=== PATIENT | male | born 1960 | race Caucasian/White ===

== ENCOUNTER → 2018-02-12 | Outpatient (CLI) | payer OTHER ==
[2018-02-12 14:20] LABS: HCT 45.8 % (39.0-53.0); HGB 14.5 gm/dL (13.0-17.5); MCH 29.8 pg (25.0-35.0); MCHC 31.7 g/dL (31.0-37.0); MCV 94.1 fL (80.0-100.0); Mean Platelet Volume 6.7; Platelet Count 300 k/uL (150-450); RBC 4.87 m/uL (4.30-5.90); RDW 13.7 % (11.5-15.5)
[2018-02-12 14:28] LABS: Potassium 4.5 mmol/L (3.5-5.1)
[2018-02-12 16:24] LABS: Magnesium 1.8 mg/dL (1.6-2.3)
== END | disposition home or self-care (01) ==
LOC: LABPAT 13:56
PROVIDERS: ATTEND Internal Medicine Interventional Cardiology
DX: Z01.812 Encounter for preprocedural laboratory examination (principal); I10 Essential (primary) hypertension; E78.2 Mixed hyperlipidemia; I20.0 Unstable angina
CPT/HCPCS: 36415; 80051; 82565; 82947; 83735; 84520; 85027

== ENCOUNTER 2018-02-19 08:01 | Day surgery (SDC) | payer OTHER ==
[2018-02-19] MEDS ORDERED: diphenhydrAMINE 50 MG/ML 1 ML VIAL ONE (08:57)
[2018-02-19] MEDS ORDERED: VERAPAMIL 2.5 MG/ML 2 ML AMP ONE (08:57)
[2018-02-19] MEDS ORDERED: MIDAZOLAM 2 MG/2 ML VIAL ONE (08:57)
[2018-02-19] MEDS ORDERED: LIDOCAINE 1% INJ 10MG/ML (20 ML MDV) ONE (08:57)
[2018-02-19] MEDS ORDERED: ASPIRIN 325 MG TAB PO ONE (09:30)
[2018-02-19] MEDS ORDERED: ALPRAZolam 0.25 MG TAB PO PRN (09:30)
[2018-02-19] MEDS ORDERED: SODIUM CHLORIDE 0.9% 1,000 ML in EMPTY BAG 1 BAG IV ONE (09:30)
[2018-02-19] MEDS ORDERED: NITROGLYCERIN SL TABS 0.4 MG TAB SUBLINGUAL PRN ×2 (09:30→10:55)
[2018-02-19] MEDS ORDERED: ALPRAZolam 0.5 MG TAB PO PRN (09:30)
[2018-02-19] MEDS ORDERED: ATORVASTATIN 80 MG TAB PO ONE (09:30)
[2018-02-19] MEDS ORDERED: MIDAZOLAM 2 MG/2 ML VIAL IVP ONE (09:35)
[2018-02-19] MEDS ORDERED: diphenhydrAMINE 50 MG/ML 1 ML VIAL IVP ONE (09:35)
[2018-02-19] MEDS ORDERED: LIDOCAINE 1% INJ 10MG/ML (20 ML MDV) SQ ONE (09:39)
[2018-02-19] MEDS ORDERED: VERAPAMIL SYRINGE (5 MG/10 ML) INTRAARTER ONE ×2 (09:43→10:18)
[2018-02-19] MEDS ORDERED: HEPARIN SODIUM 1,000 UN/ML (10ML VL) ONE (09:43)
[2018-02-19] MEDS ORDERED: HEPARIN SODIUM 1,000 UN/ML (10ML VL) IVPB ONE (09:45)
[2018-02-19] MEDS ORDERED: BIVALIRUDIN BOLUS 250 MG/50 ML IV ONE (10:05)
[2018-02-19] MEDS ORDERED: BIVALIRUDIN 250 MG in SODIUM CHLORIDE 0.9% 50 ML IV ONE (10:06)
[2018-02-19] MEDS ORDERED: NITROGLYCERIN 1000MCG/10ML SYRINGE INTRACORON ONE (10:13)
[2018-02-19] MEDS ORDERED: CLOPIDOGREL 75 MG TAB ONE (10:16)
[2018-02-19] MEDS ORDERED: IOPAMIDOL-300 100ML BTL INJ ONE (10:17)
[2018-02-19] MEDS ORDERED: CLOPIDOGREL 75 MG TAB PO ONE (10:18)
[2018-02-19] MEDS ORDERED: IOPAMIDOL-370 100ML BTL INJ ONE (10:18)
[2018-02-19] MEDS ORDERED: ATROPINE SULFATE 0.1 MG/ML 10ML SYRINGE IV PRN (10:55)
[2018-02-19] MEDS ORDERED: ZOLPIDEM 5 MG TAB PO PRN (10:55)
[2018-02-19] MEDS ORDERED: MAG HYDROX/AL HYDROX/SIMETH 30 ML CUP PO PRN (10:55)
[2018-02-19] MEDS ORDERED: RX INFO: IV CONTRAST WAS GIVEN 1 EACH MISC MISCELLANE PRN (10:55)
--- NOTE | 2018-02-19 11:51 | CC ---
CARDIAC CATHETERIZATION REPORT DATE OF SERVICE: 02/19/2018 PROCEDURES: 1. Left heart catheterization and coronary angiography. 2. PTCA and stenting of proximal dominant circumflex coronary artery with a drug- eluting stent. PERFORMED BY: Dr. Carlos Enrique Rodrigez. Moderate conscious sedation time was 47 minutes. Patient was administered Versed and Benadryl and his oxygen saturation, hemodynamics and EKG were monitored closely. CLINICAL INFORMATION: Mr. Tyshawn Camacho is a 57-year-old gentleman with a known history of CAD, prior stenting of LAD, which was a proximal LAD performed in November of 2013. At that time, he had moderate disease in the dominant circumflex and also small nondominant RCA. He is going for a cervical spine surgery, but before surgery, he has noticed that he is having significant symptoms of chest pressure and heaviness even with [id number] activity. Walking a block is also an effort for him with heaviness and pressure in the upper chest and therefore I would recommend coronary angiography. Risks, benefits, options, rationale were explained. PROCEDURE NOTE: Under local anesthesia and strict aseptic precautions, a 6-Japanese introducer was placed in the right radial artery. I used a JR 4 catheter for selective coronary angiography of the left system. I used a JL 3.5 to selectively perform coronary angiography of the LAD. For the circumflex, I switched over to an Ultimate 1 catheter, with this I was able to get good injections. I then noted that he had a significant lesion in the proximal circumflex and performed intervention in the same setting. PCI PROCEDURE DETAILS: The existing 6-Japanese introducer in the right radial artery was used to perform procedure. An Ultimate 1 guide catheter was used to cannulate the left coronary artery with more selective emphasis of the circumflex. A BMW wire was used to cross the lesion. Without predilatation, a 12 mm long 3.0 caliber Xience stent was deployed at 12 atmospheres. Patient had chest pain and very mild inferior ST elevation. Excellent angiographic result was achieved without complication. He received Angiomax bolus and infusion as per protocol and also received 300 mg of Plavix. He was already on aspirin and Plavix combination. Excellent angiographic result without complication was achieved and the findings were discussed with the patient and family. CARDIAC CATHETERIZATION FINDINGS, DETAILS: RIGHT CORONARY ARTERY: Technically this is a nondominant vessel, small in caliber and distribution. Mild diffuse disease gives off a conus branch, has no critical stenosis but there is diffuse disease noted in the mid and distal portion of the nondominant RCA. LEFT MAIN CORONARY ARTERY: Short patent vessel that seems immediately bifurcates. Left main hardly exists. LEFT ANTERIOR DESCENDING CORONARY ARTERY: Good caliber vessel that is widely patent at the site of previous stenting. Gives off septal and diagonal branches, has no significant disease other than minor irregularities and the stented segment is widely patent. LEFT POSTERIOR CIRCUMFLEX CORONARY ARTERY : Technically, this is a dominant vessel that has a proximal smooth lesion of about 70%-75%. eccentric in nature. Best seen in the AP caudal projection, it gives off an obtuse marginal and distally bifurcates into PDA and PLV, both of which have minor diffuse irregularities. There is mild to moderate diffuse disease throughout, but the mid/proximal circumflex has a 70%-75% eccentric lesion. LEFT VENTRICULOGRAM was not performed but LV pressures were checked. The left ventricular end-diastolic pressure was 12 mmHg. Patient was advised PCI of circumflex that was performed expeditiously with excellent angiographic result and a drug-eluting stent was deployed. MMODL / IJN: [id number] /
[2018-02-19] MEDS: SODIUM CHLORIDE 0.9% 1,000 ML IV SCH (15:27)
[2018-02-19 15:36] VITALS: BMI 44.1
[2018-02-19] MEDS ORDERED: PRAVASTATIN SODIUM 80 MG TAB PO SCH (21:03)
[2018-02-19] MEDS ORDERED: CLOPIDOGREL 75 MG TAB PO SCH (21:03)
[2018-02-19] MEDS: METOPROLOL TARTRATE 50 MG TAB PO SCH (21:56)
[2018-02-19 23:33] VITALS: TEMP 97.9
[2018-02-20] MEDS: SODIUM CHLORIDE 0.9% 1,000 ML IV SCH (01:04)
[2018-02-20 04:22] VITALS: RESP 16
[2018-02-20 06:15] LABS: Basophils # (A) 0.1 k/uL (0-0.2); Basophils % (A) 1 %; Eosinophils # (A) 0.5 k/uL (0-0.7); Eosinophils % (A) 5 %; HCT 45.8 % (39.0-53.0); HGB 14.9 gm/dL (13.0-17.5); Lymphocytes # (A) 3.7 k/uL (1.0-4.8); Lymphocytes % (A) 37 %; MCH 30.3 pg (25.0-35.0); MCHC 32.5 g/dL (31.0-37.0); MCV 93.4 fL (80.0-100.0); Mean Platelet Volume 6.7; Monocytes # (A) 0.7 k/uL (0-1.0); Monocytes % (A) 7 %; Neutrophils # (A) 4.9 k/uL (1.3-7.7); Neutrophils % (A) 49 %; Platelet Count 286 k/uL (150-450); RBC 4.91 m/uL (4.30-5.90); RDW 13.5 % (11.5-15.5); WBC 10.1 k/uL (3.8-10.6)
[2018-02-20 06:30] LABS: Calcium 9.3 mg/dL (8.4-10.2); Potassium 4.7 mmol/L (3.5-5.1)
[2018-02-20] MEDS ORDERED: LEVOTHYROXINE 100 MCG TAB PO SCH (06:30)
[2018-02-20] MEDS ORDERED: LEVOTHYROXINE 75 MCG TAB PO SCH (06:30)
[2018-02-20] MEDS: METOPROLOL TARTRATE 50 MG TAB PO SCH (08:47)
[2018-02-20] MEDS ORDERED: CLOPIDOGREL 75 MG TAB PO SCH (09:00)
[2018-02-20] MEDS ORDERED: LOSARTAN-HCTZ 50-12.5 MG 1 EACH TAB PO SCH (09:00)
[2018-02-20] MEDS ORDERED: ASPIRIN 81 MG PO SCH ×2 (09:00)
[2018-02-20 09:04] VITALS: BP 133/91; PULSE 69
--- NOTE | 2018-02-20 09:26 | DS ---
DISCHARGE SUMMARY DATE OF ADMISSION: 02/19/2018. DATE OF DISCHARGE: 02/20/2018. DIAGNOSES: 1. Unstable angina. 2. Hypertension. 3. Hypercholesterolemia. PROCEDURES PERFORMED: Left heart catheterization, coronary angiography and PTCA and stenting of proximal/mid circumflex with a drug-eluting stent. Mr. Camacho was brought in a cardiac cath because of symptoms strongly suggestive of unstable angina. This gentleman underwent stenting of the proximal LAD 4 years ago, has diffusely diseased dominant circumflex and a nondominant RCA. Cardiac cath revealed that the LAD stent was widely patent and no significant disease was noted in LAD. There was mild to moderate diffuse disease in circumflex, which was a dominant vessel with a proximal smooth 70% to 75% stenosis which was progression of disease compared to the previous study from 2013. He underwent PCI of this with a single 12 mm long 3.0 caliber drug-eluting stent with excellent angiographic result. Postprocedure course was uneventful. His right radial cath site is clean and dry with a good pulse. His labs were reviewed and EKG was reviewed. Both of these were unremarkable. Blood pressure today was 128/70, pulse rate was 70 per minute. S1, S2 heard normally, short systolic murmur at base was audible. Lungs are clear. Abdomen and lower extremity exam was unchanged. Right radial cath site is clean and dry with a good pulse. This patient will be discharged today and will be seen by me in the office this Monday at 9 a.m. February 23. Discharge instructions regarding activity, diet, medications, and prescriptions were given. He will be discharged on 80 mg of pravastatin since this is the only statin he can tolerate. He will continue beta blockers, aspirin, Plavix and losartan as advised. I will see him in the office on the . MMODL / IJN: [id number] /
== END 2018-02-20 09:05 ==
LOC: CATHCVL 08:01 → 6SEL 10:15 → CATHCVL 02-20 09:05
PROVIDERS: ATTEND Internal Medicine Interventional Cardiology
DX: I25.110 Atherosclerotic heart disease of native coronary artery with unstable angina pectoris (principal); I10 Essential (primary) hypertension; E78.5 Hyperlipidemia, unspecified; Z72.0 Tobacco use; Z95.5 Presence of coronary angioplasty implant and graft; E78.00 Pure hypercholesterolemia, unspecified; E66.9 Obesity, unspecified; Z68.41 Body mass index [BMI] 40.0-44.9, adult; Z79.02 Long term (current) use of antithrombotics/antiplatelets; Z79.82 Long term (current) use of aspirin; Z79.890 Hormone replacement therapy; Z79.899 Other long term (current) drug therapy; Z88.8 Allergy status to other drugs, medicaments and biological substances
CPT/HCPCS: 93458; 80048; 85025; C9600; C1769 ×3; C1874; C1887; C1894; J2250; J1200; J2001; J1644; J0583; Q9967 ×2

== ENCOUNTER → 2019-01-22 | Outpatient (CLI) | payer OTHER ==
--- NOTE | 2019-01-22 12:23 | XR ---
EXAMINATION TYPE: XR knee limited RT DATE OF EXAM: 01/22/2019 CLINICAL HISTORY: Right knee pain TECHNIQUE: 2 views of the right knee were obtained. COMPARISON: None. FINDINGS: There is no acute fracture/dislocation evident in right knee. There are tricompartmental o steophytes and bicompartmental chondrocalcinosis of the medial and lateral compartments. Calcificatio ns beginning in the lateral compartment extend into the lateral recess additionally there is bulbous contour and expansion of the proximal fibular head, partially visualized with possible old fracture d eformity of the proximal diaphysis of the fibular head. No sizable suprapatellar joint effusion. Exte nsor mechanism is intact radiographically. Normal atherosclerosis.. IMPRESSION: 1. No acute fracture or dislocation in the right knee. 2. Moderate tricompartmental arthrosis and bicompartmental chondrosis with additional calcifications in the lateral compartment and lateral recess that may relate to sequela prior injury/old calcified m eniscal tear. 3. Expansile fibular head lesion, partially visualized. This could be further evaluated with oblique plain film radiographs or CTs. This most commonly represents a benign nonossifying fibroma.
--- NOTE | 2019-01-22 13:47 | XR ---
EXAMINATION TYPE: XR lumbosacral spine min 4V DATE OF EXAM: 01/22/2019 CLINICAL HISTORY: Low back pain in right knee pain TECHNIQUE: Frontal, lateral, and oblique images of the lumbar spine are obtained. COMPARISON: None FINDINGS: There are 5 lumbar type vertebral bodies identified. The lumbar spine shows satisfactory alignment without evidence of acute fracture or dislocation. Vertebral body heights and disk space he ights are within normal limits. Multilevel facet arthropathy is seen as well as small anterior osteo phytes throughout the visualized lower thoracic and lumbar spine. The oblique images appear within no rmal limits. The overlying soft tissue appears unremarkable. Moderate atherosclerosis of the abdomin al aorta. IMPRESSION: 1. No acute fracture or malalignment is seen in the lumbar spine. 2. Mild multilevel degenerative disc disease of the lumbar spine.
== END | disposition home or self-care (01) ==
LOC: RADXRMAIN 11:23
PROVIDERS: ATTEND Family Medicine
DX: M51.36 Other intervertebral disc degeneration, lumbar region (principal); M17.11 Unilateral primary osteoarthritis, right knee
CPT/HCPCS: 72110

== ENCOUNTER 2020-05-19 20:24 | Inpatient (IN) | payer OTHER ==
[2020-05-19] MEDS ORDERED: NITROGLYCERIN SL TABS 0.4 MG TAB SUBLINGUAL STA ×2 (20:29)
[2020-05-19] MEDS ORDERED: ASPIRIN 81 MG PO STA (20:29)
[2020-05-19 20:34] LABS: Glucose,Whole Blood 154 mg/dL (75-99)
[2020-05-19] MEDS ORDERED: HEPARIN SODIUM,PORCINE 5,000 UNIT/ML 1 ML VIAL IV ONE (20:34)
--- NOTE | 2020-05-19 20:34 | ED ---
General Adult HPI - General Stated complaint: Chest Pain Time Seen by Provider: 05/19/20 20:29 Source: patient, EMS, RN notes reviewed Mode of arrival: EMS Limitations: no limitations - History of Present Illness Initial comments: Patient is a pleasant 60-year-old male presenting to the emergency Department with complaints of chest discomfort. Onset of symptoms was around 7:00. Patient was doing a lot of heavy exertion today. Discomfort feels like indigestion in his chest is radiation towards the neck. Patient did have associated dyspnea, nausea and diaphoresis that have resolved. Discomfort was severe however has improved to 7/10 with 1 nitroglycerin by EMS. Symptoms are similar to previous time patient needed stents. No leg pain or leg swelling. - Related Data Home Medications Medication Instructions Recorded Confirmed Levothyroxine Sodium [Synthroid] 175 mcg PO DAILY 11/29/13 02/19/18 Clopidogrel Bisulfate [Plavix] 75 mg PO HS 02/14/18 02/19/18 HYDROcodone/APAP 10-325MG [[place] 1 tab PO BID PRN 02/14/18 02/19/18 10-325] Losartan-Hctz 50-12.5 mg [Hyzaar 2 each PO QAM 02/14/18 02/19/18 50-12.5] Previous Rx's Medication Instructions Recorded Aspirin EC [Ecotrin Low Dose] 81 mg PO DAILY #30 tablet. 12/04/13 Aspirin 81 mg PO DAILY chew 02/19/18 Metoprolol Tartrate [Lopressor] 50 mg PO DAILY #0 02/19/18 Nitroglycerin Sl Tabs [Nitrostat] 0.4 mg SUBLINGUAL Q5M PRN #25 tab 02/19/18 Pravastatin Sodium [Pravachol] 80 mg PO HS #0 02/19/18 Allergies Allergy/AdvReac Type Severity Reaction Status Date / Time atorvastatin calcium AdvReac Swelling Verified 05/19/20 20:31 [From Lipitor] Review of Systems ROS Statement: Those systems with pertinent positive or pertinent negative responses have been documented in the HPI. ROS Other: All systems not noted in ROS Statement are negative. Constitutional: Denies: fever Eyes: Denies: eye pain ENT: Denies: ear pain Respiratory: Reports: as per HPI. Denies: cough Cardiovascular: Reports: as per HPI, chest pain Endocrine: Denies: fatigue Gastrointestinal: Denies: abdominal pain Genitourinary: Denies: dysuria Musculoskeletal: Denies: back pain Skin: Denies: rash Neurological: Denies: weakness Past Medical History Past Medical History: Chest Pain / Angina, Hyperlipidemia, Hypertension, My ocardial Infarction ([place]), Osteoarthritis (OA), Renal Disease, Sleep Apnea/CPAP/BIPAP, Thyroid Disorder Additional Past Medical History / Comment(s): no cpap used, "lung infect ion"2014, constipation, hemorrhoid, poor kidney funtion- 50% function Last Myocardial Infarction Date:: unknown History of Any Multi-Drug Resistant Organisms: None Reported Past Surgical History: Heart Catheterization With Stent, Orthopedic Surgery Additional Past Surgical History / Comment(s): LEFT HIP SX -PIN PLACED-SINCE REMOVED, one cardiac stent, rt knee surgery with clamp and screw-later removed Past Anesthesia/Blood Transfusion Reactions: No Reported Reaction Additional Past Anesthesia/Blood Transfusion Reaction / Comment(s): . Date of Last Stent Placement:: 2013 Past Psychological History: No Psychological Hx Reported Additional Psychological History / Comment(s): denies Past Alcohol Use History: None Reported Additional Past Alcohol Use History / Comment(s): quit smoking 2007, smoked for 2 yrs, up to 4 PPD Past Drug Use History: Marijuana - Past Family History Mother Family Medical History: Deep Vein Thrombosis (DVT) General Exam Limitations: no limitations General appearance: alert Head exam: Present: normocephalic Eye exam: Present: normal appearance Neck exam: Present: normal inspection Respiratory exam: Present: normal lung sounds bilaterally Cardiovascular Exam: Present: regular rate, normal rhythm Expanded Peripheral pulses: 2+: Radial (R), Radial (L), Dorsalis Pedis (R), Dorsalis Pedis (L) GI/Abdominal exam: Present: soft. Absent: tenderness Extremities exam: Present: normal inspection. Absent: pedal edema, calf tenderness Neurological exam: Present: alert Psychiatric exam: Present: normal affect, normal mood Skin exam: Present: normal color Course Vital Signs 05/19/20 05/19/20 05/19/20 20:25 20:30 20:37 Temperature 98.1 F Pulse Rate 81 73 78 Respiratory 18 18 18 Rate Blood Pressure 154/110 158/111 144/108 O2 Sat by Pulse 97 96 92 L Oximetry 05/19/20 20:47 Temperature Pulse Rate 81 Respiratory 18 Rate Blood Pressure 137/99 O2 Sat by Pulse 95 Oximetry - Reevaluation(s) Reevaluation #1: 05/19/20 20:31 STEMI alert was called 05/19/20 20:33 Dr. Beatty is present and evaluating the patient. 05/19/20 20:35 Repeat EKG shows normal sinus rhythm 78. IL 186. QRS 70. QT 378. QTC 4:30. Normal axis. Normal QRS. Inferior ST elevation with poor light changes V6. ST depression V1 and V2 as well as aVL. 05/19/20 20:58 Dr. Fisher has been paged for admission, covering for Dr. Alonzo. EKG Findings - EKG Comments: EKG Findings:: EKG shows sinus rhythm with a rate of 77. IL 192. QRS 72. QT 368. QTC 416. Normal axis. No QRS. Inferior ST elevation. ST depression V1 and V2 as well as aVL. There is some ST elevation in V6 as well as. Medical Decision Making - Medical Decision Making Patient reevaluated and improved, discomfort 10/03. - Lab Data Result diagrams: 05/19/20 20:40 Lab Results 05/19/20 05/19/20 Range/Units 20:33 20:40 WBC 14.0 H (3.8-10.6) k/uL RBC 4.71 (4.30-5.90) m/uL Hgb 14.7 (13.0-17.5) gm/dL Hct 44.5 (39.0-53.0) % MCV 94.5 (80.0-100.0) fL MCH 31.3 (25.0-35.0) pg MCHC 33.1 (31.0-37.0) g/dL RDW 13.0 (11.5-15.5) % Plt Count 334 (150-450) k/uL MPV 6.8 Neutrophils % 79 % Lymphocytes % 13 % Monocytes % 5 % Eosinophils % 1 % Basophils % 1 % Neutrophils # 11.0 H (1.3-7.7) k/uL Lymphocytes # 1.9 (1.0-4.8) k/uL Monocytes # 0.7 (0-1.0) k/uL Eosinophils # 0.2 (0-0.7) k/uL Basophils # 0.2 (0-0.2) k/uL POC Glucose (mg/dL) 154 H (75-99) mg/dL POC Glu Structural Engineering Project Manager ID Pooja Cota - Radiology Data Radiology results: image reviewed (Chest x-ray does have some increase in interstitial infiltrates. Small right effusion.) Critical Care Time Critical Care Time: Yes Total Critical Care Time: 31 Disposition Clinical Impression: STEMI (ST elevation myocardial infarction) Disposition: ADMITTED IP TO THIS [facility] Condition: Critical Referrals: Crescencio Alonzo MD [Primary Care Provider] - 1-2 days Decision Time: 20:33
[2020-05-19] MEDS ORDERED: NITROGLYCERIN OINT 1 INCH/GM PACKET TOPICAL STA (20:40)
--- NOTE | 2020-05-19 20:53 | P.CRDCN ---
History of Present Illness History of present illness: This is Dr. Beatty dictating a consult on this patient The patient was interviewed and examined IMPRESSION / ASSESSMENT: Acute inferior posterior MA with ongoing chest discomfort Symptom onset around 7 PM this evening History of CAD status post stenting in the past, patient Dr. Rodrigez History of hypertension Severe ALLERGY to atorvastatin Elevated blood pressure PLAN: Nitropaste heparin and antiplatelet agents. Patient is already taking Plavix Discussed with ER physician, discussed with Dr. Rodrigez Activated, we'll proceed for urgent coronary angiography HPI Patient was having dinner around 7:00. He had a coughing spell and following that he felt as if someone was pushing in the middle of his chest and he had a burning sensation up into the middle of the chest to the neck He is also been expensive shortness of breath for the last 2 months When he arrived in the ER the twelve-lead ECG demonstrated ST elevation in the inferior leads ST depression in V1 and V2 consistent with a posterior extension with ST depression in the high lateral leads, sinus rhythm His blood pressure is elevated After nitroglycerin doses he feels a little better although he does have lingering discomfort Overall he looks comfortable no respiratory distress and gives a full history Nonsmoker history of CAD status post stenting in the past history of hypertension history of severe ALLERGY to atorvastatin, not taking any statins ROS: No fever chills or rigors, no cough, phlegm or expectoration, no nausea, vomiting or diarrhea, no hematuria, dysuria, no musculoskeletal complaints, no strokes or seizures, no skin lesions. EXAMINATION: Afebrile, pulse rate in the 70s, blood pressure 154 110 mmHg, he just took his losartan Breath sounds are clear no rhonchi no crackles Normal heart sounds normal with no gallop, distant No JVD Central obesity Extremities warm no edema abdomen is soft REVIEW OF LABS, ECG & MEDICAL DATA Medications include aspirin Plavix losartan and metoprolol He is not on any statins on account of statin ALLERGY. He says he swells up like a very big balloon! Past Medical History Past Medical History: Chest Pain / Angina, Hyperlipidemia, Hypertension, Myocardial Infarction ([place]), Osteoarthritis (OA), Renal Disease, Sleep Apnea/CPAP/BIPAP, Thyroid Disorder Additional Past Medical History / Comment(s): no cpap used, "lung infection"2015, constipation, hemorrhoid, poor kidney funtion- 50% function Last Myocardial Infarction Date:: unknown History of Any Multi-Drug Resistant Organisms: None Reported Past Surgical History: Heart Catheterization With Stent, Orthopedic Surgery Additional Past Surgical History / Comment(s): LEFT HIP SX -PIN PLACED-SINCE REM [place]Z [place], one cardiac stent, rt knee surgery with clamp and screw-later removed Past Anesthesia/Blood Transfusion Reactions: No Reported Reaction Additional Past Anesthesia/Blood Transfusion Reaction / Comment(s): . Date of Last Stent Placement:: 2013 Past Psychological History: No Psychological Hx Reported Additional Psychological History / Comment(s): denies Past Alcohol Use History: None Reported Additional Past Alcohol Use History / Comment(s): quit smoking 2007, smoked for 2 yrs, up to 4 PPD Past Drug Use History: Marijuana - Past Family History Mother Family Medical History: Deep Vein Thrombosis (DVT) Medications and Allergies Home Medications Medication Instructions Recorded Confirmed Type RX: Levothyroxine Sodium 175 mcg PO DAILY 11/29/13 02/19/18 History [Synthroid] RX: Aspirin EC [Ecotrin Low Dose] 81 mg PO DAILY #30 tablet. 12/04/13 02/19/18 Rx RX: Clopidogrel Bisulfate [Plavix] 75 mg PO HS 02/14/18 02/19/18 History RX: HYDROcodone/APAP 10-325MG 1 tab PO BID PRN 02/14/18 02/19/18 History [[place] 10-325] RX: Losartan-Hctz 50-12.5 mg 2 each PO QAM 02/14/18 02/19/18 History [Hyzaar 50-12.5] RX: Aspirin 81 mg PO DAILY chew 02/19/18 Rx RX: Metoprolol Tartrate [Lopressor] 50 mg PO DAILY #0 02/19/18 02/19/18 Rx RX: Nitroglycerin Sl Tabs 0.4 mg SUBLINGUAL Q5M PRN #25 tab 02/19/18 Rx [Nitrostat] RX: Pravastatin Sodium [Pravachol] 80 mg PO HS #0 02/19/18 02/19/18 Rx Allergies Allergy/AdvReac Type Severity Reaction Status Date / Time atorvastatin calcium AdvReac Swelling Verified 05/19/20 20:31 [From Lipitor] Physical Exam Vitals: Vital Signs Temp Pulse Resp BP Pulse Ox 05/19/20 20:47 81 18 137/99 95 05/19/20 20:37 78 18 144/108 92 L 05/19/20 20:30 73 18 158/111 96 05/19/20 20:25 98.1 F 81 18 154/110 97 Intake and Output 05/19/20 05/19/20 05/19/20 06:59 14:59 22:59 Other: Weight 123.15 kg Results Intake and Output 05/19/20 05/19/20 05/19/20 06:59 14:59 22:59 Other: Weight 123.15 kg Patient Weight 05/20/20 06:59 Weight 123.15 kg
[2020-05-19 20:54] LABS: Basophils # (A) 0.2 k/uL (0-0.2); Basophils % (A) 1 %; Eosinophils # (A) 0.2 k/uL (0-0.7); Eosinophils % (A) 1 %; HCT 44.5 % (39.0-53.0); HGB 14.7 gm/dL (13.0-17.5); Lymphocytes # (A) 1.9 k/uL (1.0-4.8); Lymphocytes % (A) 13 %; MCH 31.3 pg (25.0-35.0); MCHC 33.1 g/dL (31.0-37.0); MCV 94.5 fL (80.0-100.0); Mean Platelet Volume 6.8; Monocytes # (A) 0.7 k/uL (0-1.0); Monocytes % (A) 5 %; Neutrophils % (A) 79 %; Platelet Count 334 k/uL (150-450); RBC 4.71 m/uL (4.30-5.90)
--- NOTE | 2020-05-19 20:56 | XR ---
EXAMINATION TYPE: XR chest 1V portable DATE OF EXAM: 05/19/2020 COMPARISON: 11/29/2013 HISTORY: Chest pain TECHNIQUE: FINDINGS: Heart is fairly normal. There is coarse interstitial density in the lungs. There is slight blunting of the right costophrenic angle. There is no obvious heart failure. There are no hilar darrell s. IMPRESSION: Interstitial pulmonary infiltrates increased compared to last exam. Small right pleural e ffusion. No definite heart failure.
[2020-05-19 21:10] LABS: Albumin 4.1 g/dL (3.5-5.0); Calcium 9.5 mg/dL (8.4-10.2); Magnesium 1.8 mg/dL (1.6-2.3); Potassium 4.1 mmol/L (3.5-5.1); Total Bilirubin 0.5 mg/dL (0.2-1.3); Total Protein 7.4 g/dL (6.3-8.2)
[2020-05-19] MEDS: MIDAZOLAM 2 MG/2 ML VIAL IVP ONE ×2 (21:16→21:32)
[2020-05-19] MEDS ORDERED: LIDOCAINE 1% INJ 10MG/ML (20 ML MDV) SQ ONE (21:16)
[2020-05-19] MEDS: fentaNYL (PF) 50 MCG/ML 2 ML AMP IV ONE ×2 (21:16→21:32)
[2020-05-19] MEDS ORDERED: VERAPAMIL SYRINGE (5 MG/10 ML) INTRAARTER ONE (21:17)
[2020-05-19 21:21] LABS: INR 0.9 (<1.2); Partial Thromboplastin Time 23.6 sec (22.0-30.0); Prothrombin Time 9.6 sec (9.0-12.0)
[2020-05-19] MEDS: HEPARIN SODIUM 1,000 UN/ML (10ML VL) IV ONE ×3 (21:26→22:28)
[2020-05-19] MEDS ORDERED: NITROGLYCERIN 1000MCG/10ML SYRINGE INTRACORON ONE (21:31)
[2020-05-19] MEDS ORDERED: IV FLUID CONTINUATION 400 ML IV ONE (21:32)
[2020-05-19] MEDS ORDERED: CLOPIDOGREL 75 MG TAB PO ONE (21:34)
[2020-05-19] MEDS ORDERED: IOPAMIDOL-370 125ML BTL INJ ONE ×2 (21:37)
[2020-05-19] MEDS ORDERED: IOPAMIDOL-250 100ML BTL INTRAARTER ONE ×2 (22:33→22:56)
[2020-05-19] MEDS ORDERED: SODIUM CHLORIDE 0.9% 1,000 ML IV ONE (22:38)
[2020-05-19] MEDS ORDERED: FUROSEMIDE 10 MG/ML 4 ML VIAL IV ONE (23:26)
[2020-05-19] MEDS ORDERED: NITROGLYCERIN SL TABS 0.4 MG TAB SUBLINGUAL PRN (23:41)
[2020-05-19] MEDS ORDERED: ATROPINE SULFATE 0.1 MG/ML 10ML SYRINGE IV PRN (23:41)
[2020-05-19] MEDS ORDERED: RX INFO: IV CONTRAST WAS GIVEN 1 EACH MISC MISCELLANE PRN (23:41)
--- NOTE | 2020-05-19 23:42 | P.PRCINT ---
Percutaneous Coronary Int. - Percutaneous Coronary Intervention Percutaneous Coronary Intervention: PROCEDURES PERFORMED: Selective left coronary angiography, successful PCI of distal OM1 with a 2.5 x 12 Xience DANGELO, IVUS of circumflex, PCI of proximal circumflex with a 3.5 x 33 mm Xience DANGELO, postdilated proximally with a 4.0 noncompliant balloon, PCI of mid circumflex with a 3.0 x 23 mm Xience DANGELO, kissing balloons with 3.0 x 12 mm balloons at the bifurcation. INDICATION: Inferior STEMI HISTORY: Patient is a pleasant 60-year-old male with history of statin allergy, coronary artery disease with prior PCI of his LAD in 2013, PCI of the proximal circumflex in 2018, CKD who presents for sudden onset of chest pain approximately 7 PM tonight. He was found to have inferior STEMI and can labeler was activated. PROCEDURE: After the risks, benefits and alternatives of the above mentioned procedure explained in detail with the patient, informed consent was obtained. 2% lidocaine was used to anesthetize the right radial area. A 6Fr sheath was placed in the right radial artery using modified Seldinger technique. A 6Fr CLS 4.0 guide catheter was used to engage the left main. Angiograms showed an occluded circumflex. A 0.014 BMW wire was advanced into the distal OM1 without difficulty. The proximal circumflex lesion was predilated with a 2.5 x 12mm balloon. There was distal thrombus versus a significant lesion in the distal OM1 that did improve with nitroglycerin or manipulation with a balloon and the refore the lesion was stented with a 2.5 x 12 mm Xience DANGELO. Due to the thrombus being at the site of a prior stent, the decision was made to IVUS. The IVUS showed a patent stent without much instent stenosis with the stent being somewhat undersized at approximately 2.5 x 3.0mm and a reference vessel of 3.5 distally and 4.0 proximal to the stent with some mild to moderate disease throughout the proximal circumflex. Therefore a 3.5 x 33mm Xience DANGELO was placed. The stent was post dilated proximally and at the mid stent with a 4.0 NC balloon. Repeat IVUS showed good stent apposition with stent being approximately 3.5 x 3.5 distally and 4.0 x 4.0 proximally. The wire was removed and angiography showed an additional circumflex lesion distal to the OM1 bifurcation. Therefore a 0.014 BMW wire was used to advance into the distal circumflex. IVUS was performed which showed diffuse disease of this area as well as part of the recently placed stent extending into the OM1. Therefore predilation through the stent struts was performed with a 2.0 then 3.0 balloon. Next a 3.0 x 23mm Xience DANGELO was placed overlapping with the 3.5 mm stent which was more proximal. Next an additional 0.014 BMW wire was advanced into the OM1. Kissing balloons were performed with two 3.0 x 12mm balloons at the circumflex, OM1 bifurcation. IVUS was performed in both the circumflex into the OM1 and circumflex proper which showed adequate stent expansion, kissing stent with Lopez- jayro showing 2.75 x 3.0mm diameter of each vessel. Preintervention there was a 100% stenosis and DANIEL 0 flow and post intervention there was <10% residual stenosis and DANIEL 3 flow without evidence of dissection. The wire was removed and final angiograms were taken. The right coronary artery was not imaged secondary to being known to be small and nondominant. The right radial sheath was removed and a TR band was placed with hemostasis achieved. The patient tolerated the procedure well. Patient was transported ba to the post catheterization holding area in stable condition. Conscious Sedation: Patient was monitored under the direct supervision of vision of myself for conscious sedation using Versed and fentanyl for a total duration of 113 minutes HEMODYNAMICS: Here: 110/70 SELECTIVE CORONARY ARTERIOGRAPHY: LEFT MAIN: The left main is a large caliber vessel with nearly separate ostia. There is no significant stenosis. LEFT ANTERIOR DESCENDING CORONARY ARTERY: LAD is a large caliber vessel which wraps around to the apex. There is a patent mid LAD stent. Diagonal 1 and 2 are small caliber with mild 30-40% stenosis. The mid LAD has 30% stenosis. LEFT CIRCUMFLEX CORONARY ARTERY: Left circumflex is a large caliber vessel with 100% proximal stenosis at the proximal edge of the stent. After opening the artery, there is distal OM1 95% stenosis. There is additional mid circumflex tandem 90% and 80% circumflex stenosis just distal to the OM1 bifurcation. RIGHT CORONARY ARTERY: The RCA was not imaged however know to be small caliber and nondominant. FINAL IMPRESSION: 1. Coronary artery disease as described above with 100% occlusion of a dominant circumflex. S/p successful PCI of distal OM1 with a 2.5 x 12 Xience DANGELO, PCI of proximal circumflex with a 3.5 x 33 mm Xience DANGELO, postdilated proximally with a 4.0 noncompliant balloon, PCI of mid circumflex with a 3.0 x 23 mm Xience DANGELO, kissing balloons with 3.0 x 12 mm balloons at the bifurcation. PLAN: 1. Aggressive risk factor modification per most recent ACC/AHA guidelines. 2. Check 2D echo
[2020-05-20 01:35] LABS: Glucose,Whole Blood 139 mg/dL (75-99)
[2020-05-20] MEDS: MAG HYDROX/AL HYDROX/SIMETH 30 ML CUP PO PRN ×2 (02:03→07:21)
[2020-05-20] MEDS: ZOLPIDEM 5 MG TAB PO PRN ×2 (02:03→21:01)
[2020-05-20] MEDS ORDERED: HYDROcodone/APAP 10-325MG 1 EACH TAB PO PRN (05:34)
[2020-05-20] MEDS ORDERED: NITROGLYCERIN SL TABS 0.4 MG TAB SUBLINGUAL PRN (05:34)
[2020-05-20] MEDS: LEVOTHYROXINE 100 MCG TAB PO SCH (07:21)
[2020-05-20] MEDS: LEVOTHYROXINE 75 MCG TAB PO SCH (07:21)
[2020-05-20] MEDS: ASPIRIN 81 MG PO SCH (08:35)
[2020-05-20] MEDS: CLOPIDOGREL 75 MG TAB PO SCH (08:36)
[2020-05-20 08:57] LABS: Basophils # (A) 0.1 k/uL (0-0.2); Basophils % (A) 1 %; Eosinophils # (A) 0.1 k/uL (0-0.7); Eosinophils % (A) 0 %; HCT 44.8 % (39.0-53.0); HGB 14.4 gm/dL (13.0-17.5); Lymphocytes # (A) 2.3 k/uL (1.0-4.8); Lymphocytes % (A) 17 %; MCH 30.9 pg (25.0-35.0); MCHC 32.2 g/dL (31.0-37.0); MCV 96.1 fL (80.0-100.0); Mean Platelet Volume 6.9; Monocytes % (A) 7 %; Neutrophils # (A) 10.1 k/uL (1.3-7.7); Neutrophils % (A) 73 %; Platelet Count 290 k/uL (150-450); RBC 4.66 m/uL (4.30-5.90); RDW 13.1 % (11.5-15.5); WBC 13.7 k/uL (3.8-10.6)
[2020-05-20] MEDS ORDERED: ASPIRIN 81 MG PO SCH (09:00)
[2020-05-20] MEDS ORDERED: METOPROLOL TARTRATE 50 MG TAB PO SCH (09:00)
[2020-05-20 09:19] LABS: Calcium 8.9 mg/dL (8.4-10.2); Potassium 4.1 mmol/L (3.5-5.1)
[2020-05-20] MEDS: LOSARTAN-HCTZ 50-12.5 MG 1 EACH TAB PO SCH (10:57)
[2020-05-20 12:02] VITALS: BMI 46.5
--- NOTE | 2020-05-20 14:24 | P.HPIM ---
History of Present Illness H&P Date: 05/20/20 HISTORY OF PRESENT ILLNESS This is a 60-year-old male patient of Dr. Alonzo with past medical history of coronary artery disease with previous myocardial infarctions and stenting, hypertension, hyperlipidemia, hypothyroidism, obstructive sleep apnea unable to tolerate CPAP, remote history of tobacco use. Patient gives history that after dinner he developed shortness of breath as well as chest pain that was in the midsternal area radiating to the left side along with nausea, vomiting, sweats and palpitations. He denies any radiation to his jaw or arm. He denies any syncopal episode. He states these are the same symptoms he presented with his first myocardial infarction. He took a couple nitroglycerin with minimal improvement of his chest pain and called 911 and was brought into the hospital by ambulance. Patient was found to have EKG changes with ST elevation. 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 He was found have a patent stent in the LAD with mild disease in the diagonal and mid LAD. Circumflex showed 100% in the proximal area, OM1 95% stenosis, 90% in the mid circumflex. Patient underwent successful PCI of the OM1 and proximal circumflex. The patient is seen today in the intensive care unit the patient has been hemodynamically stable and expected to transfer to the cardiac stepdown unit today. Patient denies any chest pain, shortness of breath, nausea or vomiting at the time of this evaluation. REVIEW OF SYSTEMS Constitutional: No fever, no chills, no night sweats. No weight change. No weakness, fatigue or lethargy. No daytime sleepiness. EENT: No headache. No blurred vision or double vision, no loss of vision. No loss of Hearing, no ringing in the ears, no dizziness. No nasal drainage or congestion. No epistaxis. No sore throat. Lungs: No shortness of breath, cough, no sputum production. No wheezing. Cardiovascular: No chest pain, no lower extremity edema. No palpitations. No paroxysmal nocturnal dyspnea. No orthopnea. No lightheadedness or dizziness. No syncopal episodes. Abdominal: No abdominal pain. No nausea, vomiting. No diarrhea. No constipation. No bloody or tarry stools.. No loss of appetite. Genitourinary: No dysuria, increased frequency, urgency. No urinary retention. Musculoskeletal: No myalgias. No muscle weakness, no gait dysfunction, no frequent falls. No back pain. No neck pain. Integumentary: No wounds, no lesions. No rash or pruritus. No unusual bruising. No change in hair or nails. Neurologic: No aphasia. No facial droop. No change in mentation. No head injury. No headache. No paralysis. No paresthesia. Psychiatric: No depression. No anxiety. No mood swings. Endocrine: No abnormal blood sugars. No weight change. No excessive sweating or thirst. No cold intolerance. SOCIAL HISTORY Patient was a smoker for greater than 25 years and quit in 1994. He was a 5 pack per day smoker. He states he uses marijuana on a regular basis. No alcohol use. No illicit drug use. He does not have a nebulizer, no oxygen at home. He is . 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 FAMILY HISTORY Mother at age 67 from myocardial infarction. Father at age 68 from heart failure. Patient had total of 9 siblings and 6 have passed from myocardial infarctions or heart related issues. He denies any history of cancers in the family. He has 1 sister still living with history of stroke and 2 siblings with no major medical problems. Patient has 2 children with no major medical problems. PHYSICAL EXAMINATION Gen: This is a 60-year-old morbidly obese male. He is resting in the ICU bed and appears to be comfortable and in no acute distress. HEENT: Head is atraumatic, normocephalic. Pupils equal, round. Sclerae is anicteric. NECK: Supple. No JVD. No lymphadenopathy. No thyromegaly. LUNGS: Clear to auscultation. No wheezes or rhonchi. No intercostal retractions. HEART: Regular rate and rhythm. No murmur. ABDOMEN: Soft. Bowel sounds are present. No masses. No tenderness. EXTREMITIES: No pedal edema. No calf tenderness. Dorsalis pedis palpable bilaterally. NEUROLOGICAL: Patient is awake, alert and oriented x3. Cranial nerves 2 through 12 are grossly intact. ASSESSMENT AND PLAN 1. Acute inferior ST elevated myocardial infarction status post PCI of the distal OM1 and proximal circumflex. Continue aspirin 81 mg daily, Plavix 75 mg daily, Lopressor 50 mg daily, Pravachol 80 mg at bedtime. Cardiology consult appreciated. 2. History of coronary artery disease with previous myocardial infarctions and stenting. Continue as in #1. 3. Hypertension. Continue hydrochlorothiazide/losartan daily, Lopressor. 4. Hyperlipidemia. Continue statin. 5. Objective sleep apnea unable to tolerate CPAP. 6. Remote history of tobacco use. 7. Hypothyroidism. Continue levothyroxine 175 g daily 8. GI prophylaxis. Pepcid Patient will be admitted to the hospital for a minimum of 2 night stay. DISCHARGE PLAN Home in 1-2 days. Impression and plan of care have been directed as dictated by the signing physician. Monica Ho nurse practitioner acting as scribe for signing physician. Past Medical History Past Medical History: Chest Pain / Angina, Hyperlipidemia, Hypertension, Myocardial Infarction (CA), Osteoarthritis (OA), Renal Disease, Sleep Apnea/C PAP/BIPAP, Thyroid Disorder Additional Past Medical History / Comment(s): no cpap used, "lung infection"2014, constipation, hemorrhoid, poor kidney funtion- 50% function Last Myocardial Infarction Date:: 05/19/2020 History of Any Multi-Drug Resistant Organisms: None Reported Past Surgical History: Heart Catheterization With Stent, Orthopedic Surgery Additional Past Surgical History / Comment(s): LEFT HIP SX -PIN PLACED-SINCE REMOVED, one cardiac stent, rt knee surgery with clamp and screw-later removed, 2 discs in neck Past Anesthesia/Blood Transfusion Reactions: No Reported Reaction Additional Past Anesthesia/Blood Transfusion Reaction / Comment(s): . Date of Last Stent Placement:: 05/19/2020 Past Psychological History: Anxiety Smoking Status: Former smoker Past Alcohol Use History: None Reported Additional Past Alcohol Use History / Comment(s): quit smoking 2007, smoked for 2 yrs, up to 4 PPD Past Drug Use History: Marijuana - Past Family History Mother Family Medical History: Deep Vein Thrombosis (DVT) Medications and Allergies Home Medications Medication Instructions Recorded Confirmed Type Levothyroxine Sodium [Synthroid] 175 mcg PO DAILY 11/29/13 05/20/20 History Clopidogrel Bisulfate [Plavix] 75 mg PO HS 02/14/18 05/20/20 History HYDROcodone/APAP 10-325MG [[place] 1 tab PO TID PRN 02/14/18 05/20/20 History 10-325] Aspirin 81 mg PO DAILY chew 02/19/18 05/20/20 Rx Nitroglycerin Sl Tabs [Nitrostat] 0.4 mg SUBLINGUAL Q5M PRN #25 tab 02/19/18 05/20/20 Rx Losartan/Hydrochlorothiazide 1 tab PO DAILY 05/20/20 05/20/20 History [Hyzaar 100-25 Tablet] Metoprolol Tartrate [Lopressor] 50 mg PO DAILY 05/20/20 05/20/20 History Pravastatin Sodium [Pravachol] 80 mg PO HS 05/20/20 05/20/20 History Allergies Allergy/AdvReac Type Severity Reaction Status Date / Time atorvastatin calcium AdvReac Swelling Verified 05/20/20 10:01 [From Lipitor] Physical Exam Vitals: Vital Signs Temp Pulse Resp BP Pulse Ox 05/20/20 08:00 98.1 F 85 20 122/83 94 L 05/20/20 07:00 75 15 127/92 93 L 05/20/20 06:00 86 20 124/88 95 05/20/20 05:00 77 20 124/97 96 05/20/20 04:00 98.4 F 80 18 125/105 96 05/20/20 03:00 81 18 137/94 96 05/20/20 02:00 98 F 86 20 141/99 96 05/19/20 21:00 77 18 147/88 96 05/19/20 20:47 81 18 137/99 95 05/19/20 20:37 78 18 144/108 92 L 05/19/20 20:30 73 18 158/111 96 05/19/20 20:25 98.1 F 81 18 154/110 97 Intake and Output 05/19/20 05/20/20 05/20/20 22:59 06:59 14:59 Intake Total 400 450 150 Output Total 1150 300 Balance 400 -700 -150 Intake: IV 400 450 150 .9 450 150 Output: Urine 1150 300 Other: Weight 123.15 kg 123 kg Results CBC & Chem 7: 05/20/20 07:59 05/20/20 07:59 Labs: Abnormal Lab Results - Last 24 Hours (Table) 05/19/20 05/19/20 05/19/20 Range/Units 20:33 20:40 20:40 WBC 14.0 H (3.8-10.6) k/uL Neutrophils # 11.0 H (1.3-7.7) k/uL BUN (9-20) mg/dL Glucose 165 H (74-99) mg/dL POC Glucose (mg/dL) 154 H (75-99) mg/dL Troponin I (0.000-0.034) ng/mL 05/19/20 05/20/20 05/20/20 Range/Units 20:40 01:34 07:59 WBC 13.7 H (3.8-10.6) k/uL Neutrophils # 10.1 H (1.3-7.7) k/uL BUN (9-20) mg/dL Glucose (74-99) mg/dL POC Glucose (mg/dL) 139 H (75-99) mg/dL Troponin I 0.140 H* (0.000-0.034) ng/mL 05/20/20 Range/Units 07:59 WBC (3.8-10.6) k/uL Neutrophils # (1.3-7.7) k/uL BUN 21 H (9-20) mg/dL Glucose 156 H (74-99) mg/dL POC Glucose (mg/dL) (75-99) mg/dL Troponin I (0.000-0.034) ng/mL Thrombosis Risk Factor Assmnt - Choose All That Apply Other Risk Factors: Yes Each Risk Factor Represents 2 Points: Age 61-74 years, Arthroscopic surgery Other congenital or acquired thrombophilia - If yes, enter type in comment: No Thrombosis Risk Factor Assessment Total Risk Factor Score: 4 Thrombosis Risk Factor Assessment Level: Moderate Risk
--- NOTE | 2020-05-20 17:09 | P.PN ---
Subjective HPI: Patient had PCI to his circumflex, OM1 yesterday and has been doing well without any further chest pain. He did have some SOB after the procedure and Lasix were given. He admits his SOB has much improved. Tolerating a diet. GENERAL: No acute distress, obese NECK: Supple without JVD or thyromegaly. LUNGS: Clear to auscultation bilaterally HEART: Regular rate and rhythm, no rubs or gallops. S1 and S2 heard. D EXTREMITIES: No edema, right radial site healing well ASSESSMENT STEMI with 100% occlusion of dominant circumflex, s/p PCI of circumflex and OM1. Allergy to Lipitor CAD with prior PCI in 2013 to LAD and 2018 to circumflex HTN HLD PLAN Continue aspirin and Plavix for 12 months Continue Losartan and Metoprolol Recheck Lipid panel. Previous LDL in 200's from 2013. Only able to tolerate Pravastatin. May consider outpt PCSK9 inhibitor. Will add Zetia. Await 2D echo. Appears euvolemic currently. Hopeful discharge in next 24 - 48 hrs. Objective - Vital Signs Vital signs: Vital Signs Temp 98.1 F 05/20/20 08:00 Pulse 77 05/20/20 13:32 Resp 16 05/20/20 13:32 BP 98/64 05/20/20 13:32 Pulse Ox 99 05/20/20 13:32 Intake & Output 05/19/20 05/20/20 05/20/20 18:59 06:59 18:59 Intake Total 850 190 Output Total 1150 480 Balance -300 -290 Weight 123 kg 123 kg Intake: IV 850 190 .9 450 190 Output: Urine 1150 480 Other: # Voids 2 - Labs CBC & Chem 7: 05/20/20 07:59 05/20/20 07:59 Labs: Abnormal Lab Results - Last 24 Hours (Table) 05/19/20 05/19/20 05/19/20 Range/Units 20:33 20:40 20:40 WBC 14.0 H (3.8-10.6) k/uL Neutrophils # 11.0 H (1.3-7.7) k/uL BUN (9-20) mg/dL Glucose 165 H (74-99) mg/dL POC Glucose (mg/dL) 154 H (75-99) mg/dL Troponin I (0.000-0.034) ng/mL 05/19/20 05/20/20 05/20/20 Range/Units 20:40 01:34 07:59 WBC 13.7 H (3.8-10.6) k/uL Neutrophils # 10.1 H (1.3-7.7) k/uL BUN (9-20) mg/dL Glucose (74-99) mg/dL POC Glucose (mg/dL) 139 H (75-99) mg/dL Troponin I 0.140 H* (0.000-0.034) ng/mL 05/20/20 Range/Units 07:59 WBC (3.8-10.6) k/uL Neutrophils # (1.3-7.7) k/uL BUN 21 H (9-20) mg/dL Glucose 156 H (74-99) mg/dL POC Glucose (mg/dL) (75-99) mg/dL Troponin I (0.000-0.034) ng/mL
[2020-05-20] MEDS: PRAVASTATIN SODIUM 80 MG TAB PO SCH (20:58)
[2020-05-20] MEDS ORDERED: CLOPIDOGREL 75 MG TAB PO SCH (21:00)
[2020-05-21] MEDS: LEVOTHYROXINE 75 MCG TAB PO SCH (06:26)
[2020-05-21] MEDS: LEVOTHYROXINE 100 MCG TAB PO SCH (06:26)
[2020-05-21 08:18] LABS: Glucose,Whole Blood 143 mg/dL (75-99)
[2020-05-21] MEDS ORDERED: AMIODARONE 360 MG in DEXTROSE 5% IN WATER 200 ML IV ONE ×2 (08:45)
[2020-05-21 08:46] LABS: Basophils # (A) 0.1 k/uL (0-0.2); Basophils % (A) 1 %; Eosinophils # (A) 0.1 k/uL (0-0.7); Eosinophils % (A) 1 %; HCT 43.3 % (39.0-53.0); HGB 13.9 gm/dL (13.0-17.5); Lymphocytes # (A) 3.1 k/uL (1.0-4.8); Lymphocytes % (A) 21 %; MCHC 32.2 g/dL (31.0-37.0); MCV 96.3 fL (80.0-100.0); Monocytes # (A) 0.9 k/uL (0-1.0); Monocytes % (A) 6 %; Neutrophils # (A) 10.4 k/uL (1.3-7.7); Neutrophils % (A) 70 %; Platelet Count 274 k/uL (150-450); RDW 13.3 % (11.5-15.5); WBC 14.9 k/uL (3.8-10.6)
[2020-05-21 08:53] LABS: Calcium 8.9 mg/dL (8.4-10.2)
[2020-05-21] MEDS ORDERED: METOPROLOL TARTRATE 5 MG/5 ML VIAL IVP ONE (09:20)
[2020-05-21] MEDS ORDERED: METOPROLOL TARTRATE 5 MG/5 ML VIAL IVP STA (09:24)
[2020-05-21] MEDS ORDERED: DEXTROSE 5% IN WATER 100 ML with AMIODARONE 150 MG IV ONE ×2 (09:26→17:21)
[2020-05-21] MEDS: MAGNESIUM SULFATE-D5W PMX 1 GM in DEXTROSE/WATER 1 100ML.BAG IVPB SCH ×2 (09:32→10:47)
[2020-05-21] MEDS: METOPROLOL TARTRATE 50 MG TAB PO SCH ×2 (09:34→20:27)
[2020-05-21] MEDS: ASPIRIN 81 MG PO SCH (09:34)
[2020-05-21] MEDS: FAMOTIDINE 20 MG TAB PO SCH (09:34)
[2020-05-21] MEDS: LOSARTAN-HCTZ 50-12.5 MG 1 EACH TAB PO SCH (09:34)
[2020-05-21] MEDS: CLOPIDOGREL 75 MG TAB PO SCH (09:34)
[2020-05-21 09:43] LABS: Cholesterol 194 mg/dL (<200); HDL Cholesterol 46 mg/dL (40-60); LDL Cholesterol,Calculated 116 mg/dL (0-99); Triglycerides 158 mg/dL (<150)
[2020-05-21] MEDS ORDERED: IV FLUID CONTINUATION 1,000 ML IV ONE (11:46)
[2020-05-21] MEDS ORDERED: LIDOCAINE 1% INJ 10MG/ML (20 ML MDV) ONE ×2 (11:56→17:26)
[2020-05-21] MEDS ORDERED: VERAPAMIL 2.5 MG/ML 2 ML AMP ONE ×2 (11:57→11:58)
[2020-05-21] MEDS ORDERED: HEPARIN SODIUM 1,000 UN/ML (10ML VL) ONE (12:06)
[2020-05-21] MEDS ORDERED: fentaNYL (PF) 50 MCG/ML 2 ML AMP ONE (12:06)
[2020-05-21] MEDS ORDERED: MIDAZOLAM 2 MG/2 ML VIAL IV ONE (12:10)
[2020-05-21] MEDS ORDERED: fentaNYL (PF) 50 MCG/ML 2 ML AMP IV ONE (12:11)
[2020-05-21] MEDS ORDERED: LIDOCAINE 1% INJ 10MG/ML (20 ML MDV) SQ ONE (12:11)
[2020-05-21] MEDS ORDERED: VERAPAMIL SYRINGE (5 MG/10 ML) INTRAARTER ONE (12:12)
[2020-05-21] MEDS ORDERED: HEPARIN SODIUM 1,000 UN/ML (10ML VL) IV ONE (12:13)
[2020-05-21] MEDS ORDERED: IOPAMIDOL-370 125ML BTL INJ ONE (12:26)
[2020-05-21] MEDS ORDERED: RX INFO: IV CONTRAST WAS GIVEN 1 EACH MISC MISCELLANE PRN (12:31)
--- NOTE | 2020-05-21 12:38 | P.CARDCATH ---
Date of Procedure: 05/21/20 Preoperative Diagnosis: Recurrent V. tach chest pain and abnormal EKG Postoperative Diagnosis: Patent stents in the proximal circumflex and OM branch. Moderate disease in the distal branches, stable Description of Procedure: HISTORY: This is a 60-year-old gentleman who was admitted to the hospital with acute inferior wall OR and had stent placement of the circumflex and also OM branch by Dr. Rodrigez on . This morning patient had some chest pain and also recurrent episodes of ventricular tachycardia. EKG showed mild ST-T changes in the inferolateral leads with mild ST elevation. Patient is advised to have cardiac cath to make sure there is no progression of the disease and make sure the stents are open CONSENT:I have discussed the risks, benefits and alternative therapies for the above-mentioned procedure and for both sedation/analgesia as well as necessary blood product administration, if indicated, as they pertain to this patient. The patient has indicated understanding and acceptance of the risks and procedures discussed. PROCEDURE: Patient was brought to the lab in a fasting state. Patient was given some IV sedation. The right wrist is infiltrated with lidocaine and right artery was entered using Seldinger technique. A 6-Mexican catheter was left in place and selective coronary arteriography was performed. Patient tolerated the procedure well. TR band was applied for hemostasis. No immediate complications were noted and patient was transferred to [facility] in a stable condition Conscious Sedation: Versed 1mg Fentanyl 50 g Duration 14minutes HEMODYNAMICS: The aortic pressure was about 100/70. Left ventricular end- diastolic pressure was not measured. SELECTIVE CORONARY ARTERIOGRAPHY: LEFT MAIN: Normal length and free of any significant occlusive disease. THE LEFT ANTERIOR DESCENDING CORONARY ARTERY: Moderate in caliber with patent stents without any critical lesions THE LEFT CIRCUMFLEX AND IS CORONARY ARTERY: Large caliber vessel with patent stent in the proximal portion and also in the OM branch. Distal circumflex has moderate disease at the bifurcation of the distal to branches which appears to be in the range of 60-70%, but stable compared to the previous study THE RIGHT CORONARY ARTERY: Not selectively studied LEFT VENTRICULOGRAPHY: Not performed FINAL IMPRESSION: Stable coronary artery disease with patent stents in the circumflex and also the OM branch. LAD disease is stable PLAN: Discussed findings with Dr. Warren who reviewed the films. Continue medical therapy PROGNOSIS: Guarded
[2020-05-21] MEDS: AMIODARONE 300 MG in DEXTROSE 5% IN WATER 250 ML IV SCH ×2 (14:15)
--- NOTE | 2020-05-21 16:18 | P.PN ---
Subjective Progress Note Date: 05/21/20 HISTORY OF PRESENT ILLNESS This is a 60-year-old male patient of Dr. Alonzo with past medical history of coronary artery disease with previous myocardial infarctions and s tenting, hypertension, hyperlipidemia, hypothyroidism, obstructive sleep apnea unable to tolerate CPAP, remote history of tobacco use. Patient gives history that after dinner he developed shortness of breath as well as chest pain that was in the midsternal area radiating to the left side along with nausea, vomiting, sweats and palpitations. He denies any radiation to his jaw or arm. He denies any syncopal episode. He states these are the same symptoms he presented with his first myocardial infarction. He took a couple nitroglycerin with minimal improvement of his chest pain and called 911 and was brought into the hospital by ambulance. Patient was found to have EKG changes with ST elev ation. He was diagnosed with acute inferior posterior [place] and immediately taken to the quality control lab technician. He was found have a patent stent in the LAD with mild disease in the diagonal and mid LAD. Circumflex showed 100% in the proximal area, OM1 95% stenosis, 90% in the mid circumflex. Patient underwent successful PCI of the OM1 and proximal circumflex. The patient is seen today in the intensive care unit the patient has been hemodynamically stable and expected to transfer to the cardiac stepdown unit today. Patient denies any chest pain, shortness of breath, nausea or vomiting at the time of this evaluation. 05/21. Patient had gone into sustained V. tach, 13 minute episode, started amiodarone, cardiology was notified on this, patient also has fever last night, 99.8, Covid test was negative on May 19, patient has sweats, no cough, incentive spirometry ordered, repeat Steven PCR, high-risk patient. Patient denies any chest pain, has palpitations, has diaphoresis and sweats, no cough yet has chills. No urinary symptoms. REVIEW OF SYSTEMS Constitutional: No fever, no chills, no night sweats. No weight change. No weakness, fatigue or lethargy. No daytime sleepiness. EENT: No headache. No blurred vision or double vision, no loss of vision. No loss of Hearing, no ringing in the ears, no dizziness. No nasal drainage or congestion. No epistaxis. No sore throat. Lungs: No shortness of breath, cough, no sputum production. No wheezing. Cardiovascular: No chest pain, no lower extremity edema. No palpitations. No paroxysmal nocturnal dyspnea. No orthopnea. No lightheadedness or dizziness. No syncopal episodes. Abdominal: No abdominal pain. No nausea, vomiting. No diarrhea. No constipation. No bloody or tarry stools.. No loss of appetite. Genitourinary: No dysuria, increased frequency, urgency. No urinary retention. Musculoskeletal: No myalgias. No muscle weakness, no gait dysfunction, no frequent falls. No back pain. No neck pain. Integumentary: No wounds, no lesions. No rash or pruritus. No unusual bruising. No change in hair or nails. Neurologic: No aphasia. No facial droop. No change in mentation. No head injury. No headache. No paralysis. No paresthesia. Psychiatric: No depression. No anxiety. No mood swings. Endocrine: No abnormal blood sugars. No weight change. No excessive sweating or thirst. No cold intolerance. Objective - Vital Signs Vital signs: Vital Signs Temp 98.9 F 05/21/20 04:00 Pulse 88 05/21/20 04:00 Resp 17 05/21/20 04:00 BP 123/70 05/21/20 04:00 Pulse Ox 98 05/21/20 00:00 Intake & Output 05/20/20 05/21/20 05/21/20 18:59 06:59 18:59 Intake Total 190 240 Output Total 480 Balance -290 240 Weight 123 kg 118 kg Intake: IV 190 .9 190 Oral 240 Output: Urine 480 Other: # Voids 2 1 - Constitutional General appearance: Present: cooperative, morbidly obese - EENT Eyes: Present: anicteric sclerae, EOMI, PERRLA, dentition normal ENT: Present: NA/AT, normal oropharynx - Neck Neck: Present: normal ROM Carotids: bilateral: upstroke normal, negative: upstroke delayed, upstroke diminished, upstroke bounding - Respiratory Respiratory: bilateral: CTA, negative: diminished, dullness, rales, rhonchi - Cardiovascular Rhythm: regular Heart sounds: normal: S1, S2 Abnormal Heart Sounds: Absent: systolic murmur, diastolic murmur, rub, S3 Gallop, S4 Gallop, click, other - Gastrointestinal General gastrointestinal: Present: normal bowel sounds, soft - Integumentary Integumentary: Present: normal - Neurologic Neurologic: Present: CNII-XII intact - Musculoskeletal Musculoskeletal: Present: gait normal, strength equal bilaterally - Psychiatric Psychiatric: Present: A&O x's 3 - Labs CBC & Chem 7: 05/21/20 08:16 05/21/20 08:16 Labs: Abnormal Lab Results - Last 24 Hours (Table) 05/21/20 05/21/20 05/21/20 Range/Units 08:16 08:16 08:16 WBC 14.9 H (3.8-10.6) k/uL Neutrophils # 10.4 H (1.3-7.7) k/uL BUN 22 H (9-20) mg/dL Glucose 158 H (74-99) mg/dL POC Glucose (mg/dL) (75-99) mg/dL Triglycerides 158 H (<150) mg/dL LDL Cholesterol, Calc 116 H (0-99) mg/dL 05/21/20 Range/Units 08:17 WBC (3.8-10.6) k/uL Neutrophils # (1.3-7.7) k/uL BUN (9-20) mg/dL Glucose (74-99) mg/dL POC Glucose (mg/dL) 143 H (75-99) mg/dL Triglycerides (<150) mg/dL LDL Cholesterol, Calc (0-99) mg/dL Assessment and Plan Plan: SSESSMENT AND PLAN 1. Acute inferior ST elevated myocardial infarction status post PCI of the dis gaby OM1 and proximal circumflex . Continue aspirin 81 mg daily, Plavix 75 mg daily, Lopressor 50 mg daily, Pravachol 80 mg at bedtime. Cardiology consult appreciated. 2. History of coronary artery disease with previous myocardial infarctions and stenting. Continue as in #1. 3. Hypertension. Continue hydrochlorothiazide/losartan daily, Lopressor. 4. Hyperlipidemia. Continue statin. 5. Objective sleep apnea unable to tolerate CPAP. 6. Remote history of tobacco use. 7. Hypothyroidism. Continue levothyroxine 175 g daily 8. GI prophylaxis. Pepcid 9. fever , rpt covid test pcr start incentive augusto Patient will be admitted to the hospital for a minimum of 2 night stay. DISCHARGE PLAN Home in 1-2 days.
[2020-05-21] MEDS ORDERED: LIDOCAINE 2% SYG (PF) 100 MG/5 ML IV ONE (17:23)
[2020-05-21] MEDS: LIDOCAINE-D5W PMX 2G/250ML 2,000 MG in DEXTROSE/WATER 1 250ML.BAG IV SCH (17:41)
[2020-05-21] MEDS ORDERED: MIDAZOLAM 1 MG/ML 5 ML VIAL IV STA (17:51)
[2020-05-21] MEDS ORDERED: MIDAZOLAM 2 MG/2 ML VIAL ONE (17:56)
[2020-05-21] MEDS ORDERED: METOPROLOL TARTRATE 50 MG TAB PO STA (18:10)
--- NOTE | 2020-05-21 18:28 | P.EN ---
A team Note: Arrived to room to find patient and ventricular tachycardia. Dr. Warren had already been contacted. Patient had received an amiodarone bolus was on amiodarone drip. He had ordered a lidocaine bolus followed by a drip. lidocaine bolus was infusing and amio had been administered and drips were currently running. We waited several minutes after lidocaine bolus completed and patient remained in ventricular tachycardia. Blood pressure was stable at 130/89. However patient was profusely diaphoretic, complaining of chest pain, and shortness of breath. We waited it several minutes to see if lidocaine bolus of the affected however he continued to deteriorate with increasing shortness of breath and diaphoresis. We moved for elective cardioversion. Patient was given 5 mg of Versed administered by myself. [place] was sent to . He was cardioverted with 200 J 1. He returned to normal sinus rhythm at 84. His blood pressure was 118/78 when checked. He was slightly lethargic secondary to the bursae but would wake up when stimulated and speaking complete sentences. Dr. Warren called and notified of synchronized cardioversion. He asked for one additional dose of metoprolol 50 to be given this evening, medications ordered. A total of 31 minutes of critical care time was spent on this patient.
[2020-05-21] MEDS: PRAVASTATIN SODIUM 80 MG TAB PO SCH (20:26)
[2020-05-21] MEDS ORDERED: METOPROLOL TARTRATE 50 MG TAB PO SCH (21:00)
[2020-05-21] MEDS ORDERED: PRAVASTATIN SODIUM 80 MG TAB PO SCH (21:00)
[2020-05-22 01:48] LABS: Glucose,Whole Blood 165 mg/dL (75-99)
[2020-05-22] MEDS ORDERED: FUROSEMIDE 10 MG/ML 4 ML VIAL ONE (01:49)
[2020-05-22] MEDS ORDERED: ALPRAZolam 0.5 MG TAB PO STA (02:18)
[2020-05-22] MEDS: AMIODARONE 300 MG in DEXTROSE 5% IN WATER 250 ML IV SCH ×6 (02:42→22:26)
--- NOTE | 2020-05-22 02:44 | XR ---
ADDENDUM - Added by Ambrocio Méndez M.D. on 05/22/2020 2:44 AM (-05:00) COMPARISON: 05/19/2020 EXAM: XR Chest, 1 View CLINICAL HISTORY: short of breath TECHNIQUE: Frontal view of the chest. COMPARISON: FINDINGS: Lungs: Mild diffuse interstitial opacities in both lungs. Pleural space: Small right pleural effusion/thickening. Left costophrenic angle is not completely included in the [id number]-yr-aizq. No pneumothorax. Heart: Unremarkable. No cardiomegaly. Mediastinum: Unremarkable. Bones/joints: ACDF. IMPRESSION: Mild CHF. Persistent small right pleural effusion
[2020-05-22] MEDS ORDERED: methylPREDNISolone SOD SUCCI 125 MG/2 ML VIAL IV SCH (03:00)
[2020-05-22 03:17] LABS: ABG Base Excess -3.9 mmol/L; ABG HCO3 23 mmol/L (21-25); ABG Oxygen Saturation 98.9 % (94-97); ABG PCO2 49 mmHg (35-45); ABG PH 7.28 (7.35-7.45); ABG PO2 >400 mmHg (83-108); ABG TCO2 24 mmol/L (19-24); Allen Test Performed? Yes
[2020-05-22 04:28] LABS: Basophils # (A) 0.1 k/uL (0-0.2); Basophils % (A) 1 %; Eosinophils # (A) 0.1 k/uL (0-0.7); Eosinophils % (A) 1 %; HCT 43.6 % (39.0-53.0); HGB 14.4 gm/dL (13.0-17.5); Lymphocytes # (A) 0.9 k/uL (1.0-4.8); Lymphocytes % (A) 6 %; MCH 32.3 pg (25.0-35.0); MCHC 33.1 g/dL (31.0-37.0); MCV 97.6 fL (80.0-100.0); Mean Platelet Volume 7.3; Monocytes # (A) 0.8 k/uL (0-1.0); Monocytes % (A) 5 %; Neutrophils # (A) 14.5 k/uL (1.3-7.7); Neutrophils % (A) 88 %; Platelet Count 264 k/uL (150-450); RBC 4.47 m/uL (4.30-5.90); RDW 13.3 % (11.5-15.5); WBC 16.5 k/uL (3.8-10.6)
[2020-05-22 04:43] LABS: Albumin 3.8 g/dL (3.5-5.0); Calcium 8.5 mg/dL (8.4-10.2); Potassium 4.3 mmol/L (3.5-5.1); Total Bilirubin 0.8 mg/dL (0.2-1.3); Total Protein 7.3 g/dL (6.3-8.2)
[2020-05-22] MEDS: LEVOTHYROXINE 100 MCG TAB PO SCH (06:23)
[2020-05-22] MEDS: LEVOTHYROXINE 75 MCG TAB PO SCH (06:23)
[2020-05-22] MEDS: CLOPIDOGREL 75 MG TAB PO SCH (08:27)
[2020-05-22] MEDS: PRAVASTATIN SODIUM 80 MG TAB PO SCH (08:27)
[2020-05-22] MEDS: METOPROLOL TARTRATE 50 MG TAB PO SCH ×2 (08:27→19:54)
[2020-05-22] MEDS: ASPIRIN 81 MG PO SCH (08:27)
[2020-05-22] MEDS: FAMOTIDINE 20 MG TAB PO SCH (08:27)
[2020-05-22] MEDS: LOSARTAN-HCTZ 50-12.5 MG 1 EACH TAB PO SCH (08:27)
[2020-05-22] MEDS: methylPREDNISolone SOD SUCCI 125 MG/2 ML VIAL IV SCH ×3 (08:28→19:55)
[2020-05-22] MEDS: LIDOCAINE-D5W PMX 2G/250ML 2,000 MG in DEXTROSE/WATER 1 250ML.BAG IV SCH ×2 (08:28→22:26)
[2020-05-22] MEDS: FUROSEMIDE 10 MG/ML 4 ML VIAL IV SCH ×2 (08:28→19:54)
[2020-05-22] MEDS: ALPRAZolam 0.25 MG TAB PO PRN (08:44)
[2020-05-22] MEDS ORDERED: NON FORMULARY DRUG (Losartan/Hydrochlorothiazide [Hyzaar 100-25 Tablet] 1 EACH Tablet) PO SCH (09:00)
[2020-05-22] MEDS ORDERED: hydroCHLOROthiazide 25 MG TAB PO SCH (09:00)
[2020-05-22] MEDS: BUDESONIDE 0.5 MG/2 ML NEBU INHALATION SCH ×2 (09:08→21:10)
[2020-05-22] MEDS: IPRATROPIUM-ALBUTEROL 3 ML NEB INHALATION SCH ×4 (09:08→21:10)
[2020-05-22] MEDS: hydrALAZINE HCL 50 MG TAB PO SCH ×3 (10:54→21:32)
[2020-05-22] MEDS: ISOSORBIDE MONONITRATE ER 60 MG TAB.ER.24H PO SCH (10:54)
--- NOTE | 2020-05-22 10:58 | ECHOF ---
Referral Reason:re: S/p STEMI MEASUREMENTS -------- HEIGHT: 162.6 cm WEIGHT: 116.1 kg BP: 133/96 IVSd: 1.4 cm (0.6 - 1.1) LVIDd: 4.8 cm (3.9 - 5.3) LVPWd: 1.6 cm (0.6 - 1.1) EDV(Teich): 106 ml IVSs: 1.6 cm LVIDs: 4.2 cm LVPWs: 1.8 cm %IVS Thck: 14 % ESV(Teich): 78 ml EF(Teich): 27 % %FS: 12 % SV(Teich): 28 ml RVIDd: 3.4 cm (< 3.3) LALs A4C: 6.5 cm LAAs A4C: 26.1 cm LAESV A-L A4C: 89 ml LAESV MOD A4C: 84 ml LALs A2C: 5.5 cm LAAs A2C: 22.0 cm LAESV A-L A2C: 75 ml LAESV MOD A2C: 73 ml LAESV(A-L): 88 ml LAESV Index (A-L): 40.74 ml/m MR Vmax: 5.21 m/s MR maxP.44 mmHg MR Vmax: 5.34 m/s MR Vmean: 4.36 m/s MR maxP.22 mmHg MR meanP.43 mmHg MR VTI: 160.9 cm LVOT Vmax: 0.67 m/s LVOT maxP.81 mmHg AV Vmax: 1.10 m/s AV maxP.86 mmHg TR Vmax: 3.99 m/s TR maxP.84 mmHg RAP: 5.00 mmHg RVSP: 68.84 mmHg FINDINGS -------- Sinus rhythm. This was a technically adequate study. The left ventricular size is normal. There is moderate concentric left ventricular hypertrophy. O verall left ventricular systolic function is severely impaired with, an EF between 25 - 30 %. Basal lateral LV wall motion is hypokinetic. Basal inferior LV wall motion is hypokinetic. Mid later al LV wall motion is hypokinetic. Mid inferior LV wall motion is hypokinetic. Apical inferior L V wall motion is hypokinetic. The right ventricle is mildly enlarged. LA is severely dilated >40 ml/m2 The right atrium was not well visualized. 5.0mg of Lumason was utilized for enhancement of images Interatrial and interventricular septum intact. The aortic valve is trileaflet, and appears structurally normal. No aortic stenosis or regurgitation. The mitral valve leaflets are mildly thickened. Xbzgqbwy-ti-xizjjs mitral regurgitation is present. Dqnk-bk-xiwbdqfs tricuspid regurgitation present. There is severe pulmonary hypertension. The rig ht ventricular systolic pressure, as measured by Doppler, is 68.84mmHg. The pulmonic valve was not well visualized. The aortic root size is normal. IVC Not well visulized. There is no pericardial effusion. CONCLUSIONS -------- 1. There is moderate concentric left ventricular hypertrophy. 2. Overall left ventricular systolic function is severely impaired with, an EF between 25 - 30 %. 3. Basal lateral LV wall motion is hypokinetic. 4. Basal inferior LV wall motion is hypokinetic. 5. Mid lateral LV wall motion is hypokinetic. 6. Mid inferior LV wall motion is hypokinetic. 7. Apical inferior LV wall motion is hypokinetic. 8. The right ventricle is mildly enlarged. 9. LA is severely dilated >40 ml/m2 10. The aortic valve is trileaflet, and appears structurally normal. No aortic stenosis or regurgitat ion. 11. The mitral valve leaflets are mildly thickened. 12. Qvnybnki-mj-rscwma mitral regurgitation is present. 13. Mjpi-kc-jddkrbvy tricuspid regurgitation present. 14. There is severe pulmonary hypertension. 15. There is no pericardial effusion. STOPER: Roula Ruelas RDCS
--- NOTE | 2020-05-22 11:05 | P.CNPUL ---
History of Present Illness Consult date: 05/22/20 Reason for consult: dyspnea, hypoxemia, obstructive sleep apnea Chief complaint: Shortness of breath History of present illness: This is a 60-year-old morbidly obese male who was seen evaluated examined on third floor currently patient is short of breath hypoxic, patient is on BiPAP 14/70-35% oxygen she is getting infusions of lidocaine drip and amiodarone drip, denies any chest pain or shortness of breath however is present, review of data revealed that patient see Dr. Sorenson for primary care activity, patient does have a history of prior [place] as well as stent placement also have a history of hypertension and hypertensive cardiovascular disease dyslipidemia has obstructive sleep apnea unable to tolerate CPAP machine, as admitted into the hospital with substernal chest pain radiating to the left side, pain did not resolve with nitroglycerin was brought into the hospital by EMS EKG revealed presence of ST segment elevation found to have acute inferior wall [place] underwent cardiac cath and angiogram found to have patent previous stent and LAD stent placement with mild disease in diagonal and mid LAD, circumflex shows 100% obstruction with 95% blockage and opt is marginal and 90% mid circumflex, patient underwent successful PCI obtuse marginal and proximal circumflex, yesterday evening patient noted to have sustained ventricular tachycardia synchronize cardioversion was performed, around 2 in the morning patient has acute onset of shortness of breath he was awake at that time, denies any chest pain, CHF-like finding were noted on x-ray with a small pleural effusion, labs reviewed white cell count 16,500 with stable hemoglobin arterial blood gases done at the incident pH was 7.28 pCO2 40 and pO2 400 on 100% oxygen, BUN/creatinine 32 and 1.69 from baseline of 22 and 1.03, AST ALT also up 476 and 190,, currently patient is undergoing an echocardiogram, cardio vascular service is also present at bedside evaluating the patient, Review of Systems All systems: negative Past Medical History Past Medical History: Chest Pain / Angina, Hyperlipidemia, Hypertension, Myocardial Infarction ([place]), Osteoarthritis (OA), Renal Disease, Sleep Apnea/CPAP/BIPAP, Thyroid Disorder Additional Past Medical History / Comment(s): no cpap used, "lung infection"2014, constipation, hemorrhoid, poor kidney funtion- 50% function Last Myocardial Infarction Date:: 05/19/2020 History of Any Multi-Drug Resistant Organisms: None Reported Past Surgical History: Heart Catheterization With Stent, Orthopedic Surgery Additional Past Surgical History / Comment(s): LEFT HIP SX -PIN PLACED-SINCE REMOVED, one cardiac stent, rt knee surgery with clamp and screw-later removed, 2 discs in neck Past Anesthesia/Blood Transfusion Reactions: No Reported Reaction Additional Past Anesthesia/Blood Transfusion Reaction / Comment(s): . Date of Last Stent Placement:: 05/19/2020 Past Psychological History: Anxiety Smoking Status: Former smoker Past Alcohol Use History: None Reported Additional Past Alcohol Use History / Comment(s): quit smoking 2007, smoked for 2 yrs, up to 4 PPD Past Drug Use History: Marijuana - Past Family History Mother Family Medical History: Deep Vein Thrombosis (DVT) Medications and Allergies Home Medications Medication Instructions Recorded Confirmed Type Levothyroxine Sodium [Synthroid] 175 mcg PO DAILY 11/29/13 05/20/20 History Clopidogrel Bisulfate [Plavix] 75 mg PO HS 02/14/18 05/20/20 History HYDROcodone/APAP 10-325MG [[place] 1 tab PO TID PRN 02/14/18 05/20/20 History 10-325] Aspirin 81 mg PO DAILY chew 02/19/18 05/20/20 Rx Nitroglycerin Sl Tabs [Nitrostat] 0.4 mg SUBLINGUAL Q5M PRN #25 tab 02/19/18 05/20/20 Rx Losartan/Hydrochlorothiazide 1 tab PO DAILY 05/20/20 05/20/20 History [Hyzaar 100-25 Tablet] Metoprolol Tartrate [Lopressor] 50 mg PO DAILY 05/20/20 05/20/20 History Pravastatin Sodium [Pravachol] 80 mg PO HS 05/20/20 05/20/20 History Allergies Allergy/AdvReac Type Severity Reaction Status Date / Time atorvastatin calcium AdvReac Swelling Verified 05/20/20 10:01 [From Lipitor] Physical Exam Vitals: Vital Signs Temp Pulse Pulse Pulse Resp BP Pulse Ox 05/22/20 09:16 84 05/22/20 09:11 80 05/22/20 08:00 97.6 F 66 20 168/94 98 05/22/20 04:00 96.0 F L 75 30 H 133/96 99 05/22/20 00:00 97.9 F 89 19 119/64 98 05/21/20 20:00 98.0 F 75 18 125/80 98 05/21/20 16:00 83 132/87 92 L 05/21/20 15:16 76 122/81 05/21/20 14:00 76 05/21/20 13:46 73 106/56 05/21/20 13:16 70 119/80 05/21/20 13:01 78 116/65 05/21/20 12:46 117/68 05/21/20 12:31 80 124/75 93 L Intake and Output 05/21/20 05/22/20 05/22/20 22:59 06:59 14:59 Intake Total 120 250 221.75 Output Total 130 Balance 120 120 221.75 Intake: Intake, IV Titration 250 221.75 Amount Amiodarone 300 mg In 250 Dextrose 5% in Water 250 ml @ 0.5 MG/MIN 25 mls/hr IV .Q10H YURY Rx#: [id number] Lidocaine-D5w Pmx 2G/ 221.75 250Ml 2,000 mg In Dextrose/Water 1 250ml. bag @ 2 MG/MIN 15 mls/hr IV .[id number] YURY Rx#: [id number] Oral 120 Output: Urine 130 Other: Voiding Method Indwelling Catheter Indwelling Catheter # Voids 1 2 0 Weight 116.5 kg - Constitutional General appearance: disheveled, morbidly obese - EENT Eyes: PERRLA ENT: hearing grossly normal Ears: bilateral: normal - Neck Carotids: bilateral: upstroke normal Thyroid: negative: normal size - Respiratory Respiratory: bilateral: diminished - Cardiovascular Rhythm: regular Heart sounds: normal: S1, S2 - Gastrointestinal General gastrointestinal: soft - Integumentary Bilateral +1 edema of lower extremities - Neurologic Neurologic: CNII-XII intact - Musculoskeletal Musculoskeletal: gait normal, generalized weakness, strength equal bilaterally - Psychiatric Psychiatric: A&O x's 3, appropriate affect, intact judgment & insight Results - Laboratory Findings CBC and BMP: 05/22/20 04:06 05/22/20 04:06 ABG ABG pH 7.28 (7.35-7.45) L 05/22/20 03:07 ABG pCO2 49 mmHg (35-45) H 05/22/20 03:07 ABG pO2 >400 mmHg (83-108) H 05/22/20 03:07 ABG O2 Saturation 98.9 % (94-97) H 05/22/20 03:07 PT/INR, D-dimer PT 9.6 sec (9.0-12.0) 05/19/20 20:40 INR 0.9 (<1.2) 05/19/20 20:40 Abnormal lab findings: Abnormal Labs 05/19/20 05/19/20 05/19/20 20:33 20:40 20:40 WBC 14.0 H Neutrophils # 11.0 H Lymphocytes # ABG pH ABG pCO2 ABG pO2 ABG O2 Saturation Sodium Carbon Dioxide BUN Creatinine Glucose 165 H POC Glucose (mg/dL) 154 H AST ALT Troponin I Triglycerides LDL Cholesterol, Calc 05/19/20 05/20/20 05/20/20 20:40 01:34 07:59 WBC 13.7 H Neutrophils # 10.1 H Lymphocytes # ABG pH ABG pCO2 ABG pO2 ABG O2 Saturation Sodium Carbon Dioxide BUN Creatinine Glucose POC Glucose (mg/dL) 139 H AST ALT Troponin I 0.140 H* Triglycerides LDL Cholesterol, Calc 05/20/20 05/21/20 05/21/20 07:59 08:16 08:16 WBC 14.9 H Neutrophils # 10.4 H Lymphocytes # ABG pH ABG pCO2 ABG pO2 ABG O2 Saturation Sodium Carbon Dioxide BUN 21 H 22 H Creatinine Glucose 156 H 158 H POC Glucose (mg/dL) AST ALT Troponin I Triglycerides LDL Cholesterol, Calc 05/21/20 05/21/20 05/22/20 08:16 08:17 01:47 WBC Neutrophils # Lymphocytes # ABG pH ABG pCO2 ABG pO2 ABG O2 Saturation Sodium Carbon Dioxide BUN Creatinine Glucose POC Glucose (mg/dL) 143 H 165 H AST ALT Troponin I Triglycerides 158 H LDL Cholesterol, Calc 116 H 05/22/20 05/22/20 05/22/20 03:07 04:06 04:06 WBC 16.5 H Neutrophils # 14.5 H Lymphocytes # 0.9 L ABG pH 7.28 L ABG pCO2 49 H ABG pO2 >400 H ABG O2 Saturation 98.9 H Sodium 135 L Carbon Dioxide 19 L BUN 32 H Creatinine 1.69 H Glucose 162 H POC Glucose (mg/dL) AST 476 H ALT 190 H Troponin I Triglycerides LDL Cholesterol, Calc - Diagnostic Findings Chest x-ray: report reviewed, image reviewed (Finding suggestive of acute pulmonary edema) Assessment and Plan Assessment: Acute hypoxic respiratory failure Acute pulmonary edema Acute systolic heart failure, echocardiogram results are pending Acute renal failure/acute kidney injury likely contrast nephropathy Acute inferior wall [place] History of diffuse coronary artery disease Plan: Continue BiPAP Gentle diuresis Follow up on echocardiogram Finding consistent with pulmonary edema and acute respiratory failure related to that we will monitor observe off of antibiotics Further recommendations pending plan of care as per clinical response of the patient Time with Patient: Greater than 30
--- NOTE | 2020-05-22 14:26 | P.EN ---
Called to patient bedside for sustained ventricular tachycardia at approximately 8:30AM on 05/21. Patient was complaining of some chest pressure similar to his prior heart attack, but not as severe. Patient was awake, mentating well, and perfusing all extremities. desk monitor pads were in place - showing monomorphic ventricular tachycardia with rate of approximately 190. The patient had just been bolused amiodarone, with plan to start a gtt. Consideration of IV lidocaine bolus was given, but while I was in the room, patient spontaneously converted to normal sinus rhythm with rate of 104. EKG was done in follow up and re-demonstrated ST Elevations, with improvement from admission EKG. Patient's pain had also resolved at this point. Cardiology team was made aware. I spent a total of 20 minutes of critical care time with this patient.
--- NOTE | 2020-05-22 14:47 | P.PN ---
Subjective Progress Note Date: 05/22/20 HISTORY OF PRESENT ILLNESS: Patient examined this morning at the bedside. Yesterday morning patient was having episodes of V. tach. He was taken back to the cardiac [facility] with findings of stable coronary artery disease with patent stents in the circumflex and also the OM branch. Patient went back into V. tach yesterday evening. He received amiodarone and also lidocaine bolus however he sustained V. tach. He underwent synchronized cardioversion by Dr. Hoyt yesterday at the bedside. Patient also developed respiratory distress over night. This morning the patient is on a BiPAP. Chest x-ray this morning reveals mild congestive heart failure and persistent small right pleural effusion. Echocardiogram reveals EF 25-30%, LV wall hypokinesis, moderate to severe mitral regurgitation, [id number] tricuspid regurgitation and severe pulmonary hypertension. The patient was started on IV Lasix 40 mg every 12 hours. PHYSICAL EXAM: VITAL SIGNS: Reviewed. GENERAL: Well-developed in no acute distress. NECK: Supple. No JVD or thyromegaly LUNGS: Respirations even and unlabored. Lungs diminished with expiratory wheezing noted. Patient on BiPAP. HEART: Regular rate and rhythm. S1 and S2 heard. Systolic murmur. EXTREMITIES: Normal range of motion. No clubbing or cyanosis. Peripheral pulses intact. Bilateral lower extremity edema noted. ASSESSMENT: STEMI, status post PCI of circumflex and OM1 CAD with prior PCI in 2013 to LAD and 2018 to circumflex Ventricular tachycardia, status post synchronized cardioversion Acute systolic congestive heart failure, EF 25-30% Acute hypoxic respiratory failure, requiring BiPAP Valvular heart disease: Moderate to severe mitral regurgitation and [id number] tricuspid regurgitation Severe pulmonary hypertension Hypertension Hyperlipidemia Obesity: BMI 44.1 Transaminitis Acute kidney injury PLAN: Pulmonary consulted. Await recommendations Continue amiodarone drip and lidocaine drip Discontinue 0.9 IV infusion Discontinue losartan secondary to ISIDRO Increase hydralazine to 50mg 3 times a day Add Imdur 60mg daily Hold statin secondary to elevated LFTs Continue IV lasix Daily weights Accurate I&O Monitor kidney function Nurse practitioner note has been reviewed by physician. Signing provider agrees with the documented findings, assessment, and plan of care. Objective - Vital Signs Vital signs: Vital Signs Temp 97.6 F 05/22/20 08:00 Pulse 74 05/22/20 12:00 Resp 19 05/22/20 12:00 BP 137/90 05/22/20 12:00 Pulse Ox 97 05/22/20 12:00 Intake & Output 05/21/20 05/22/20 05/22/20 18:59 06:59 18:59 Intake Total 630 250 711.75 Output Total 130 900 Balance 630 120 -188.25 Weight 116.5 kg Intake: IV 150 Intake, IV Titration 250 471.75 Amount Amiodarone 300 mg In 250 250 Dextrose 5% in Water 250 ml @ 0.5 MG/MIN 25 mls/hr IV .Q10H YURY Rx#: [id number] Lidocaine-D5w Pmx 2G/ 221.75 250Ml 2,000 mg In Dextrose/Water 1 250ml. bag @ 2 MG/MIN 15 mls/hr IV .[id number] YURY Rx#: [id number] Oral 480 240 Output: Urine 130 900 Other: Voiding Method Indwelling Catheter Indwelling Catheter # Voids 1 2 0 - Labs CBC & Chem 7: 05/22/20 04:06 05/22/20 04:06 Labs: Abnormal Lab Results - Last 24 Hours (Table) 05/22/20 05/22/20 05/22/20 Range/Units 01:47 03:07 04:06 WBC (3.8-10.6) k/uL Neutrophils # (1.3-7.7) k/uL Lymphocytes # (1.0-4.8) k/uL ABG pH 7.28 L (7.35-7.45) ABG pCO2 49 H (35-45) mmHg ABG pO2 >400 H (83-108) mmHg ABG O2 Saturation 98.9 H (94-97) % Sodium 135 L (137-145) mmol/L Carbon Dioxide 19 L (22-30) mmol/L BUN 32 H (9-20) mg/dL Creatinine 1.69 H (0.66-1.25) mg/dL Glucose 162 H (74-99) mg/dL POC Glucose (mg/dL) 165 H (75-99) mg/dL AST 476 H (17-59) U/L ALT 190 H (4-49) U/L 05/22/20 Range/Units 04:06 WBC 16.5 H (3.8-10.6) k/uL Neutrophils # 14.5 H (1.3-7.7) k/uL Lymphocytes # 0.9 L (1.0-4.8) k/uL ABG pH (7.35-7.45) ABG pCO2 (35-45) mmHg ABG pO2 (83-108) mmHg ABG O2 Saturation (94-97) % Sodium (137-145) mmol/L Carbon Dioxide (22-30) mmol/L BUN (9-20) mg/dL Creatinine (0.66-1.25) mg/dL Glucose (74-99) mg/dL POC Glucose (mg/dL) (75-99) mg/dL AST (17-59) U/L ALT (4-49) U/L
--- NOTE | 2020-05-22 16:34 | P.PN ---
Subjective Progress Note Date: 05/22/20 HISTORY OF PRESENT ILLNESS This is a 60-year-old male patient of Dr. Alonzo with past medical history of coronary artery disease with previous myocardial infarctions and s tenting, hypertension, hyperlipidemia, hypothyroidism, obstructive sleep apnea unable to tolerate CPAP, remote history of tobacco use. Patient gives history that after dinner he developed shortness of breath as well as chest pain that was in the midsternal area radiating to the left side along with nausea, vomiting, sweats and palpitations. He denies any radiation to his jaw or arm. He denies any syncopal episode. He states these are the same symptoms he presented with his first myocardial infarction. He took a couple nitroglycerin with minimal improvement of his chest pain and called 911 and was brought into the hospital by ambulance. Patient was found to have EKG changes with ST elev ation. He was diagnosed with acute inferior posterior [place] and immediately taken to the manager cardiac cath. He was found have a patent stent in the LAD with mild disease in the diagonal and mid LAD. Circumflex showed 100% in the proximal area, OM1 95% stenosis, 90% in the mid circumflex. Patient underwent successful PCI of the OM1 and proximal circumflex. The patient is seen today in the intensive care unit the patient has been hemodynamically stable and expected to transfer to the cardiac stepdown unit today. Patient denies any chest pain, shortness of breath, nausea or vomiting at the time of this evaluation. 05/21. Patient had gone into sustained V. tach, 13 minute episode, started amiodarone, cardiology was notified on this, patient also has fever last night, 99.8, Covid test was negative on May 19, patient has sweats, no cough, incentive spirometry ordered, repeat Steven PCR, high-risk patient. Patient denies any chest pain, has palpitations, has diaphoresis and sweats, no cough yet has chills. No urinary symptoms. 05/22: Patient had an event last night, requiring the A team he had again another episode of persistent ventricular tachycardia, while on amiodarone drip, patient was given lidocaine IV, he subsequently went into nocturnal paroxysmal dyspnea last night around 2 AM, another A team called in for these symptoms, Lasix 40 was given, however there is no urine output of only 40 mL, there is no blood pressure according to the rescue team as they were having a hard time obtaining one, however patient was alert during this episode. He was diaphoretic at that time, requested the patient be transferred to ICU, however he was subsequently stabilized, and remained on the cardiac floor. He mentions that the albuterol has helped a lot, Pulmicort started, and Solu-Medrol started. Patient was a previous smoker, quit over 5 years ago. Echocardiogram shows an EF of 25-30%, hypokinetic LV lateral wall, inferior LV wall hypokinesia, apical inferior LV wall hypokinesia, severe pulmonary hypertension, right ventricle systolic pressure of 68, consult with Dr. Cleveland pulmonary medicine chest x-ray, mild CHF with mild diffuse interstitial opacification, small pleural effusion right side, no fevers over the past 24 hours No pericardial effusion.. Start Aldactone 25 mg daily, check for PVRs, renal ultrasound for hydronephrosis REVIEW OF SYSTEMS Constitutional: No fever, no chills, no night sweats. No weight change. No weakness, fatigue or lethargy. No daytime sleepiness. EENT: No headache. No blurred vision or double vision, no loss of vision. No loss of Hearing, no ringing in the ears, no dizziness. No nasal drainage or congestion. No epistaxis. No sore throat. Lungs: No shortness of breath, cough, no sputum production. No wheezing. Cardiovascular: No chest pain, no lower extremity edema. No palpitations. No paroxysmal nocturnal dyspnea. No orthopnea. No lightheadedness or dizziness. No syncopal episodes. Abdominal: No abdominal pain. No nausea, vomiting. No diarrhea. No constipation. No bloody or tarry stools.. No loss of appetite. Genitourinary: No dysuria, increased frequency, urgency. No urinary retention. Musculoskeletal: No myalgias. No muscle weakness, no gait dysfunction, no frequent falls. No back pain. No neck pain. Integumentary: No wounds, no lesions. No rash or pruritus. No unusual bruising. No change in hair or nails. Neurologic: No aphasia. No facial droop. No change in mentation. No head injury. No headache. No paralysis. No paresthesia. Psychiatric: No depression. No anxiety. No mood swings. Endocrine: No abnormal blood sugars. No weight change. No excessive sweating or thirst. No cold intolerance. Objective - Vital Signs Vital signs: Vital Signs Temp 97.6 F 05/22/20 08:00 Pulse 84 05/22/20 09:16 Resp 20 05/22/20 08:00 BP 168/94 05/22/20 08:00 Pulse Ox 98 05/22/20 08:00 Intake & Output 05/21/20 05/22/20 05/22/20 18:59 06:59 18:59 Intake Total 630 250 221.75 Output Total 130 Balance 630 120 221.75 Weight 116.5 kg Intake: IV 150 Intake, IV Titration 250 221.75 Amount Amiodarone 300 mg In 250 Dextrose 5% in Water 250 ml @ 0.5 MG/MIN 25 mls/hr IV .Q10H YURY Rx#: [id number] Lidocaine-D5w Pmx 2G/ 221.75 250Ml 2,000 mg In Dextrose/Water 1 250ml. bag @ 2 MG/MIN 15 mls/hr IV .[id number] YURY Rx#: [id number] Oral 480 Output: Urine 130 Other: Voiding Method Indwelling Catheter Indwelling Catheter # Voids 1 2 0 - Constitutional General appearance: Present: cooperative, no acute distress - EENT Eyes: Present: anicteric sclerae, EOMI, PERRLA ENT: Present: NA/AT, normal oropharynx - Neck Neck: Present: normal ROM - Respiratory Respiratory: bilateral: diminished, rales, negative: CTA, dullness - Cardiovascular Rhythm: regular Heart sounds: normal: S1, S2 Abnormal Heart Sounds: Absent: systolic murmur, diastolic murmur, rub, S3 Dale p, S4 Gallop, click, other - Gastrointestinal General gastrointestinal: Present: normal bowel sounds, soft - Integumentary Integumentary: Present: decreased turgor, normal - Neurologic Neurologic: Present: CNII-XII intact - Musculoskeletal Musculoskeletal: Present: gait normal - Psychiatric Psychiatric: Present: A&O x's 3, appropriate affect - Labs CBC & Chem 7: 05/22/20 04:06 05/22/20 04:06 Labs: Abnormal Lab Results - Last 24 Hours (Table) 05/22/20 05/22/20 05/22/20 Range/Units 01:47 03:07 04:06 WBC (3.8-10.6) k/uL Neutrophils # (1.3-7.7) k/uL Lymphocytes # (1.0-4.8) k/uL ABG pH 7.28 L (7.35-7.45) ABG pCO2 49 H (35-45) mmHg ABG pO2 >400 H (83-108) mmHg ABG O2 Saturation 98.9 H (94-97) % Sodium 135 L (137-145) mmol/L Carbon Dioxide 19 L (22-30) mmol/L BUN 32 H (9-20) mg/dL Creatinine 1.69 H (0.66-1.25) mg/dL Glucose 162 H (74-99) mg/dL POC Glucose (mg/dL) 165 H (75-99) mg/dL AST 476 H (17-59) U/L ALT 190 H (4-49) U/L 05/22/20 Range/Units 04:06 WBC 16.5 H (3.8-10.6) k/uL Neutrophils # 14.5 H (1.3-7.7) k/uL Lymphocytes # 0.9 L (1.0-4.8) k/uL ABG pH (7.35-7.45) ABG pCO2 (35-45) mmHg ABG pO2 (83-108) mmHg ABG O2 Saturation (94-97) % Sodium (137-145) mmol/L Carbon Dioxide (22-30) mmol/L BUN (9-20) mg/dL Creatinine (0.66-1.25) mg/dL Glucose (74-99) mg/dL POC Glucose (mg/dL) (75-99) mg/dL AST (17-59) U/L ALT (4-49) U/L Assessment and Plan Plan: SSESSMENT AND PLAN 1. Acute inferior ST elevated myocardial infarction status post PCI of the distal OM1 and proximal circumflex . Continue aspirin 81 mg daily, Plavix 75 mg daily, Lopressor 50 mg daily, Pravachol 80 mg at bedtime. Cardiology consult appreciated. 2 severe systolic dysfunction with CHF exacerbation, mixed, severe pulmonary hypertension, Lasix started at 40 mg twice a day IV, with EF of 25-30% start Aldactone 25 mg daily, on metoprolol 50 twice a day and isosorbide 60 mg daily 3. Severe pulmonary hypertension, secondary, right ventricle systolic pressure of 68, IV Lasix 40 mg twice a day, patient needs to be studied as an outpatient include sleep study pulmonary is following 4 History of coronary artery disease with previous myocardial infarctions and stenting. Continue as in #1. Dr. Cleveland 5. COPD exacerbation, IV Solu-Medrol 80 mg every 6 hours, nebulized solution albuterol, and budesonide 5 Hypertension. Continue hydrochlorothiazide/losartan daily, Lopressor. 4. Hyperlipidemia. Continue statin. 5. Objective sleep apnea unable to tolerate CPAP again compliance needs to be reinforced, and this needs to be addressed for home use. 6. Remote history of tobacco use. 7. Hypothyroidism. Continue levothyroxine 175 g daily 8. GI prophylaxis. Pepcid 9. fever , rpt covid test pcr start incentive augusto 10. Acute kidney injury, secondary to suspected cardiac as dysfunction, and episode of oliguria, monitor output, with PVR Patient will be admitted to the hospital for a minimum of 2 night stay. DISCHARGE PLAN To be determined
[2020-05-22] MEDS: SENNOSIDES-DOCUSATE SODIUM 1 EACH TAB PO SCH (17:29)
[2020-05-22] MEDS: SPIRONOLACTONE 25 MG TAB PO SCH (17:29)
--- NOTE | 2020-05-22 17:58 | P.NPCON ---
History of Present Illness - Reason for Consult Consult date: 05/22/20 acute renal failure - Chief Complaint Acute kidney injury - History of Present Illness Admitted to the hospital with chest pain, STEMI had cardiac cath with stent placements. 1.0-1.2 MG per DL. He had cardiac cath done on 05/20/2020, post cardiac catheterization he was given IV fluids. He developed urinary retention and Quinonez catheter was placed. He was also on losartan. Creatinine increased to 1.6 today. Quinonez was placed and removed later on in the afternoon. Denies any nausea vomiting diarrhea. He also had episodes of V. tach's. EF of 25%. No NSAID use. Review of Systems Constitutional: Reports as per HPI Past Medical History Past Medical History: Chest Pain / Angina, Hyperlipidemia, Hypertension, Myocardial Infarction ([place]), Osteoarthritis (OA), Renal Disease, Sleep Apnea/CPAP/BIPAP, Thyroid Disorder Additional Past Medical History / Comment(s): no cpap used, "lung in fection"2014, constipation, hemorrhoid, poor kidney funtion- 50% function Last Myocardial Infarction Date:: 05/19/2020 History of Any Multi-Drug Resistant Organisms: None Reported Past Surgical History: Heart Catheterization With Stent, Orthopedic Surgery Additional Past Surgical History / Comment(s): LEFT HIP SX -PIN PLACED-SINCE REMOVED, one cardiac stent, rt knee surgery with clamp and screw-later removed, 2 discs in neck Past Anesthesia/Blood Transfusion Reactions: No Reported Reaction Additional Past Anesthesia/Blood Transfusion Reaction / Comment(s): . Date of Last Stent Placement:: 05/19/2020 Past Psychological History: Anxiety Smoking Status: Former smoker Past Alcohol Use History: None Reported Additional Past Alcohol Use History / Comment(s): quit smoking 2007, smoked for 2 yrs, up to 4 PPD Past Drug Use History: Marijuana - Past Family History Mother Family Medical History: Deep Vein Thrombosis (DVT) Medications and Allergies Home Medications Medication Instructions Recorded Confirmed Type Levothyroxine Sodium [Synthroid] 175 mcg PO DAILY 11/29/13 05/20/20 History Clopidogrel Bisulfate [Plavix] 75 mg PO HS 02/14/18 05/20/20 History HYDROcodone/APAP 10-325MG [Drake 1 tab PO TID PRN 02/14/18 05/20/20 History 10-325] Aspirin 81 mg PO DAILY chew 02/19/18 05/20/20 Rx Nitroglycerin Sl Tabs [Nitrostat] 0.4 mg SUBLINGUAL Q5M PRN #25 tab 02/19/18 05/20/20 Rx Losartan/Hydrochlorothiazide 1 tab PO DAILY 05/20/20 05/20/20 History [Hyzaar 100-25 Tablet] Metoprolol Tartrate [Lopressor] 50 mg PO DAILY 05/20/20 05/20/20 History Pravastatin Sodium [Pravachol] 80 mg PO HS 05/20/20 05/20/20 History Allergies Allergy/AdvReac Type Severity Reaction Status Date / Time atorvastatin calcium AdvReac Swelling Verified 05/20/20 10:01 [From Lipitor] Physical Exam Vitals: Vital Signs Temp Pulse Pulse Pulse Resp BP Pulse Ox 05/22/20 16:25 97.7 F 58 L 18 132/54 100 05/22/20 12:00 74 19 137/90 97 05/22/20 09:16 84 05/22/20 09:11 80 05/22/20 08:00 97.6 F 66 20 168/94 98 05/22/20 04:00 96.0 F L 75 30 H 133/96 99 05/22/20 00:00 97.9 F 89 19 119/64 98 05/21/20 20:00 98.0 F 75 18 125/80 98 Intake and Output 05/22/20 05/22/20 05/22/20 06:59 14:59 22:59 Intake Total 250 711.75 Output Total 130 900 Balance 120 -188.25 Intake: Intake, IV Titration 250 471.75 Amount Amiodarone 300 mg In 250 250 Dextrose 5% in Water 250 ml @ 0.5 MG/MIN 25 mls/hr IV .Q10H YURY Rx#: [id number] Lidocaine-D5w Pmx 2G/ 221.75 250Ml 2,000 mg In Dextrose/Water 1 250ml. bag @ 2 MG/MIN 15 mls/hr IV .[id number] YURY Rx#: [id number] Oral 240 Output: Urine 130 900 Other: Voiding Method Indwelling Catheter Indwelling Catheter # Voids 2 0 Weight 116.5 kg No acute distress S1-S2 heard Diminished breath sounds Trace edema Results - Lab Results Most recent lab results ABG pH 7.28 (7.35-7.45) L 05/22/20 03:07 ABG pCO2 49 mmHg (35-45) H 05/22/20 03:07 ABG pO2 >400 mmHg (83-108) H 05/22/20 03:07 ABG HCO3 23 mmol/L (21-25) 05/22/20 03:07 ABG O2 Saturation 98.9 % (94-97) H 05/22/20 03:07 Calcium 8.5 mg/dL (8.4-10.2) 05/22/20 04:06 Magnesium 2.0 mg/dL (1.6-2.3) 05/21/20 08:16 05/22/20 04:06 05/22/20 04:06 Assessment and Plan Assessment: #1 nonoliguric acute kidney injury multifactorial. -Contrast leading to toxic ATN -Hemodynamics with V. tach's -Urinary retention #2 CHF with systolic dysfunction EF of 20-25% #3 STEMI with recent cardiac cath #4 hypertension #5 metabolic acidosis secondary to acute kidney injury Plan: #1 agree with stopping losartan. Admits making good urine now. #2 strict ins and outs, renal ultrasound pending. Check urine analysis,fena,feurea. PVRs #3 continue with Lasix for now #4 avoid nephrotoxic agents and hypotensive episodes. #5 labs in the morning
--- NOTE | 2020-05-22 18:30 | US ---
EXAMINATION TYPE: US kidneys/renal and bladder DATE OF EXAM: 05/22/2020 COMPARISON: NONE CLINICAL HISTORY: Acute kidney failure, hydronephrosis. EXAM MEASUREMENTS: Right Kidney: 10.1 x 4.8 x 4.8 cm Left Kidney: 11.2 x 5.7 x 4.8 cm Right Kidney: No hydronephrosis or masses seen Left Kidney: No hydronephrosis or masses seen Bladder: Wall appears slightly thickened at 4mm Bilateral Jets seen: No There is no evidence for hydronephrosis at this point in time. No nephrolithiasis is seen. No darrell s are identified. The urinary bladder is anechoic. IMPRESSION: No evidence of renal mass or obstruction. Mild urinary bladder wall thickening could relate to some n onspecific cystitis. No hydronephrosis.
[2020-05-22 19:28] LABS: Appearance,Urine Clear (Clear); Bilirubin,Urine Negative (Negative); Blood,Urine Negative (Negative); Color,Urine Yellow; Glucose,Urine (UA) Negative (Negative); Ketones,Urine Negative (Negative); Leukocyte Esterase,Urine Negative (Negative); Nitrite,Urine Negative (Negative); PH, Urine 5.5 (5.0-8.0); Protein,Urine Negative (Negative); Specific Gravity,Urine 1.018 (1.001-1.035); Urobilinogen,Urine <2.0 mg/dL (<2.0)
[2020-05-22 20:07] LABS: Glucose,Whole Blood 141 mg/dL (75-99)
[2020-05-22] MEDS: INSULIN ASPART (NovoLOG) 100 UNIT/ML VIAL SQ SCH (21:31)
[2020-05-23] MEDS: methylPREDNISolone SOD SUCCI 125 MG/2 ML VIAL IV SCH ×2 (02:00→09:24)
[2020-05-23] MEDS: ALPRAZolam 0.25 MG TAB PO PRN (02:00)
[2020-05-23 06:24] LABS: Glucose,Whole Blood 149 mg/dL (75-99)
[2020-05-23] MEDS: LEVOTHYROXINE 75 MCG TAB PO SCH (06:29)
[2020-05-23] MEDS: LEVOTHYROXINE 100 MCG TAB PO SCH (06:29)
[2020-05-23] MEDS: INSULIN ASPART (NovoLOG) 100 UNIT/ML VIAL SQ SCH ×4 (06:30→21:18)
[2020-05-23] MEDS: AMIODARONE 300 MG in DEXTROSE 5% IN WATER 250 ML IV SCH ×2 (06:31)
[2020-05-23] MEDS: BUDESONIDE 0.5 MG/2 ML NEBU INHALATION SCH ×2 (07:25→19:12)
[2020-05-23] MEDS: IPRATROPIUM-ALBUTEROL 3 ML NEB INHALATION SCH ×4 (07:25→19:12)
[2020-05-23 09:14] LABS: Basophils % (A) 0 %; Eosinophils # (A) 0.1 k/uL (0-0.7); Eosinophils % (A) 1 %; HGB 13.2 gm/dL (13.0-17.5); Lymphocytes # (A) 0.7 k/uL (1.0-4.8); Lymphocytes % (A) 4 %; MCH 30.8 pg (25.0-35.0); MCV 96.2 fL (80.0-100.0); Mean Platelet Volume 7.5; Monocytes # (A) 0.6 k/uL (0-1.0); Monocytes % (A) 3 %; Neutrophils % (A) 92 %; Platelet Count 281 k/uL (150-450); RBC 4.26 m/uL (4.30-5.90); RDW 13.7 % (11.5-15.5); WBC 20.5 k/uL (3.8-10.6)
[2020-05-23] MEDS: FUROSEMIDE 10 MG/ML 4 ML VIAL IV SCH ×2 (09:24→21:18)
[2020-05-23] MEDS: hydrALAZINE HCL 50 MG TAB PO SCH ×3 (09:25→21:18)
[2020-05-23] MEDS: FAMOTIDINE 20 MG TAB PO SCH (09:25)
[2020-05-23] MEDS: METOPROLOL TARTRATE 50 MG TAB PO SCH ×2 (09:25→21:18)
[2020-05-23] MEDS: CLOPIDOGREL 75 MG TAB PO SCH (09:25)
[2020-05-23] MEDS: SPIRONOLACTONE 25 MG TAB PO SCH (09:25)
[2020-05-23] MEDS: ASPIRIN 81 MG PO SCH (09:25)
[2020-05-23] MEDS: SENNOSIDES-DOCUSATE SODIUM 1 EACH TAB PO SCH (09:25)
[2020-05-23] MEDS: ISOSORBIDE MONONITRATE ER 60 MG TAB.ER.24H PO SCH (09:25)
[2020-05-23 09:40] LABS: Albumin 3.5 g/dL (3.5-5.0); Calcium 8.4 mg/dL (8.4-10.2); Potassium 3.3 mmol/L (3.5-5.1); Total Bilirubin 0.6 mg/dL (0.2-1.3); Total Protein 6.7 g/dL (6.3-8.2)
[2020-05-23] MEDS: AMIODARONE 200 MG TAB PO SCH ×2 (11:18→21:17)
[2020-05-23] MEDS: MEXILETINE 150 MG CAP PO SCH ×2 (11:18→21:18)
--- NOTE | 2020-05-23 11:42 | P.PN ---
Subjective Progress Note Date: 05/23/20 Principal diagnosis: Acute hypoxic respiratory failure Acute pulmonary edema Acute systolic heart failure, echocardiogram results reviewed ejection fraction of 30% Status post cardioversion for sustained ventricular tachycardia Acute renal failure/acute kidney injury likely contrast nephropathy and component of prerenal Acute inferior wall OH History of diffuse coronary artery disease 05/23/2020, patient seen eval examined during the rounds labs reviewed medications reviewed, patient has been on Lasix with adequate urine output, no hemodynamic issues are present blood pressure is stable, patient remains on supplemental oxygen, FiO2 is down to 3 L, ultrasound of the abdomen has been reviewed no hydronephrosis is noted, patient remains afebrile, patient is however describing thick brownish phlegm we'll send it for Gram stain and culture we'll restart IV Rocephin patient may have component of tracheobronchitis however likely could be related to pulmonary edema and heart failure, amiodarone is oral now, patient is on Solu-Medrol 80 mg every 6 which is a hefty dose will decrease it to 40 mg IV every 12 This is a 60-year-old morbidly obese male who was seen evaluated examined on third floor currently patient is short of breath hypoxic, patient is on BiPAP 14 /70-35% oxygen she is getting infusions of lidocaine drip and amiodarone drip, denies any chest pain or shortness of breath however is present, review of data revealed that patient see Dr. Sorenson for primary care activity, patient does have a history of prior OH as well as stent placement also have a history of hypertension and hypertensive cardiovascular disease dyslipidemia has obstructive sleep apnea unable to tolerate CPAP machine, as admitted into the hospital with substernal chest pain radiating to the left side, pain did not resolve with nitroglycerin was brought into the hospital by EMS EKG revealed presence of ST segment elevation found to have acute inferior wall OH underwent cardiac cath and angiogram found to have patent previous stent and LAD stent placement with mild disease in diagonal and mid LAD, circumflex shows 100% obstruction with 95% blockage and opt is marginal and 90% mid circumflex, patient underwent successful PCI obtuse marginal and proximal circumflex, yeste rday evening patient noted to have sustained ventricular tachycardia synchronize cardioversion was performed, around 2 in the morning patient has acute onset of shortness of breath he was awake at that time, denies any chest pain, CHF-like finding were noted on x-ray with a small pleural effusion, labs reviewed white cell count 16,500 with stable hemoglobin arterial blood gases done at the incident pH was 7.28 pCO2 40 and pO2 400 on 100% oxygen, BUN/creatinine 32 and 1.69 from baseline of 22 and 1.03, AST ALT also up 476 and 190,, currently patient is undergoing an echocardiogram, cardio vascular service is also present at bedside evaluating the patient, Objective - Vital Signs Vital signs: Vital Signs Temp 97.6 F 05/23/20 03:39 Pulse 88 05/23/20 07:44 Resp 18 05/23/20 03:39 BP 109/75 05/23/20 03:39 Pulse Ox 95 05/23/20 03:39 Intake & Output 05/22/20 05/23/20 05/23/20 18:59 06:59 18:59 Intake Total 951.75 866.583 240 Output Total 1100 1600 500 Balance -148.25 -733.417 -260 Weight 119.7 kg Intake: Intake, IV Titration 471.75 626.583 Amount Amiodarone 300 mg In 250 417.083 Dextrose 5% in Water 250 ml @ 0.5 MG/MIN 25 mls/hr IV .Q10H YURY Rx#: [id number] Lidocaine-D5w Pmx 2G/ 221.75 209.5 250Ml 2,000 mg In Dextrose/Water 1 250ml. bag @ 2 MG/MIN 15 mls/hr IV .[id number] YURY Rx#: [id number] Oral 480 240 240 Output: Urine 1100 1600 500 Other: Voiding Method Indwelling Catheter Urinal # Voids 0 1 - Exam - Constitutional General appearance: disheveled, morbidly obese - EENT Eyes: PERRLA ENT: hearing grossly normal Ears: bilateral: normal - Neck Carotids: bilateral: upstroke normal Thyroid: negative: normal size - Respiratory Respiratory: bilateral: diminished - Cardiovascular Rhythm: regular Heart sounds: normal: S1, S2 - Gastrointestinal General gastrointestinal: soft - Integumentary Bilateral +1 edema of lower extremities - Neurologic Neurologic: CNII-XII intact - Musculoskeletal Musculoskeletal: gait normal, generalized weakness, strength equal bilaterally - Psychiatric Psychiatric: A&O x's 3, appropriate affect, intact judgment & insight - Labs CBC & Chem 7: 05/23/20 08:43 05/23/20 08:43 Labs: Abnormal Lab Results - Last 24 Hours (Table) 05/22/20 05/23/20 05/23/20 Range/Units 20:05 06:19 08:43 WBC 20.5 H (3.8-10.6) k/uL RBC 4.26 L (4.30-5.90) m/uL Neutrophils # 19.0 H (1.3-7.7) k/uL Lymphocytes # 0.7 L (1.0-4.8) k/uL Sodium (137-145) mmol/L Potassium (3.5-5.1) mmol/L BUN (9-20) mg/dL Creatinine (0.66-1.25) mg/dL Glucose (74-99) mg/dL POC Glucose (mg/dL) 141 H 149 H (75-99) mg/dL AST (17-59) U/L ALT (4-49) U/L 05/23/20 Range/Units 08:43 WBC (3.8-10.6) k/uL RBC (4.30-5.90) m/uL Neutrophils # (1.3-7.7) k/uL Lymphocytes # (1.0-4.8) k/uL Sodium 133 L (137-145) mmol/L Potassium 3.3 L (3.5-5.1) mmol/L BUN 41 H (9-20) mg/dL Creatinine 1.30 H (0.66-1.25) mg/dL Glucose 254 H (74-99) mg/dL POC Glucose (mg/dL) (75-99) mg/dL AST 196 H (17-59) U/L ALT 116 H (4-49) U/L Assessment and Plan Assessment: Acute hypoxic respiratory failure Acute pulmonary edema Paroxysmal sustained ventricular tachycardia status post cardioversion Tracheobronchitis Acute systolic heart failure, echocardiogram results reviewed ejection fraction of 35% Acute renal failure/acute kidney injury likely contrast nephropathy Acute inferior wall OH History of diffuse coronary artery disease Plan: Supplemental oxygen Sputum for Gram stain and culture We'll start IV Rocephin if cultures are negative then will stop it Decrease Solu-Medrol to every 12 Continue BiPAP each night Gentle diuresis Follow up on echocardiogram, reviewed ejection fraction 35% with global hypokinesia Finding consistent with pulmonary edema and acute respiratory failure related to that we will monitor on maximal cardiac therapy Further recommendations pending plan of care as per clinical response of the patient Time with Patient: Greater than 30
[2020-05-23 11:50] LABS: Glucose,Whole Blood 151 mg/dL (75-99)
[2020-05-23] MEDS ORDERED: POTASSIUM CHLORIDE ER 10 MEQ TAB.ER.PRT PO STA (13:40)
--- NOTE | 2020-05-23 14:35 | P.PN ---
Subjective Progress Note Date: 05/23/20 HISTORY OF PRESENT ILLNESS: Patient examined this morning at the bedside. Patient has been weaned off BiPAP. He is currently on a nasal cannula. Denies chest pain or pressure. No further episodes of ventricular tachycardia. Patient remains on IV Lasix. Creatinine improved today to 1.30. PHYSICAL EXAM: VITAL SIGNS: Reviewed. GENERAL: Well-developed in no acute distress. NECK: Supple. No JVD or thyromegaly LUNGS: Respirations even and unlabored. Lungs diminished with expiratory wheezing noted. HEART: Regular rate and rhythm. S1 and S2 heard. Systolic murmur. EXTREMITIES: Normal range of motion. No clubbing or cyanosis. Peripheral pulses intact. Bilateral lower extremity edema noted. ASSESSMENT: STEMI, status post PCI of circumflex and OM1 CAD with prior PCI in 2013 to LAD and 2018 to circumflex Ventricular tachycardia, status post synchronized cardioversion Acute systolic congestive heart failure, EF 25-30% Acute hypoxic respiratory failure, requiring BiPAP Valvular heart disease: Moderate to severe mitral regurgitation and [id number] tricuspid regurgitation Severe pulmonary hypertension Hypertension Hyperlipidemia Obesity: BMI 44.1 Transaminitis Acute kidney injury PLAN: Pulmonary following Discontinue lidocaine drip Discontinue amiodarone drip Begin amiodarone 400 mg by mouth twice a day Begin Mexiletine 150mg PO BID Continue additional cardiac medications Continue to hold statin secondary to LFTs Losartan remains on hold secondary to IISDRO Continue IV lasix Daily weights Accurate I&O Monitor kidney function Repeat echocardiogram on Monday Nurse practitioner note has been reviewed by physician. Signing provider agrees with the documented findings, assessment, and plan of care. Objective - Vital Signs Vital signs: Vital Signs Temp 97.6 F 05/23/20 03:39 Pulse 84 05/23/20 13:15 Resp 18 05/23/20 03:39 BP 109/75 05/23/20 03:39 Pulse Ox 95 05/23/20 03:39 Intake & Output 05/22/20 05/23/20 05/23/20 18:59 06:59 18:59 Intake Total 951.75 866.583 480 Output Total 1100 1600 500 Balance -148.25 -733.417 -20 Weight 119.7 kg Intake: Intake, IV Titration 471.75 626.583 Amount Amiodarone 300 mg In 250 417.083 Dextrose 5% in Water 250 ml @ 0.5 MG/MIN 25 mls/hr IV .Q10H Y[facility] Rx#: [id number] Lidocaine-D5w Pmx 2G/ 221.75 209.5 250Ml 2,000 mg In Dextrose/Water 1 250ml. bag @ 2 MG/MIN 15 mls/hr IV .[id number] YURY Rx#: [id number] Oral 480 240 480 Output: Urine 1100 1600 500 Other: Voiding Method Indwelling Catheter Urinal # Voids 0 1 1 - Labs CBC & Chem 7: 05/23/20 08:43 05/23/20 08:43 Labs: Abnormal Lab Results - Last 24 Hours (Table) 05/22/20 05/23/20 05/23/20 Range/Units 20:05 06:19 08:43 WBC 20.5 H (3.8-10.6) k/uL RBC 4.26 L (4.30-5.90) m/uL Neutrophils # 19.0 H (1.3-7.7) k/uL Lymphocytes # 0.7 L (1.0-4.8) k/uL Sodium (137-145) mmol/L Potassium (3.5-5.1) mmol/L BUN (9-20) mg/dL Creatinine (0.66-1.25) mg/dL Glucose (74-99) mg/dL POC Glucose (mg/dL) 141 H 149 H (75-99) mg/dL AST (17-59) U/L ALT (4-49) U/L 05/23/20 05/23/20 Range/Units 08:43 11:42 WBC (3.8-10.6) k/uL RBC (4.30-5.90) m/uL Neutrophils # (1.3-7.7) k/uL Lymphocytes # (1.0-4.8) k/uL Sodium 133 L (137-145) mmol/L Potassium 3.3 L (3.5-5.1) mmol/L BUN 41 H (9-20) mg/dL Creatinine 1.30 H (0.66-1.25) mg/dL Glucose 254 H (74-99) mg/dL POC Glucose (mg/dL) 151 H (75-99) mg/dL AST 196 H (17-59) U/L ALT 116 H (4-49) U/L
--- NOTE | 2020-05-23 14:45 | P.PN ---
Subjective Progress Note Date: 05/23/20 Follow-up for acute kidney injury. Feels better today. Denies any urinary burning or retention. Objective - Vital Signs Vital signs: Vital Signs Temp 97.6 F 05/23/20 03:39 Pulse 84 05/23/20 13:15 Resp 18 05/23/20 03:39 BP 109/75 05/23/20 03:39 Pulse Ox 95 05/23/20 03:39 Intake & Output 05/22/20 05/23/20 05/23/20 18:59 06:59 18:59 Intake Total 951.75 866.583 480 Output Total 1100 1600 500 Balance -148.25 -733.417 -20 Weight 119.7 kg Intake: Intake, IV Titration 471.75 626.583 Amount Amiodarone 300 mg In 250 417.083 Dextrose 5% in Water 250 ml @ 0.5 MG/MIN 25 mls/hr IV .Q10H Y[facility]Y Rx#: [id number] Lidocaine-D5w Pmx 2G/ 221.75 209.5 250Ml 2,000 mg In Dextrose/Water 1 250ml. bag @ 2 MG/MIN 15 mls/hr IV .[id number] YURY Rx#: [id number] Oral 480 240 480 Output: Urine 1100 1600 500 Other: Voiding Method Indwelling Catheter Urinal # Voids 0 1 1 - Exam No acute distress S1-S2 heard Diminished breath sounds Abdomen distended Trace edema - Labs CBC & Chem 7: 05/23/20 08:43 05/23/20 08:43 Labs: Abnormal Lab Results - Last 24 Hours (Table) 05/22/20 05/23/20 05/23/20 Range/Units 20:05 06:19 08:43 WBC 20.5 H (3.8-10.6) k/uL RBC 4.26 L (4.30-5.90) m/uL Neutrophils # 19.0 H (1.3-7.7) k/uL Lymphocytes # 0.7 L (1.0-4.8) k/uL Sodium (137-145) mmol/L Potassium (3.5-5.1) mmol/L BUN (9-20) mg/dL Creatinine (0.66-1.25) mg/dL Glucose (74-99) mg/dL POC Glucose (mg/dL) 141 H 149 H (75-99) mg/dL AST (17-59) U/L ALT (4-49) U/L 05/23/20 05/23/20 Range/Units 08:43 11:42 WBC (3.8-10.6) k/uL RBC (4.30-5.90) m/uL Neutrophils # (1.3-7.7) k/uL Lymphocytes # (1.0-4.8) k/uL Sodium 133 L (137-145) mmol/L Potassium 3.3 L (3.5-5.1) mmol/L BUN 41 H (9-20) mg/dL Creatinine 1.30 H (0.66-1.25) mg/dL Glucose 254 H (74-99) mg/dL POC Glucose (mg/dL) 151 H (75-99) mg/dL AST 196 H (17-59) U/L ALT 116 H (4-49) U/L Assessment and Plan Assessment: #1 nonoliguric acute kidney injury multifactorial. -Contrast leading to toxic ATN -Hemodynamics with V. tach's -Urinary retention #2 CHF with systolic dysfunction EF of 20-25% #3 STEMI with recent cardiac cath #4 hypertension #5 metabolic acidosis secondary to acute kidney injury Plan: #1 renal function improving. Continue with Lasix for now. #2 strict ins and outs, renal ultrasound no obstruction. #3 avoid nephrotoxic agents and hypotensive episodes.
--- NOTE | 2020-05-23 18:12 | P.PN ---
Subjective Progress Note Date: 05/23/20 HISTORY OF PRESENT ILLNESS This is a 60-year-old male patient of Dr. Alonzo with past medical history of coronary artery disease with previous myocardial infarctions and s tenting, hypertension, hyperlipidemia, hypothyroidism, obstructive sleep apnea unable to tolerate CPAP, remote history of tobacco use. Patient gives history that after dinner he developed shortness of breath as well as chest pain that was in the midsternal area radiating to the left side along with nausea, vomiting, sweats and palpitations. He denies any radiation to his jaw or arm. He denies any syncopal episode. He states these are the same symptoms he presented with his first myocardial infarction. He took a couple nitroglycerin with minimal improvement of his chest pain and called 911 and was brought into the hospital by ambulance. Patient was found to have EKG changes with ST elev ation. 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 He was found have a patent stent in the LAD with mild disease in the diagonal and mid LAD. Circumflex showed 100% in the proximal area, OM1 95% stenosis, 90% in the mid circumflex. Patient underwent successful PCI of the OM1 and proximal circumflex. The patient is seen today in the intensive care unit the patient has been hemodynamically stable and expected to transfer to the cardiac stepdown unit today. Patient denies any chest pain, shortness of breath, nausea or vomiting at the time of this evaluation. 05/21. Patient had gone into sustained V. tach, 13 minute episode, started amiodarone, cardiology was notified on this, patient also has fever last night, 99.8, Covid test was negative on May 19, patient has sweats, no cough, incentive spirometry ordered, repeat Steven PCR, high-risk patient. Patient denies any chest pain, has palpitations, has diaphoresis and sweats, no cough yet has chills. No urinary symptoms. 05/22: Patient had an event last night, requiring the A team he had again another episode of persistent ventricular tachycardia, while on amiodarone drip, patient was given lidocaine IV, he subsequently went into nocturnal paroxysmal dyspnea last night around 2 AM, another A team called in for these symptoms, Lasix 40 was given, however there is no urine output of only 40 mL, there is no blood pressure according to the rescue team as they were having a hard time obtaining one, however patient was alert during this episode. He was diaphoretic at that time, requested the patient be transferred to ICU, however he was subsequently stabilized, and remained on the cardiac floor. He mentions that the albuterol has helped a lot, Pulmicort started, and Solu-Medrol started. Patient was a previous smoker, quit over 5 years ago. Echocardiogram shows an EF of 25-30%, hypokinetic LV lateral wall, inferior LV wall hypokinesia, apical inferior LV wall hypokinesia, severe pulmonary hypertension, right ventricle systolic pressure of 68, consult with Dr. Cleveland pulmonary medicine chest x-ray, mild CHF with mild diffuse interstitial opacification, small pleural effusion right side, no fevers over the past 24 hours No pericardial effusion.. Start Aldactone 25 mg daily, check for PVRs, renal ultrasound for hydronephrosis 05/23:, Patient continues to improve, no paroxysmal nocturnal dyspnea last night, however patient did not sleep either. Patient has less shortness of breath, currently decreased on Solu-Medrol, nebulized treatments still scheduled 4 times a day, creatinine is improved, blood pressure systolic is around 105, heart rate in the 80s pulse ox 93% on 4 L nasal cannula creatinine are at 1.3, potassium 3.3, Replaced patient does not have any abdominal pain, no chest pain, follow-up chest x-ray to be done for opacifications of the lung, as well as pleural effusion, IV Lasix 40 mg every 12 hours. REVIEW OF SYSTEMS Constitutional: No fever, no chills, no night sweats. No weight change. No weakness, fatigue or lethargy. No daytime sleepiness. EENT: No headache. No blurred vision or double vision, no loss of vision. No loss of Hearing, no ringing in the ears, no dizziness. No nasal drainage or congestion. No epistaxis. No sore throat. Lungs: No shortness of breath, cough, no sputum production. No wheezing. Cardiovascular: No chest pain, no lower extremity edema. No palpitations. No paroxysmal nocturnal dyspnea. No orthopnea. No lightheadedness or dizziness. No syncopal episodes. Abdominal: No abdominal pain. No nausea, vomiting. No diarrhea. No constipation. No bloody or tarry stools.. No loss of appetite. Genitourinary: No dysuria, increased frequency, urgency. No urinary retention. Musculoskeletal: No myalgias. No muscle weakness, no gait dysfunction, no frequent falls. No back pain. No neck pain. Integumentary: No wounds, no lesions. No rash or pruritus. No unusual b ruising. No change in hair or nails. Neurologic: No aphasia. No facial droop. No change in mentation. No head injury. No headache. No paralysis. No paresthesia. Psychiatric: No depression. No anxiety. No mood swings. Endocrine: No abnormal blood sugars. No weight change. No excessive sweating o r thirst. No cold intolerance. Objective - Vital Signs Vital signs: Vital Signs Temp 98.5 F 05/23/20 16:00 Pulse 82 05/23/20 16:55 Resp 20 05/23/20 16:00 BP 105/73 05/23/20 16:00 Pulse Ox 93 L 05/23/20 16:00 Intake & Output 05/22/20 05/23/20 05/23/20 18:59 06:59 18:59 Intake Total 951.75 866.583 480 Output Total 1100 1600 500 Balance -148.25 -733.417 -20 Weight 119.7 kg Intake: Intake, IV Titration 471.75 626.583 Amount Amiodarone 300 mg In 250 417.083 Dextrose 5% in Water 250 ml @ 0.5 MG/MIN 25 mls/hr IV .Q10H Y[facility]Y Rx#: [id number] Lidocaine-D5w Pmx 2G/ 221.75 209.5 250Ml 2,000 mg In Dextrose/Water 1 250ml. bag @ 2 MG/MIN 15 mls/hr IV .[id number] YURY Rx#: [id number] Oral 480 240 480 Output: Urine 1100 1600 500 Other: Voiding Method Indwelling Catheter Urinal Urinal # Voids 0 1 1 - Constitutional General appearance: Present: cooperative, no acute distress - EENT Eyes: Present: EOMI, PERRLA, dentition normal, normal appearance ENT: Present: NA/AT, normal oropharynx - Neck Neck: Present: normal ROM - Respiratory Respiratory: bilateral: CTA, negative: diminished, dullness, rales - Cardiovascular Rhythm: regular Heart sounds: normal: S1, S2 Abnormal Heart Sounds: Absent: systolic murmur, diastolic murmur, rub, S3 Gallop, S4 Gallop, click, other - Gastrointestinal General gastrointestinal: Present: normal bowel sounds, soft - Integumentary Integumentary: Present: decreased turgor, normal - Neurologic Neurologic: Present: CNII-XII intact - Musculoskeletal Musculoskeletal: Present: gait normal, strength equal bilaterally - Psychiatric Psychiatric: Present: A&O x's 3, appropriate affect, intact judgment & insight - Labs CBC & Chem 7: 05/23/20 08:43 05/23/20 08:43 Labs: Abnormal Lab Results - Last 24 Hours (Table) 05/22/20 05/23/20 05/23/20 Range/Units 20:05 06:19 08:43 WBC 20.5 H (3.8-10.6) k/uL RBC 4.26 L (4.30-5.90) m/uL Neutrophils # 19.0 H (1.3-7.7) k/uL Lymphocytes # 0.7 L (1.0-4.8) k/uL Sodium (137-145) mmol/L Potassium (3.5-5.1) mmol/L BUN (9-20) mg/dL Creatinine (0.66-1.25) mg/dL Glucose (74-99) mg/dL POC Glucose (mg/dL) 141 H 149 H (75-99) mg/dL AST (17-59) U/L ALT (4-49) U/L 05/23/20 05/23/20 Range/Units 08:43 11:42 WBC (3.8-10.6) k/uL RBC (4.30-5.90) m/uL Neutrophils # (1.3-7.7) k/uL Lymphocytes # (1.0-4.8) k/uL Sodium 133 L (137-145) mmol/L Potassium 3.3 L (3.5-5.1) mmol/L BUN 41 H (9-20) mg/dL Creatinine 1.30 H (0.66-1.25) mg/dL Glucose 254 H (74-99) mg/dL POC Glucose (mg/dL) 151 H (75-99) mg/dL AST 196 H (17-59) U/L ALT 116 H (4-49) U/L Assessment and Plan Plan: SSESSMENT AND PLAN 1. Acute inferior ST elevated myocardial infarction status post PCI of the distal OM1 and proximal circumflex . Continue aspirin 81 mg daily, Plavix 75 mg daily, Lopressor 50 mg daily, Pravachol 80 mg at bedtime. Cardiology consult appreciated. 2 severe systolic dysfunction with CHF exacerbation, mixed, severe pulmonary hypertension, Lasix started at 40 mg twice a day IV, with EF of 25-30% start Aldactone 25 mg daily, on metoprolol 50 twice a day and isosorbide 60 mg daily 3. Severe pulmonary hypertension, secondary, right ventricle systolic pressure of 68, IV Lasix 40 mg twice a day, patient needs to be studied as an outpatient include sleep study pulmonary is following 4 History of coronary artery disease with previous myocardial infarctions and stenting. Continue as in #1. Dr. Cleveland 5. COPD exacerbation, IV Solu-Medrol 40 mg every 12 hours, nebulized solution albuterol, and budesonide 5 Hypertension. Continue hydrochlorothiazide/losartan daily, Lopressor. 4. Hyperlipidemia. Continue statin. 5. Objective sleep apnea unable to tolerate CPAP again compliance needs to be reinforced, and this needs to be addressed for home use. 6. Remote history of tobacco use. 7. Hypothyroidism. Continue levothyroxine 175 g daily 8. GI prophylaxis. Pepcid 9. fever , rpt covid test pcr start incentive augusto 10. Acute kidney injury, secondary to suspected cardiac as dysfunction, and episode of oliguria, monitor output, with PVR Patient will be admitted to the hospital for a minimum of 2 night stay. DISCHARGE PLAN To be determined
[2020-05-23 19:59] LABS: Glucose,Whole Blood 165 mg/dL (75-99)
[2020-05-23] MEDS: methylPREDNISolone SOD SUCCI 40 MG/ML 1 ML VIAL IV SCH (21:18)
[2020-05-23] MEDS: MELATONIN 3 MG TABLET PO SCH (21:18)
[2020-05-24 06:09] LABS: Glucose,Whole Blood 143 mg/dL (75-99)
[2020-05-24] MEDS: INSULIN ASPART (NovoLOG) 100 UNIT/ML VIAL SQ SCH ×4 (06:35→21:02)
[2020-05-24] MEDS: LEVOTHYROXINE 75 MCG TAB PO SCH (06:35)
[2020-05-24] MEDS: LEVOTHYROXINE 100 MCG TAB PO SCH (06:35)
--- NOTE | 2020-05-24 06:41 | XR ---
EXAMINATION TYPE: XR chest 2V DATE OF EXAM: 05/24/2020 COMPARISON: Chest x-ray 2 days ago and older studies. HISTORY: Pleural effusions and infiltrates. Abnormal chest x-ray. TECHNIQUE: Frontal and lateral views of the chest are obtained. FINDINGS: There is persistent mild cardiomegaly with moderate central vascular congestion and small right pleural effusion. No pneumothorax noted bilaterally. Anterior fusion plate cervical thoracic ju nction redemonstrated. IMPRESSION: Persistent CHF exacerbation as there is mild cardiomegaly with moderate central vascular congestion and central alveolar edema along with small right pleural effusion are all redemonstrated . No significant change from most recent x-ray.
[2020-05-24 08:01] LABS: Basophils % (A) 0 %; Eosinophils # (A) 0.2 k/uL (0-0.7); Eosinophils % (A) 1 %; HGB 13.6 gm/dL (13.0-17.5); Lymphocytes # (A) 0.8 k/uL (1.0-4.8); Lymphocytes % (A) 4 %; MCH 31.7 pg (25.0-35.0); MCHC 33.2 g/dL (31.0-37.0); MCV 95.4 fL (80.0-100.0); Mean Platelet Volume 7.5; Monocytes % (A) 5 %; Neutrophils # (A) 16.9 k/uL (1.3-7.7); Neutrophils % (A) 89 %; Platelet Count 286 k/uL (150-450); RDW 13.4 % (11.5-15.5)
[2020-05-24 08:13] LABS: Albumin 3.7 g/dL (3.5-5.0); Calcium 8.6 mg/dL (8.4-10.2); Potassium 3.5 mmol/L (3.5-5.1); Total Bilirubin 0.7 mg/dL (0.2-1.3); Total Protein 6.9 g/dL (6.3-8.2)
[2020-05-24] MEDS: MEXILETINE 150 MG CAP PO SCH ×2 (09:11→21:03)
[2020-05-24] MEDS: METOPROLOL TARTRATE 50 MG TAB PO SCH ×2 (09:11→21:02)
[2020-05-24] MEDS: SPIRONOLACTONE 25 MG TAB PO SCH (09:12)
[2020-05-24] MEDS: CLOPIDOGREL 75 MG TAB PO SCH (09:12)
[2020-05-24] MEDS: AMIODARONE 200 MG TAB PO SCH ×2 (09:12→21:02)
[2020-05-24] MEDS: ASPIRIN 81 MG PO SCH (09:12)
[2020-05-24] MEDS: hydrALAZINE HCL 25 MG TAB PO SCH ×3 (09:12→21:02)
[2020-05-24] MEDS: ISOSORBIDE MONONITRATE ER 60 MG TAB.ER.24H PO SCH (09:12)
[2020-05-24] MEDS: SENNOSIDES-DOCUSATE SODIUM 1 EACH TAB PO SCH (09:12)
[2020-05-24] MEDS: FAMOTIDINE 20 MG TAB PO SCH (09:12)
[2020-05-24] MEDS: FUROSEMIDE 10 MG/ML 4 ML VIAL IV SCH (09:13)
[2020-05-24] MEDS: methylPREDNISolone SOD SUCCI 40 MG/ML 1 ML VIAL IV SCH ×2 (09:13→21:01)
[2020-05-24] MEDS: BUDESONIDE 0.5 MG/2 ML NEBU INHALATION SCH ×2 (09:37→20:28)
[2020-05-24] MEDS: IPRATROPIUM-ALBUTEROL 3 ML NEB INHALATION SCH ×4 (09:37→20:28)
--- NOTE | 2020-05-24 10:56 | P.PN ---
Subjective Progress Note Date: 05/24/20 HISTORY OF PRESENT ILLNESS This is a 60-year-old male patient of Dr. Alonzo with past medical history of coronary artery disease with previous myocardial infarctions and s tenting, hypertension, hyperlipidemia, hypothyroidism, obstructive sleep apnea unable to tolerate CPAP, remote history of tobacco use. Patient gives history that after dinner he developed shortness of breath as well as chest pain that was in the midsternal area radiating to the left side along with nausea, vomiting, sweats and palpitations. He denies any radiation to his jaw or arm. He denies any syncopal episode. He states these are the same symptoms he presented with his first myocardial infarction. He took a couple nitroglycerin with minimal improvement of his chest pain and called 911 and was brought into the hospital by ambulance. Patient was found to have EKG changes with ST elev ation. He was diagnosed with acute inferior posterior CO and immediately taken to the tag and label cutter. He was found have a patent stent in the LAD with mild disease in the diagonal and mid LAD. Circumflex showed 100% in the proximal area, OM1 95% stenosis, 90% in the mid circumflex. Patient underwent successful PCI of the OM1 and proximal circumflex. The patient is seen today in the intensive care unit the patient has been hemodynamically stable and expected to transfer to the cardiac stepdown unit today. Patient denies any chest pain, shortness of breath, nausea or vomiting at the time of this evaluation. 05/21. Patient had gone into sustained V. tach, 13 minute episode, started amiodarone, cardiology was notified on this, patient also has fever last night, 99.8, Covid test was negative on May 19, patient has sweats, no cough, incentive spirometry ordered, repeat Steven PCR, high-risk patient. Patient denies any chest pain, has palpitations, has diaphoresis and sweats, no cough yet has chills. No urinary symptoms. 05/22: Patient had an event last night, requiring the A team he had again another episode of persistent ventricular tachycardia, while on amiodarone drip, patient was given lidocaine IV, he subsequently went into nocturnal paroxysmal dyspnea last night around 2 AM, another A team called in for these symptoms, Lasix 40 was given, however there is no urine output of only 40 mL, there is no blood pressure according to the rescue team as they were having a hard time obtaining one, however patient was alert during this episode. He was diaphoretic at that time, requested the patient be transferred to ICU, however he was subsequently stabilized, and remained on the cardiac floor. He mentions that the albuterol has helped a lot, Pulmicort started, and Solu-Medrol started. Patient was a previous smoker, quit over 5 years ago. Echocardiogram shows an EF of 25-30%, hypokinetic LV lateral wall, inferior LV wall hypokinesia, apical inferior LV wall hypokinesia, severe pulmonary hypertension, right ventricle systolic pressure of 68, consult with Dr. Cleveland pulmonary medicine chest x-ray, mild CHF with mild diffuse interstitial opacification, small pleural effusion right side, no fevers over the past 24 hours No pericardial effusion.. Start Aldactone 25 mg daily, check for PVRs, renal ultrasound for hydronephrosis 05/23:, Patient continues to improve, no paroxysmal nocturnal dyspnea last night, however patient did not sleep either. Patient has less shortness of breath, currently decreased on Solu-Medrol, nebulized treatments still scheduled 4 times a day, creatinine is improved, blood pressure systolic is around 105, heart rate in the 80s pulse ox 93% on 4 L nasal cannula creatinine are at 1.3, potassium 3.3, Replaced patient does not have any abdominal pain, no chest pain, follow-up chest x-ray to be done for opacifications of the lung, as well as pleural effusion, IV Lasix 40 mg every 12 hours. 05/24 patient feels lightheaded today, with orthostasis, hydralazine has been decreased to 25 mg 3 times a day systolic blood pressure of 99, chest x-ray still CHF changes, Lasix 40 every 12, need to be titrated up once blood pressures improved. Counseled on nutrition, high protein low salt diet, no chest pain, no PND last night. No fever and normal bowel movement, no new hemoptysis, chest 1 episode of hemoptysis 2 days ago. Hemoglobin stable REVIEW OF SYSTEMS Constitutional: No fever, no chills, no night sweats. No weight change. No weakness, fatigue or lethargy. No daytime sleepiness. EENT: No headache. No blurred vision or double vision, no loss of vision. No loss of Hearing, no ringing in the ears, no dizziness. No nasal drainage or congestion. No epistaxis. No sore throat. Lungs: No shortness of breath, cough, no sputum production. No wheezing. Cardiovascular: No chest pain, no lower extremity edema. No palpitations. No paroxysmal nocturnal dyspnea. No orthopnea. No lightheadedness or dizziness. No syncopal episodes. Abdominal: No abdominal pain. No nausea, vomiting. No diarrhea. No constipation. No bloody or tarry stools.. No loss of appetite. Genitourinary: No dysuria, increased frequency, urgency. No urinary retention. Musculoskeletal: No myalgias. No muscle weakness, no gait dysfunction, no frequent falls. No back pain. No neck pain. Integumentary: No wounds, no lesions. No rash or pruritus. No unusual bruising. No change in hair or nails. Neurologic: No aphasia. No facial droop. No change in mentation. No head injury. No headache. No paralysis. No paresthesia. Psychiatric: No depression. No anxiety. No mood swings. Endocrine: No abnormal blood sugars. No weight change. No excessive sweating or thirst. No cold intolerance. Objective - Vital Signs Vital signs: Vital Signs Temp 98 F 05/24/20 03:09 Pulse 84 05/24/20 09:55 Resp 18 05/24/20 03:09 BP 99/57 05/24/20 03:09 Pulse Ox 95 05/24/20 03:09 Intake & Output 05/23/20 05/24/20 05/24/20 18:59 06:59 18:59 Intake Total 702 480 360 Output Total 500 2275 Balance 202 -1795 360 Weight 119.2 kg Intake: Oral 702 480 360 Output: Urine 500 2275 Other: Voiding Method Urinal # Voids 1 1 # Bowel Movements 1 - Constitutional General appearance: Present: cooperative, no acute distress - EENT Eyes: Present: EOMI, PERRLA, dentition normal ENT: Present: NA/AT, normal oropharynx - Neck Neck: Present: normal ROM - Respiratory Respiratory: bilateral: CTA, negative: diminished, dullness, rales - Cardiovascular Rhythm: regular Abnormal Heart Sounds: Absent: systolic murmur, diastolic murmur, rub, S3 Gallop, S4 Gallop, click, other - Gastrointestinal General gastrointestinal: Present: normal bowel sounds, soft - Integumentary Integumentary: Present: decreased turgor, normal - Neurologic Neurologic: Present: CNII-XII intact - Musculoskeletal Musculoskeletal: Present: gait normal, generalized weakness - Labs CBC & Chem 7: 05/24/20 07:29 05/24/20 07:29 Labs: Abnormal Lab Results - Last 24 Hours (Table) 05/23/20 05/23/20 05/24/20 Range/Units 11:42 19:55 06:07 WBC (3.8-10.6) k/uL Neutrophils # (1.3-7.7) k/uL Lymphocytes # (1.0-4.8) k/uL Carbon Dioxide (22-30) mmol/L BUN (9-20) mg/dL Creatinine (0.66-1.25) mg/dL Glucose (74-99) mg/dL POC Glucose (mg/dL) 151 H 165 H 143 H (75-99) mg/dL AST (17-59) U/L ALT (4-49) U/L 05/24/20 05/24/20 Range/Units 07:29 07:29 WBC 19.0 H (3.8-10.6) k/uL Neutrophils # 16.9 H (1.3-7.7) k/uL Lymphocytes # 0.8 L (1.0-4.8) k/uL Carbon Dioxide 31 H (22-30) mmol/L BUN 47 H (9-20) mg/dL Creatinine 1.28 H (0.66-1.25) mg/dL Glucose 156 H (74-99) mg/dL POC Glucose (mg/dL) (75-99) mg/dL AST 109 H (17-59) U/L ALT 98 H (4-49) U/L Microbiology - Last 24 Hours (Table) 05/23/20 15:00 Gram Stain - Preliminary Sputum Sputum Culture - Preliminary Assessment and Plan Plan: SSESSMENT AND PLAN 1. Acute inferior ST elevated myocardial infarction status post PCI of the distal OM1 and proximal circumflex . Continue aspirin 81 mg daily, Plavix 75 mg daily, Lopressor 50 mg daily, Pravachol 80 mg at bedtime. Cardiology consult appreciated. Hydralazine decreased 25 mg 3 times a day secondary to marginally low blood pressure 2 severe systolic dysfunction with CHF exacerbation, mixed, severe pulmonary hypertension, Lasix started at 40 mg twice a day IV, with EF of 25-30% start Aldactone 25 mg daily, on metoprolol 50 twice a day and isosorbide 60 mg daily 3. Severe pulmonary hypertension, secondary, right ventricle systolic pressure of 68, IV Lasix 40 mg twice a day, patient needs to be studied as an outpatient include sleep study pulmonary is following 4 History of coronary artery disease with previous myocardial infarctions and stenting. Continue as in #1. Dr. Cleveland 5. COPD exacerbation, IV Solu-Medrol 40 mg every 12 hours, nebulized solution albuterol, and budesonide 5 Hypertension. Continue hydrochlorothiazide/losartan daily, Lopressor. His hydralazine to 25 3 times a day 4. Hyperlipidemia. Continue statin. 5. Objective sleep apnea unable to tolerate CPAP again compliance needs to be reinforced, and this needs to be addressed for home use. 6. Remote history of tobacco use. 7. Hypothyroidism. Continue levothyroxine 175 g daily 8. GI prophylaxis. Pepcid 9. fever , rpt covid test pcr start incentive augusto 10. Acute kidney injury, secondary to suspected cardiac as dysfunction, and episode of oliguria, monitor output, with PVR Patient will be admitted to the hospital for a minimum of 2 night stay. DISCHARGE PLAN To be determined
--- NOTE | 2020-05-24 11:47 | P.PN ---
Subjective Progress Note Date: 05/24/20 Principal diagnosis: Acute hypoxic respiratory failure Acute pulmonary edema Acute systolic heart failure, echocardiogram results reviewed ejection fraction of 30% Status post cardioversion for sustained ventricular tachycardia Acute renal failure/acute kidney injury likely contrast nephropathy and component of prerenal Acute inferior wall MT History of diffuse coronary artery disease 05/24/2020, patient seen eval examined during the rounds labs reviewed medications reviewed care plan discussed, remains afebrile denies any hemoptysis shortness of breath significant improved off of BiPAP now, white cell count improved to 19,000, BUN/creatinine also slowly coming down last check was 47.28, remains afebrile since saturation 88-90% seizure oxygen, sputum culture and Gram stain results reviewed, gram-positive bacteria bacterial predominance is seen, patient is appropriately on IV Rocephin 05/23/2020, patient seen eval examined during the rounds labs reviewed medic ations reviewed, patient has been on Lasix with adequate urine output, no hemodynamic issues are present blood pressure is stable, patient remains on supplemental oxygen, FiO2 is down to 3 L, ultrasound of the abdomen has been reviewed no hydronephrosis is noted, patient remains afebrile, patient is however describing thick brownish phlegm we'll send it for Gram stain and culture we'll restart IV Rocephin patient may have component of tracheobronchitis however likely could be related to pulmonary edema and heart failure, amiodarone is oral now, patient is on Solu-Medrol 80 mg every 6 which is a hefty dose will decrease it to 40 mg IV every 12 This is a 60-year-old morbidly obese male who was seen evaluated examined on third floor currently patient is short of breath hypoxic, patient is on BiPAP 14/70-35% oxygen she is getting infusions of lidocaine drip and amiodarone drip, denies any chest pain or shortness of breath however is present, review of data revealed that patient see Dr. Sorenson for primary care activity, patient does have a history of prior MT as well as stent placement also have a history of hypertension and hypertensive cardiovascular disease dyslipidemia has obstruc tive sleep apnea unable to tolerate CPAP machine, as admitted into the hospital with substernal chest pain radiating to the left side, pain did not resolve with nitroglycerin was brought into the hospital by EMS EKG revealed presence of ST segment elevation found to have acute inferior wall MT underwent cardiac cath and angiogram found to have patent previous stent and LAD stent placement with mild disease in diagonal and mid LAD, circumflex shows 100% obstruction with 95% blockage and opt is marginal and 90% mid circumflex, patient underwent successful PCI obtuse marginal and proximal circumflex, yesterday evening patient noted to have sustained ventricular tachycardia synchronize cardiover purnima was performed, around 2 in the morning patient has acute onset of shortness of breath he was awake at that time, denies any chest pain, CHF-like finding were noted on x-ray with a small pleural effusion, labs reviewed white cell count 16,500 with stable hemoglobin arterial blood gases done at the incident pH was 7.28 pCO2 40 and pO2 400 on 100% oxygen, BUN/creatinine 32 and 1.69 from baseline of 22 and 1.03, AST ALT also up 476 and 190,, currently patient is undergoing an echocardiogram, cardio vascular service is also present at bedside evaluating the patient, Objective - Vital Signs Vital signs: Vital Signs Temp 97.8 F 05/24/20 08:00 Pulse 84 05/24/20 09:55 Resp 20 05/24/20 08:00 BP 121/75 05/24/20 08:00 Pulse Ox 88 L 05/24/20 08:00 Intake & Output 05/23/20 05/24/20 05/24/20 18:59 06:59 18:59 Intake Total 702 480 360 Output Total 500 2275 425 Balance 202 -1795 -65 Weight 119.2 kg Intake: Oral 702 480 360 Output: Urine 500 2275 425 Other: Voiding Method Urinal Urinal # Voids 1 1 # Bowel Movements 1 - Exam - Constitutional General appearance: disheveled, morbidly obese - EENT Eyes: PERRLA ENT: hearing grossly normal Ears: bilateral: normal - Neck Carotids: bilateral: upstroke normal Thyroid: negative: normal size - Respiratory Respiratory: bilateral: diminished - Cardiovascular Rhythm: regular Heart sounds: normal: S1, S2 - Gastrointestinal General gastrointestinal: soft - Integumentary Bilateral +1 edema of lower extremities - Neurologic Neurologic: CNII-XII intact - Musculoskeletal Musculoskeletal: gait normal, generalized weakness, strength equal bilaterally - Psychiatric Psychiatric: A&O x's 3, appropriate affect, intact judgment & insight - Labs CBC & Chem 7: 05/24/20 07:29 05/24/20 07:29 Labs: Abnormal Lab Results - Last 24 Hours (Table) 05/23/20 05/23/20 05/24/20 Range/Units 11:42 19:55 06:07 WBC (3.8-10.6) k/uL Neutrophils # (1.3-7.7) k/uL Lymphocytes # (1.0-4.8) k/uL Carbon Dioxide (22-30) mmol/L BUN (9-20) mg/dL Creatinine (0.66-1.25) mg/dL Glucose (74-99) mg/dL POC Glucose (mg/dL) 151 H 165 H 143 H (75-99) mg/dL AST (17-59) U/L ALT (4-49) U/L 05/24/20 05/24/20 Range/Units 07:29 07:29 WBC 19.0 H (3.8-10.6) k/uL Neutrophils # 16.9 H (1.3-7.7) k/uL Lymphocytes # 0.8 L (1.0-4.8) k/uL Carbon Dioxide 31 H (22-30) mmol/L BUN 47 H (9-20) mg/dL Creatinine 1.28 H (0.66-1.25) mg/dL Glucose 156 H (74-99) mg/dL POC Glucose (mg/dL) (75-99) mg/dL AST 109 H (17-59) U/L ALT 98 H (4-49) U/L Microbiology - Last 24 Hours (Table) 05/23/20 15:00 Gram Stain - Preliminary Sputum Sputum Culture - Preliminary Assessment and Plan Assessment: Acute hypoxic respiratory failure Acute pulmonary edema Paroxysmal sustained ventricular tachycardia status post cardioversion Tracheobronchitis Acute systolic heart failure, echocardiogram results reviewed ejection fraction of 35% Acute renal failure/acute kidney injury likely contrast nephropathy Acute inferior wall MT History of diffuse coronary artery disease Plan: Supplemental oxygen Sputum for Gram stain and culture Continue IV Rocephin, follow up on cultures reports Continue Solu-Medrol to every 12 Continue BiPAP each night Gentle diuresis Follow up on echocardiogram, reviewed ejection fraction 35% with global hypokinesia Finding consistent with pulmonary edema and acute respiratory failure related to that we will monitor on maximal cardiac therapy Further recommendations pending plan of care as per clinical response of the patient Time with Patient: Greater than 30
[2020-05-24 12:29] LABS: Glucose,Whole Blood 127 mg/dL (75-99)
[2020-05-24 13:33] LABS: Hemoglobin A1C 5.9 % (4.0-6.0)
--- NOTE | 2020-05-24 15:08 | P.PN ---
Subjective Progress Note Date: 05/24/20 Follow-up for acute kidney injury. Feels better today. Denies any urinary burning or retention. Objective - Vital Signs Vital signs: Vital Signs Temp 97.4 F L 05/24/20 12:00 Pulse 74 05/24/20 14:00 Resp 18 05/24/20 14:00 BP 85/64 05/24/20 12:00 Pulse Ox 93 L 05/24/20 12:00 Intake & Output 05/23/20 05/24/20 05/24/20 18:59 06:59 18:59 Intake Total 702 480 720 Output Total 500 2275 425 Balance 202 -1795 295 Weight 119.2 kg Intake: Oral 702 480 720 Output: Urine 500 2275 425 Other: Voiding Method Urinal Urinal # Voids 1 1 # Bowel Movements 1 - Exam No acute distress S1-S2 heard Diminished breath sounds Abdomen distended Trace edema - Labs CBC & Chem 7: 05/24/20 07:29 05/24/20 07:29 Labs: Abnormal Lab Results - Last 24 Hours (Table) 05/23/20 05/24/20 05/24/20 Range/Units 19:55 06:07 07:29 WBC (3.8-10.6) k/uL Neutrophils # (1.3-7.7) k/uL Lymphocytes # (1.0-4.8) k/uL Carbon Dioxide 31 H (22-30) mmol/L BUN 47 H (9-20) mg/dL Creatinine 1.28 H (0.66-1.25) mg/dL Glucose 156 H (74-99) mg/dL POC Glucose (mg/dL) 165 H 143 H (75-99) mg/dL AST 109 H (17-59) U/L ALT 98 H (4-49) U/L Procalcitonin (0.02-0.09) ng/mL 05/24/20 05/24/20 05/24/20 Range/Units 07:29 07:30 12:02 WBC 19.0 H (3.8-10.6) k/uL Neutrophils # 16.9 H (1.3-7.7) k/uL Lymphocytes # 0.8 L (1.0-4.8) k/uL Carbon Dioxide (22-30) mmol/L BUN (9-20) mg/dL Creatinine (0.66-1.25) mg/dL Glucose (74-99) mg/dL POC Glucose (mg/dL) 127 H (75-99) mg/dL AST (17-59) U/L ALT (4-49) U/L Procalcitonin 0.21 H (0.02-0.09) ng/mL Microbiology - Last 24 Hours (Table) 05/23/20 15:00 Gram Stain - Preliminary Sputum Sputum Culture - Preliminary Assessment and Plan Assessment: #1 nonoliguric acute kidney injury multifactorial. -Contrast leading to toxic ATN -Hemodynamics with V. tach's -Urinary retention #2 CHF with systolic dysfunction EF of 20-25% #3 STEMI with recent cardiac cath #4 hypertension #5 metabolic alkalosis secondary to diuretics Plan: #1 renal function improving. Continue with Lasix for now. #2 strict ins and outs, renal ultrasound no obstruction. #3 avoid nephrotoxic agents and hypotensive episodes.
--- NOTE | 2020-05-24 15:13 | P.PN ---
Subjective Progress Note Date: 05/24/20 HISTORY OF PRESENT ILLNESS: Patient examined this morning at the bedside. Patient denies shortness of breath at rest. Denies chest pain or pressure. No further episodes of ventricular tachycardia. Patient remains on IV Lasix. Creatinine 1.28 PHYSICAL EXAM: VITAL SIGNS: Reviewed. GENERAL: Well-developed in no acute distress. NECK: Supple. No JVD or thyromegaly LUNGS: Respirations even and unlabored. Lungs diminished with expiratory wheezing noted. HEART: Regular rate and rhythm. S1 and S2 heard. Systolic murmur. EXTREMITIES: Normal range of motion. No clubbing or cyanosis. Peripheral pulses intact. Bilateral lower extremity edema noted-improving. ASSESSMENT: STEMI, status post PCI of circumflex and OM1 CAD with prior PCI in 2013 to LAD and 2018 to circumflex Ventricular tachycardia, status post synchronized cardioversion Acute systolic congestive heart failure, EF 25-30% Acute hypoxic respiratory failure, requiring BiPAP Valvular heart disease: Moderate to severe mitral regurgitation and [id number] tricuspid regurgitation Severe pulmonary hypertension Hypertension Hyperlipidemia Obesity: BMI 44.1 Transaminitis Acute kidney injury PLAN: Continue current cardiac medications Continue to hold statin secondary to LFTs Losartan remains on hold secondary to ISIDRO Discontinue IV Lasix. Begin oral Lasix 40 mg twice a day Daily weights Accurate I&O Monitor kidney function Repeat echocardiogram on Monday Nurse practitioner note has been reviewed by physician. Signing provider agrees with the documented findings, assessment, and plan of care. Objective - Vital Signs Vital signs: Vital Signs Temp 97.4 F L 05/24/20 12:00 Pulse 74 05/24/20 14:00 Resp 18 05/24/20 14:00 BP 85/64 05/24/20 12:00 Pulse Ox 93 L 05/24/20 12:00 Intake & Output 05/23/20 05/24/20 05/24/20 18:59 06:59 18:59 Intake Total 702 480 720 Output Total 500 2275 425 Balance 202 -1795 295 Weight 119.2 kg Intake: Oral 702 480 720 Output: Urine 500 2275 425 Other: Voiding Method Urinal Urinal # Voids 1 1 # Bowel Movements 1 - Labs CBC & Chem 7: 05/24/20 07:29 05/24/20 07:29 Labs: Abnormal Lab Results - Last 24 Hours (Table) 05/23/20 05/24/20 05/24/20 Range/Units 19:55 06:07 07:29 WBC (3.8-10.6) k/uL Neutrophils # (1.3-7.7) k/uL Lymphocytes # (1.0-4.8) k/uL Carbon Dioxide 31 H (22-30) mmol/L BUN 47 H (9-20) mg/dL Creatinine 1.28 H (0.66-1.25) mg/dL Glucose 156 H (74-99) mg/dL POC Glucose (mg/dL) 165 H 143 H (75-99) mg/dL AST 109 H (17-59) U/L ALT 98 H (4-49) U/L Procalcitonin (0.02-0.09) ng/mL 05/24/20 05/24/20 05/24/20 Range/Units 07:29 07:30 12:02 WBC 19.0 H (3.8-10.6) k/uL Neutrophils # 16.9 H (1.3-7.7) k/uL Lymphocytes # 0.8 L (1.0-4.8) k/uL Carbon Dioxide (22-30) mmol/L BUN (9-20) mg/dL Creatinine (0.66-1.25) mg/dL Glucose (74-99) mg/dL POC Glucose (mg/dL) 127 H (75-99) mg/dL AST (17-59) U/L ALT (4-49) U/L Procalcitonin 0.21 H (0.02-0.09) ng/mL Microbiology - Last 24 Hours (Table) 05/23/20 15:00 Gram Stain - Preliminary Sputum Sputum Culture - Preliminary
[2020-05-24 17:07] LABS: Glucose,Whole Blood 146 mg/dL (75-99)
[2020-05-24] MEDS: FUROSEMIDE 40 MG TAB PO SCH (17:21)
[2020-05-24 20:11] LABS: Glucose,Whole Blood 194 mg/dL (75-99)
[2020-05-24] MEDS: ALPRAZolam 0.25 MG TAB PO PRN (21:01)
[2020-05-24] MEDS: MELATONIN 3 MG TABLET PO SCH (21:02)
[2020-05-25 06:14] LABS: Glucose,Whole Blood 127 mg/dL (75-99)
[2020-05-25] MEDS: LEVOTHYROXINE 75 MCG TAB PO SCH (06:34)
[2020-05-25] MEDS: LEVOTHYROXINE 100 MCG TAB PO SCH (06:34)
[2020-05-25] MEDS: INSULIN ASPART (NovoLOG) 100 UNIT/ML VIAL SQ SCH ×4 (06:35→20:45)
[2020-05-25 08:51] LABS: Basophils # (A) 0.1 k/uL (0-0.2); Basophils % (A) 0 %; Eosinophils # (A) 0.1 k/uL (0-0.7); Eosinophils % (A) 1 %; HCT 42.7 % (39.0-53.0); Lymphocytes # (A) 0.7 k/uL (1.0-4.8); Lymphocytes % (A) 4 %; MCH 31.5 pg (25.0-35.0); MCHC 32.7 g/dL (31.0-37.0); MCV 96.1 fL (80.0-100.0); Mean Platelet Volume 7.2; Monocytes # (A) 0.8 k/uL (0-1.0); Monocytes % (A) 5 %; Neutrophils # (A) 13.7 k/uL (1.3-7.7); Neutrophils % (A) 89 %; Platelet Count 309 k/uL (150-450); RBC 4.44 m/uL (4.30-5.90); RDW 13.5 % (11.5-15.5); WBC 15.4 k/uL (3.8-10.6)
[2020-05-25 08:55] LABS: Calcium 8.7 mg/dL (8.4-10.2); Potassium 3.8 mmol/L (3.5-5.1)
[2020-05-25] MEDS: AMIODARONE 200 MG TAB PO SCH ×2 (09:08→20:44)
[2020-05-25] MEDS: methylPREDNISolone SOD SUCCI 40 MG/ML 1 ML VIAL IV SCH (09:08)
[2020-05-25] MEDS: ASPIRIN 81 MG PO SCH (09:09)
[2020-05-25] MEDS: SENNOSIDES-DOCUSATE SODIUM 1 EACH TAB PO SCH (09:09)
[2020-05-25] MEDS: MEXILETINE 150 MG CAP PO SCH ×2 (09:09→20:48)
[2020-05-25] MEDS: CLOPIDOGREL 75 MG TAB PO SCH (09:10)
[2020-05-25] MEDS: FUROSEMIDE 40 MG TAB PO SCH ×2 (09:10→18:19)
[2020-05-25] MEDS: ISOSORBIDE MONONITRATE ER 60 MG TAB.ER.24H PO SCH (09:10)
[2020-05-25] MEDS: FAMOTIDINE 20 MG TAB PO SCH (09:10)
[2020-05-25] MEDS: hydrALAZINE HCL 25 MG TAB PO SCH ×3 (09:10→20:44)
[2020-05-25] MEDS: SPIRONOLACTONE 25 MG TAB PO SCH (09:13)
[2020-05-25] MEDS: IPRATROPIUM-ALBUTEROL 3 ML NEB INHALATION SCH ×4 (09:22→21:50)
[2020-05-25] MEDS: BUDESONIDE 0.5 MG/2 ML NEBU INHALATION SCH ×2 (09:25→21:50)
[2020-05-25] MEDS: METOPROLOL TARTRATE 50 MG TAB PO SCH ×2 (09:26→20:44)
--- NOTE | 2020-05-25 11:25 | P.PN ---
Subjective Progress Note Date: 05/25/20 HISTORY OF PRESENT ILLNESS This is a 60-year-old male patient of Dr. Alonzo with past medical history of coronary artery disease with previous myocardial infarctions and s tenting, hypertension, hyperlipidemia, hypothyroidism, obstructive sleep apnea unable to tolerate CPAP, remote history of tobacco use. Patient gives history that after dinner he developed shortness of breath as well as chest pain that was in the midsternal area radiating to the left side along with nausea, vomiting, sweats and palpitations. He denies any radiation to his jaw or arm. He denies any syncopal episode. He states these are the same symptoms he presented with his first myocardial infarction. He took a couple nitroglycerin with minimal improvement of his chest pain and called 911 and was brought into the hospital by ambulance. Patient was found to have EKG changes with ST elev ation. He was diagnosed with acute inferior posterior [place] and immediately taken to the slab puller. He was found have a patent stent in the LAD with mild disease in the diagonal and mid LAD. Circumflex showed 100% in the proximal area, OM1 95% stenosis, 90% in the mid circumflex. Patient underwent successful PCI of the OM1 and proximal circumflex. The patient is seen today in the intensive care unit the patient has been hemodynamically stable and expected to transfer to the cardiac stepdown unit today. Patient denies any chest pain, shortness of breath, nausea or vomiting at the time of this evaluation. 05/21. Patient had gone into sustained V. tach, 13 minute episode, started amiodarone, cardiology was notified on this, patient also has fever last night, 99.8, Covid test was negative on May 19, patient has sweats, no cough, incentive spirometry ordered, repeat Steven PCR, high-risk patient. Patient denies any chest pain, has palpitations, has diaphoresis and sweats, no cough yet has chills. No urinary symptoms. 05/22: Patient had an event last night, requiring the A team he had again another episode of persistent ventricular tachycardia, while on amiodarone drip, patient was given lidocaine IV, he subsequently went into nocturnal paroxysmal dyspnea last night around 2 AM, another A team called in for these symptoms, Lasix 40 was given, however there is no urine output of only 40 mL, there is no blood pressure according to the rescue team as they were having a hard time obtaining one, however patient was alert during this episode. He was diaphoretic at that time, requested the patient be transferred to ICU, however he was subsequently stabilized, and remained on the cardiac floor. He mentions that the albuterol has helped a lot, Pulmicort started, and Solu-Medrol started. Patient was a previous smoker, quit over 5 years ago. Echocardiogram shows an EF of 25-30%, hypokinetic LV lateral wall, inferior LV wall hypokinesia, apical inferior LV wall hypokinesia, severe pulmonary hypertension, right ventricle systolic pressure of 68, consult with Dr. Cleveland pulmonary medicine chest x-ray, mild CHF with mild diffuse interstitial opacification, small pleural effusion right side, no fevers over the past 24 hours No pericardial effusion.. Start Aldactone 25 mg daily, check for PVRs, renal ultrasound for hydronephrosis 05/23:, Patient continues to improve, no paroxysmal nocturnal dyspnea last night, however patient did not sleep either. Patient has less shortness of breath, currently decreased on Solu-Medrol, nebulized treatments still scheduled 4 times a day, creatinine is improved, blood pressure systolic is around 105, heart rate in the 80s pulse ox 93% on 4 L nasal cannula creatinine are at 1.3, potassium 3.3, Replaced patient does not have any abdominal pain, no chest pain, follow-up chest x-ray to be done for opacifications of the lung, as well as pleural effusion, IV Lasix 40 mg every 12 hours. 05/24 patient feels lightheaded today, with orthostasis, hydralazine has been decreased to 25 mg 3 times a day systolic blood pressure of 99, chest x-ray still CHF changes, Lasix 40 every 12, need to be titrated up once blood pressures improved. Counseled on nutrition, high protein low salt diet, no chest pain, no PND last night. No fever and normal bowel movement, no new hemoptysis, chest 1 episode of hemoptysis 2 days ago. Hemoglobin stable. 05/25: Patient is found sitting in chair and appears to be comfortable. He is scheduled for repeat echocardiogram today and may be candidate for AICD. REVIEW OF SYSTEMS Constitutional: No fever, no chills, no night sweats. No weight change. No weakness, fatigue or lethargy. No daytime sleepiness. EENT: No headache. No blurred vision or double vision, no loss of vision. No loss of Hearing, no ringing in the ears, no dizziness. No nasal drainage or con gestion. No epistaxis. No sore throat. Lungs: No shortness of breath, cough, no sputum production. No wheezing. Cardiovascular: No chest pain, no lower extremity edema. No palpitations. No paroxysmal nocturnal dyspnea. No orthopnea. No lightheadedness or dizziness. No syncopal episodes. Abdominal: No abdominal pain. No nausea, vomiting. No diarrhea. No constipation. No bloody or tarry stools.. No loss of appetite. Genitourinary: No dysuria, increased frequency, urgency. No urinary retention. Musculoskeletal: No myalgias. No muscle weakness, no gait dysfunction, no frequent falls. No back pain. No neck pain. Integumentary: No wounds, no lesions. No rash or pruritus. No unusual bruising. No change in hair or nails. Neurologic: No aphasia. No facial droop. No change in mentation. No head injury. No headache. No paralysis. No paresthesia. Psychiatric: No depression. No anxiety. No mood swings. Endocrine: No abnormal blood sugars. No weight change. No excessive sweating or thirst. No cold intolerance. PHYSICAL EXAMINATION Gen: This is a 60-year-old morbidly obese male. He is resting in the ICU bed and appears to be comfortable and in no acute distress. HEENT: Head is atraumatic, normocephalic. Pupils equal, round. Sclerae is anicteric. NECK: Supple. No JVD. No lymphadenopathy. No thyromegaly. LUNGS: Clear to auscultation. No wheezes or rhonchi. No intercostal retractions. HEART: Regular rate and rhythm. No murmur. ABDOMEN: Soft. Bowel sounds are present. No masses. No tenderness. EXTREMITIES: No pedal edema. No calf tenderness. Dorsalis pedis palpable bilaterally. NEUROLOGICAL: Patient is awake, alert and oriented x3. Cranial nerves 2 through 12 are grossly intact. ASSESSMENT AND PLAN 1. Acute inferior ST elevated myocardial infarction status post PCI of the distal OM1 and proximal circumflex. Continue aspirin 81 mg daily, Plavix 75 mg daily, Lopressor 50 mg daily, Pravachol -on hold . Cardiology consult appreciated. 2. Acute systolic heart failure, EF of 25-30%, with ischemic cardiomyopathy. Continue Lasix currently oral at 40 mg twice daily, Lopressor 50 mg twice daily, Aldactone 25 mg daily. 3. Ventricular tachycardia status post denies cardioversion. Patient may require AICD. Repeat echocardiogram today. Patient is currently on amiodarone 400 mg twice daily. 4. Acute hypoxic respiratory failure requiring BiPAP, currently stable. Patient is on room air. 5. Severe pulmonary hypertension, secondary, right ventricle systolic pressure of 68. Patient needs to be studied as an outpatient include sleep study pulmonary. 6. Valvular heart disease with moderate to severe mitral regurgitation and [id number] tricuspid regurgitation. 7. History of coronary artery disease with previous myocardial infarctions and stenting. Continue as in #1. 8. COPD exacerbation. Currently on IV Solu-Medrol 40 mg every 12 hours which will be transitioned to prednisone 40 mg in the morning, continue, nebulized solution albuterol, and budesonide 9. Acute kidney injury, secondary to contrast leading to toxic ATN, episode of V. tach with hemodynamic instability, urinary retention. Nephrology consult appreciated. Continue to monitor closely, I&O, avoid nephrotoxic agents and hypotension. 10. Hypertension. Continue hydralazine 25 mg 3 times daily, Lopressor. 11. Hyperlipidemia. Statin on hold due to elevated liver function test. 12. Objective sleep apnea unable to tolerate CPAP. 13. Remote history of tobacco use. 14. Hypothyroidism. Continue levothyroxine 175 g daily 15. Transaminitis secondary to hemodynamic instability with V. tach. 16. Morbid obesity with BMI of 44. GI prophylaxis. Pepcid DISCHARGE PLAN Home in 1-2 days. Impression and plan of care have been directed as dictated by the signing physician. Monica Ho nurse practitioner acting as scribe for signing physician. Objective - Vital Signs Vital signs: Vital Signs Temp 98.2 F 05/25/20 00:00 Pulse 76 05/25/20 03:28 Resp 18 05/25/20 03:28 BP 124/86 05/25/20 03:28 Pulse Ox 96 05/25/20 03:28 Intake & Output 05/24/20 05/25/20 05/25/20 18:59 06:59 18:59 Intake Total 720 100 Output Total 675 550 Balance 45 -450 Weight 117.6 kg Intake: Oral 720 100 Output: Urine 675 550 Other: Voiding Method Urinal Urinal # Voids 1 - Labs CBC & Chem 7: 05/25/20 08:28 05/25/20 08:28 Labs: Abnormal Lab Results - Last 24 Hours (Table) 05/24/20 05/24/20 05/24/20 Range/Units 07:30 12:02 16:52 WBC (3.8-10.6) k/uL Neutrophils # (1.3-7.7) k/uL Lymphocytes # (1.0-4.8) k/uL Carbon Dioxide (22-30) mmol/L BUN (9-20) mg/dL Glucose (74-99) mg/dL POC Glucose (mg/dL) 127 H 146 H (75-99) mg/dL Procalcitonin 0.21 H (0.02-0.09) ng/mL 05/24/20 05/25/20 05/25/20 Range/Units 20:09 06:11 08:28 WBC 15.4 H (3.8-10.6) k/uL Neutrophils # 13.7 H (1.3-7.7) k/uL Lymphocytes # 0.7 L (1.0-4.8) k/uL Carbon Dioxide (22-30) mmol/L BUN (9-20) mg/dL Glucose (74-99) mg/dL POC Glucose (mg/dL) 194 H 127 H (75-99) mg/dL Procalcitonin (0.02-0.09) ng/mL 05/25/20 Range/Units 08:28 WBC (3.8-10.6) k/uL Neutrophils # (1.3-7.7) k/uL Lymphocytes # (1.0-4.8) k/uL Carbon Dioxide 32 H (22-30) mmol/L BUN 48 H (9-20) mg/dL Glucose 185 H (74-99) mg/dL POC Glucose (mg/dL) (75-99) mg/dL Procalcitonin (0.02-0.09) ng/mL
--- NOTE | 2020-05-25 11:29 | P.PN ---
Subjective Progress Note Date: 05/25/20 This is a 60-year-old gentleman who presented to the hospital with an acute inferior posterior myocardial infarction, he underwent stenting of the circumflex and OM. He has a known history of coronary artery disease with prior stenting, hypertension, hyperlipidemia. Subsequent to the procedure, patient had recurrent ventricular tachycardia with associated chest pain and for this reason was taken back to the cardiac catheterization lab by Dr. Rodriguez, he was found to have patent stents in the proximal circumflex and OM branch with moderate disease in the distal branches. Patient has had no further runs of ventricular tachycardia noted on the monitor. His LV function by echocardiogram with Doppler study showed an ejection fraction of 25%. Moderate to severe mitral regurgitation and moderate tricuspid regurgitation noted. Patient was seen and examined this morning, overall he feels well, he sitting up in the chair, he does state that with minimal exertion he feels somewhat short of breath and gets mild tightness in his chest. Dr. Rodriguez has requested that we perform a repeat echocardiogram with Doppler study, to assess his mitral regurgitation as well as his LV function. Patient may need to undergo a ALETHEA for further evaluation of his mitral valve, and he may also require implantation of an AICD. We will review his echocardiogram with Doppler study and further decisions will then be made by Dr. Rodriguez. I pressure this morning 120/60 with a heart rate of 8095% on room air. White blood cell count 15.4, hemoglobin 14, platelet count 309, sodium 138, potassium 3.8, BUN 48, creatinine 1.1. Objective - Vital Signs Vital signs: Vital Signs Temp 98.2 F 05/25/20 00:00 Pulse 88 05/25/20 09:30 Resp 18 05/25/20 08:00 BP 121/63 05/25/20 08:00 Pulse Ox 95 05/25/20 08:00 Intake & Output 05/24/20 05/25/20 05/25/20 18:59 06:59 18:59 Intake Total 720 100 Output Total 675 550 200 Balance 45 -450 -200 Weight 117.6 kg Intake: Oral 720 100 Output: Urine 675 550 200 Other: Voiding Method Urinal Urinal Urinal # Voids 1 1 - Exam PHYSICAL EXAMINATION: GENERAL: 60-year-old gentleman in no acute distress at the time of my examination HEENT: Head is atraumatic, normocephalic. Pupils equal, round. Sclera anicteric. Conjunctiva are clear. Mucous membranes of the mouth are moist. Neck is supple. There is no elevated jugular venous pressure. No carotid bruit is heard. HEART EXAMINATION: Heart S1 S2 1 systolic ejection murmur is heard CHEST EXAMINATION: Lungs reveal decreased air exchange throughout ABDOMEN: Soft, obese, nontender. Bowel sounds are heard. No organomegaly noted. EXTREMITIES: 2+ peripheral pulses with no evidence of peripheral edema and no calf tenderness noted. NEUROLOGIC patient is awake, alert and oriented 3 . - Labs CBC & Chem 7: 05/25/20 08:28 05/25/20 08:28 Labs: Abnormal Lab Results - Last 24 Hours (Table) 05/24/20 05/24/20 05/24/20 Range/Units 07:30 12:02 16:52 WBC (3.8-10.6) k/uL Neutrophils # (1.3-7.7) k/uL Lymphocytes # (1.0-4.8) k/uL Carbon Dioxide (22-30) mmol/L BUN (9-20) mg/dL Glucose (74-99) mg/dL POC Glucose (mg/dL) 127 H 146 H (75-99) mg/dL Procalcitonin 0.21 H (0.02-0.09) ng/mL 05/24/20 05/25/20 05/25/20 Range/Units 20:09 06:11 08:28 WBC 15.4 H (3.8-10.6) k/uL Neutrophils # 13.7 H (1.3-7.7) k/uL Lymphocytes # 0.7 L (1.0-4.8) k/uL Carbon Dioxide (22-30) mmol/L BUN (9-20) mg/dL Glucose (74-99) mg/dL POC Glucose (mg/dL) 194 H 127 H (75-99) mg/dL Procalcitonin (0.02-0.09) ng/mL 05/25/20 Range/Units 08:28 WBC (3.8-10.6) k/uL Neutrophils # (1.3-7.7) k/uL Lymphocytes # (1.0-4.8) k/uL Carbon Dioxide 32 H (22-30) mmol/L BUN 48 H (9-20) mg/dL Glucose 185 H (74-99) mg/dL POC Glucose (mg/dL) (75-99) mg/dL Procalcitonin (0.02-0.09) ng/mL Microbiology - Last 24 Hours (Table) 05/23/20 15:00 Gram Stain - Final Sputum Sputum Culture - Final Assessment and Plan Plan: Assessment and plan #1 acute inferior posterior myocardial infarction status post stenting of the circumflex and OM #2 sustained ventricular tachycardia status post synchronized cardioversion #3 ischemic cardiomyopathy with documented ejection fraction of 25-30% #4 moderate to severe mitral regurgitation #5 systolic congestive heart failure acute on chronic #6 severe pulmonary hypertension #7 hypertension #8 hyperlipidemia #9 obesity #10 acute kidney injury Plan We will get a repeat echocardiogram with Doppler study today to assess the LV function as well as a mitral regurgitation. Patient may need to undergo a ALETHEA to assess the valve, and may also require implantation of an AICD. Further recommendations will be made by Dr. Rodriguez once he refuses a repeat echocardiogram with Doppler study. DNP note has been reviewed, I agree with a documented findings and plan of care. Patient was seen and examined.
--- NOTE | 2020-05-25 11:55 | ECHOF ---
Referral Reason:LV FUNCTION MEASUREMENTS -------- HEIGHT: 162.6 cm WEIGHT: 117.5 kg BP: 124/86 RVIDd: 3.2 cm (< 3.3) IVSd: 1.3 cm (0.6 - 1.1) LVIDd: 4.8 cm (3.9 - 5.3) LVPWd: 1.6 cm (0.6 - 1.1) IVSs: 1.8 cm LVIDs: 3.7 cm LVPWs: 1.5 cm RAP: 5.00 mmHg RVSP: 79.65 mmHg FINDINGS -------- Sinus rhythm. Limited Study The left ventricular size is normal. There is moderate concentric left ventricular hypertrophy. O verall left ventricular systolic function is moderately impaired with, an EF between 35 - 40 %. Bas al lateral LV wall motion is hypokinetic. Basal inferior LV wall motion is hypokinetic. Basal i nferoseptal LV wall motion is hypokinetic. Mid lateral LV wall motion is hypokinetic. Mid infer ior LV wall motion is hypokinetic. Apical inferior LV wall motion is hypokinetic. Mid to basal inferiorlateral is hypokinetic The mitral valve is normal. Severe mitral regurgitation is present. The tricuspid valve appears structurally normal. [id number] tricuspid regurgitation present. There is severe pulmonary hypertension. The right ventricular systolic pressure, as measured by D samara, is 79.65mmHg. There is no pericardial effusion. CONCLUSIONS -------- 1. There is moderate concentric left ventricular hypertrophy. 2. Overall left ventricular systolic function is moderately impaired with, an EF between 35 - 40 %. 3. Basal lateral LV wall motion is hypokinetic. 4. Basal inferior LV wall motion is hypokinetic. 5. Basal inferoseptal LV wall motion is hypokinetic. 6. Mid lateral LV wall motion is hypokinetic. 7. Mid inferior LV wall motion is hypokinetic. 8. Apical inferior LV wall motion is hypokinetic. 9. Mid to basal inferiorlateral is hypokinetic 10. Severe mitral regurgitation is present. 11. [id number]-[id number] tricuspid regurgitation present. 12. There is severe pulmonary hypertension. 13. There is no pericardial effusion. DEALER SUPPORT TECHNICIAN: Simona Cormier RDCS
--- NOTE | 2020-05-25 12:22 | P.PN ---
Subjective Progress Note Date: 05/25/20 Principal diagnosis: Acute hypoxic respiratory failure Acute pulmonary edema Acute systolic heart failure, echocardiogram results reviewed ejection fraction of 30% Status post cardioversion for sustained ventricular tachycardia Acute renal failure/acute kidney injury likely contrast nephropathy and component of prerenal Acute inferior wall [place] History of diffuse coronary artery disease 05/25/2020, patient seen eval examined during the rounds labs reviewed medications reviewed care plan discussed, denies any chest pain, shortness of breath improved significantly patient had another repeat echocardiogram, culture sputum have been negative, can DC Rocephin now and DC the steroids as well 05/24/2020, patient seen eval examined during the rounds labs reviewed medicatio ns reviewed care plan discussed, remains afebrile denies any hemoptysis shortness of breath significant improved off of BiPAP now, white cell count improved to 19,000, BUN/creatinine also slowly coming down last check was 47.28, remains afebrile since saturation 88-90% seizure oxygen, sputum culture and Gram stain results reviewed, gram-positive bacteria bacterial predominance is seen, patient is appropriately on IV Rocephin 05/23/2020, patient seen eval examined during the rounds labs reviewed medications reviewed, patient has been on Lasix with adequate urine output, no hemodynamic issues are present blood pressure is stable, patient remains on supplemental oxygen, FiO2 is down to 3 L, ultrasound of the abdomen has been reviewed no hydronephrosis is noted, patient remains afebrile, patient is however describing thick brownish phlegm we'll send it for Gram stain and culture we'll restart IV Rocephin patient may have component of tracheobronchitis however likely could be related to pulmonary edema and heart failure, amiodarone is oral now, patient is on Solu-Medrol 80 mg every 6 which is a hefty dose will decrease it to 40 mg IV every 12 This is a 60-year-old morbidly obese male who was seen evaluated examined on third floor currently patient is short of breath hypoxic, patient is on BiPAP 14/70-35% oxygen she is getting infusions of lidocaine drip and amiodarone drip, denies any chest pain or shortness of breath however is present, review of data revealed that patient see Dr. Sorenson for primary care activity, patient does have a history of prior [place] as well as stent placement also have a history of hypertension and hypertensive cardiovascular disease dyslipidemia has o bstructive sleep apnea unable to tolerate CPAP machine, as admitted into the hospital with substernal chest pain radiating to the left side, pain did not resolve with nitroglycerin was brought into the hospital by EMS EKG revealed presence of ST segment elevation found to have acute inferior wall [place] underwent cardiac cath and angiogram found to have patent previous stent and LAD stent placement with mild disease in diagonal and mid LAD, circumflex shows 100% obstruction with 95% blockage and opt is marginal and 90% mid circumflex, patient underwent successful PCI obtuse marginal and proximal circumflex, yesterday evening patient noted to have sustained ventricular tachycardia synchronize cardioversion was performed, around 2 in the morning patient has acute onset of shortness of breath he was awake at that time, denies any chest pain, CHF-like finding were noted on x-ray with a small pleural effusion, labs reviewed white cell count 16,500 with stable hemoglobin arterial blood gases don e at the incident pH was 7.28 pCO2 40 and pO2 400 on 100% oxygen, BUN/creatinine 32 and 1.69 from baseline of 22 and 1.03, AST ALT also up 476 and 190,, currently patient is undergoing an echocardiogram, cardio vascular service is also present at bedside evaluating the patient, Objective - Vital Signs Vital signs: Vital Signs Temp 98.2 F 05/25/20 00:00 Pulse 80 05/25/20 12:02 Resp 18 05/25/20 08:00 BP 121/63 05/25/20 08:00 Pulse Ox 95 05/25/20 08:00 Intake & Output 05/24/20 05/25/20 05/25/20 18:59 06:59 18:59 Intake Total 720 100 240 Output Total 675 550 200 Balance 45 -450 40 Weight 117.6 kg Intake: Oral 720 100 240 Output: Urine 675 550 200 Other: Voiding Method Urinal Urinal Urinal # Voids 1 1 - Exam - Constitutional General appearance: disheveled, morbidly obese - EENT Eyes: PERRLA ENT: hearing grossly normal Ears: bilateral: normal - Neck Carotids: bilateral: upstroke normal Thyroid: negative: normal size - Respiratory Respiratory: bilateral: diminished - Cardiovascular Rhythm: regular Heart sounds: normal: S1, S2 - Gastrointestinal General gastrointestinal: soft - Integumentary Bilateral +1 edema of lower extremities - Neurologic Neurologic: CNII-XII intact - Musculoskeletal Musculoskeletal: gait normal, generalized weakness, strength equal bilaterally - Psychiatric Psychiatric: A&O x's 3, appropriate affect, intact judgment & insight - Labs CBC & Chem 7: 05/25/20 08:28 05/25/20 08:28 Labs: Abnormal Lab Results - Last 24 Hours (Table) 05/24/20 05/24/20 05/24/20 Range/Units 07:30 12:02 16:52 WBC (3.8-10.6) k/uL Neutrophils # (1.3-7.7) k/uL Lymphocytes # (1.0-4.8) k/uL Carbon Dioxide (22-30) mmol/L BUN (9-20) mg/dL Glucose (74-99) mg/dL POC Glucose (mg/dL) 127 H 146 H (75-99) mg/dL Procalcitonin 0.21 H (0.02-0.09) ng/mL 05/24/20 05/25/20 05/25/20 Range/Units 20:09 06:11 08:28 WBC 15.4 H (3.8-10.6) k/uL Neutrophils # 13.7 H (1.3-7.7) k/uL Lymphocytes # 0.7 L (1.0-4.8) k/uL Carbon Dioxide (22-30) mmol/L BUN (9-20) mg/dL Glucose (74-99) mg/dL POC Glucose (mg/dL) 194 H 127 H (75-99) mg/dL Procalcitonin (0.02-0.09) ng/mL 05/25/20 Range/Units 08:28 WBC (3.8-10.6) k/uL Neutrophils # (1.3-7.7) k/uL Lymphocytes # (1.0-4.8) k/uL Carbon Dioxide 32 H (22-30) mmol/L BUN 48 H (9-20) mg/dL Glucose 185 H (74-99) mg/dL POC Glucose (mg/dL) (75-99) mg/dL Procalcitonin (0.02-0.09) ng/mL Microbiology - Last 24 Hours (Table) 05/23/20 15:00 Gram Stain - Final Sputum Sputum Culture - Final Assessment and Plan Assessment: Acute hypoxic respiratory failure Acute pulmonary edema Paroxysmal sustained ventricular tachycardia status post cardioversion Tracheobronchitis Acute systolic heart failure, echocardiogram results reviewed ejection fraction of 35% Acute renal failure/acute kidney injury likely contrast nephropathy Acute inferior wall [place] History of diffuse coronary artery disease Plan: Supplemental oxygen gradually were tapered down Sputum for Gram stain and culture negative for Moneta organism Would DC IV Rocephin, follow up on cultures reports Would DC Solu-Medrol to every 12 Continue BiPAP each night Patient will need a sleep study on outpatient basis Gentle diuresis Follow up on echocardiogram, reviewed ejection fraction 35% with global hypokinesia Finding consistent with pulmonary edema and acute respiratory failure related to that we will monitor on maximal cardiac therapy Further recommendations pending plan of care as per clinical response of the pat ient Time with Patient: Greater than 30
[2020-05-25 12:26] LABS: Glucose,Whole Blood 106 mg/dL (75-99)
--- NOTE | 2020-05-25 15:27 | P.PN ---
Subjective Patient is seen in follow for acute kidney injury. Feels better today. He's been ambulating without any difficulty. No chest pain or shortness of breath. Vital signs are stable. General: The patient appeared well nourished and normally developed. HEENT: Head exam is unremarkable. Neck is without jugular venous distension. LUNGS: Breath sounds decreased. HEART: Rate and Rhythm are regular. ABDOMEN: Soft, nontender. EXTREMITITES: No edema. Objective - Vital Signs Vital signs: Vital Signs Temp 98.2 F 05/25/20 00:00 Pulse 80 05/25/20 12:02 Resp 18 05/25/20 08:00 BP 121/63 05/25/20 08:00 Pulse Ox 95 05/25/20 08:00 Intake & Output 05/24/20 05/25/20 05/25/20 18:59 06:59 18:59 Intake Total 720 100 240 Output Total 675 550 200 Balance 45 -450 40 Weight 117.6 kg Intake: Oral 720 100 240 Output: Urine 675 550 200 Other: Voiding Method Urinal Urinal Urinal # Voids 1 1 - Labs CBC & Chem 7: 05/25/20 08:28 05/25/20 08:28 Labs: Abnormal Lab Results - Last 24 Hours (Table) 05/24/20 05/24/20 05/25/20 Range/Units 16:52 20:09 06:11 WBC (3.8-10.6) k/uL Neutrophils # (1.3-7.7) k/uL Lymphocytes # (1.0-4.8) k/uL Carbon Dioxide (22-30) mmol/L BUN (9-20) mg/dL Glucose (74-99) mg/dL POC Glucose (mg/dL) 146 H 194 H 127 H (75-99) mg/dL 05/25/20 05/25/20 05/25/20 Range/Units 08:28 08:28 12:20 WBC 15.4 H (3.8-10.6) k/uL Neutrophils # 13.7 H (1.3-7.7) k/uL Lymphocytes # 0.7 L (1.0-4.8) k/uL Carbon Dioxide 32 H (22-30) mmol/L BUN 48 H (9-20) mg/dL Glucose 185 H (74-99) mg/dL POC Glucose (mg/dL) 106 H (75-99) mg/dL Microbiology - Last 24 Hours (Table) 05/23/20 15:00 Gram Stain - Final Sputum Sputum Culture - Final Assessment and Plan Plan: Assessment: 1. Acute kidney injury secondary to ATN secondary to hemodynamic instability as well as contrast-induced acute kidney injury. Renal function improving. Creatinine 1.19 today. 2. Systolic CHF with ejection fraction of 20-25%. 3. STEMI status post cardiac catheterization with stent placement to the circumflex and OM. 4. Moderate to severe mitral regurgitation and severe pulmonary hypertension. 5. Benign hypertension. Controlled. 6. Metabolic alkalosis secondary to diuretics as well as prednisone. Also with likely underlying chronic respiratory acidosis. Plan: Maintain Lasix for now. I advised the patient to monitor his weight closely at home and to call if gains more than 2 or 3 pounds or has worsening of edema. Avoid nephrotoxins. Follow up outpatient in the next 7-10 days.
[2020-05-25 17:50] LABS: Glucose,Whole Blood 117 mg/dL (75-99)
[2020-05-25 20:31] LABS: Glucose,Whole Blood 142 mg/dL (75-99)
[2020-05-25] MEDS: ALPRAZolam 0.25 MG TAB PO PRN (20:44)
[2020-05-25] MEDS: MELATONIN 3 MG TABLET PO SCH (20:44)
[2020-05-26 05:49] LABS: Glucose,Whole Blood 105 mg/dL (75-99)
[2020-05-26] MEDS: INSULIN ASPART (NovoLOG) 100 UNIT/ML VIAL SQ SCH ×4 (05:56→21:26)
[2020-05-26] MEDS: LEVOTHYROXINE 100 MCG TAB PO SCH (05:57)
[2020-05-26] MEDS: LEVOTHYROXINE 75 MCG TAB PO SCH (05:57)
[2020-05-26] MEDS: BUDESONIDE 0.5 MG/2 ML NEBU INHALATION SCH ×2 (07:18→19:46)
[2020-05-26] MEDS: IPRATROPIUM-ALBUTEROL 3 ML NEB INHALATION SCH ×4 (07:18→19:46)
[2020-05-26] MEDS: hydrALAZINE HCL 25 MG TAB PO SCH ×3 (08:25→21:22)
[2020-05-26] MEDS: FAMOTIDINE 20 MG TAB PO SCH (08:25)
[2020-05-26] MEDS: MEXILETINE 150 MG CAP PO SCH ×2 (08:25→21:23)
[2020-05-26] MEDS: ASPIRIN 81 MG PO SCH (08:25)
[2020-05-26] MEDS: SENNOSIDES-DOCUSATE SODIUM 1 EACH TAB PO SCH (08:25)
[2020-05-26] MEDS: METOPROLOL TARTRATE 50 MG TAB PO SCH ×2 (08:26→21:22)
[2020-05-26] MEDS: ISOSORBIDE MONONITRATE ER 60 MG TAB.ER.24H PO SCH (08:26)
[2020-05-26] MEDS: CLOPIDOGREL 75 MG TAB PO SCH (08:26)
[2020-05-26] MEDS: predniSONE 20 MG TAB PO SCH (08:26)
[2020-05-26] MEDS: FUROSEMIDE 40 MG TAB PO SCH ×2 (08:26→17:24)
[2020-05-26] MEDS: SPIRONOLACTONE 25 MG TAB PO SCH (08:27)
[2020-05-26] MEDS: AMIODARONE 200 MG TAB PO SCH ×2 (08:27→21:23)
[2020-05-26 10:01] LABS: Albumin 3.4 g/dL (3.5-5.0); Calcium 8.8 mg/dL (8.4-10.2); Total Bilirubin 0.8 mg/dL (0.2-1.3); Total Protein 6.5 g/dL (6.3-8.2)
[2020-05-26 11:50] LABS: Glucose,Whole Blood 120 mg/dL (75-99)
--- NOTE | 2020-05-26 12:22 | P.PN ---
Subjective This is a pleasant 60-year-old male past medical history significant for coronary artery disease, hypertension and dyslipidemia who presented to the hospital with an acute inferior, posterior myocardial infarction. He underwent stenting of the circumflex and OM branch. He is seen and examined sitting up in the chair in no acute distress. He states since yesterday late afternoon he has been feeling back to his baseline. He has no symptoms of chest pain, shortness of breath, dizziness or palpitations. Telemetry tracings have been unremarkable. Repeat echo reveals impaired LV systolic function with ejection fraction 35-40% with basal lateral, basal inferior and basal septal wall motion hypokinesia and severe mitral regurgitation. Blood pressure 120/72 heart rate 85 afebrile maintaining oxygen saturation on room air. Laboratory data reviewed, sodium 137, potassium 4.0, creatinine 1.31. Currently maintained on amiodarone 400 mg twice a day, aspirin 81 mg daily, Plavix 75 mg daily, Lasix 40 mg twice a day, hydralazine 25 mg 3 times a day, Imdur 60 mg daily, metoprolol 50 mg twice a day, mexiletine 150 mg twice a day and Aldactone 25 mg daily. GENERAL: Well-appearing, well-nourished and in no acute distress. NECK: Supple without JVD or thyromegaly. LUNGS: Breath sounds clear to auscultation bilaterally. Respiration equal and unlabored. No wheezes, rales or rhonchi. HEART: Regular rate and rhythm with systolic ejection murmurs, rubs or gallops. S1 and S2 heard. EXTREMITIES: Normal range of motion, no edema. No clubbing or cyanosis. Peripheral pulses intact. ASSESSMENT Acute inferior and posterior myocardial infarction status post PCI of the circumflex and OM Sustained ventricular tachycardia status post synchronized cardioversion Ischemic cardiomyopathy Acute kidney injury Moderate to severe mitral regurgitation Acute systolic heart failure Severe pulmonary hypertension Hypertension Dyslipidemia Morbid obesity, BMI 44 PLAN Recommend Life Vest be applied prior to discharge to prevent sudden cardiac . We will further assess LV function in the outpatient setting and consider AICD placement if LV function does not improve. Currently not on an REX/ARB due to renal impairment or pravasstatin secondary to elevated liver enzymes. These medications will be addressed further as an outpatient based on lab values. Further recommendations to follow based on clinical course. Nurse Practitioner note has been reviewed, I agree with a documented findings and plan of care. Patient was seen and examined. Objective - Vital Signs Vital signs: Vital Signs Temp 97.7 F 05/26/20 07:55 Pulse 85 05/26/20 11:30 Resp 16 05/26/20 11:30 BP 120/72 05/26/20 07:55 Pulse Ox 92 L 05/26/20 07:55 Intake & Output 05/25/20 05/26/20 05/26/20 18:59 06:59 18:59 Intake Total 720 720 Output Total 650 0 Balance 70 0 720 Weight 116.7 kg Intake: Oral 720 720 Output: Urine 650 0 Other: Voiding Method Urinal Urinal # Voids 1 1 # Bowel Movements 1 0 - Labs CBC & Chem 7: 05/25/20 08:28 05/26/20 08:32 Labs: Abnormal Lab Results - Last 24 Hours (Table) 05/25/20 05/25/20 05/25/20 Range/Units 12:20 17:34 20:30 BUN (9-20) mg/dL Creatinine (0.66-1.25) mg/dL Glucose (74-99) mg/dL POC Glucose (mg/dL) 106 H 117 H 142 H (75-99) mg/dL AST (17-59) U/L ALT (4-49) U/L Albumin (3.5-5.0) g/dL 05/26/20 05/26/20 05/26/20 Range/Units 05:48 08:32 11:49 BUN 46 H (9-20) mg/dL Creatinine 1.31 H (0.66-1.25) mg/dL Glucose 152 H (74-99) mg/dL POC Glucose (mg/dL) 105 H 120 H (75-99) mg/dL AST 101 H (17-59) U/L ALT 186 H (4-49) U/L Albumin 3.4 L (3.5-5.0) g/dL Microbiology - Last 24 Hours (Table) 05/23/20 15:00 Gram Stain - Final Sputum Sputum Culture - Final
--- NOTE | 2020-05-26 12:38 | P.DS ---
Providers Date of admission: 05/19/20 21:00 Expected date of discharge: 05/26/20 Attending physician: Tony Fisher Consults: 05/19/20 21:00 Consult Physician Stat Consulting Provider: Cordell Beatty Consult Reason/Comments: stemi Do you want consulting provider notified?: Already Contacted 05/19/20 23:42 Consult Physician Routine Consulting Provider: [facility] Consult Reason/Comments: Post Interventional patient Do you want consulting provider notified?: Already Contacted 05/22/20 02:16 Consult Physician Stat Consulting Provider: Maco Cleveland Consult Reason/Comments: increase oxygen demand/short of breath Do you want consulting provider notified?: Yes 05/22/20 02:17 Consult Physician Stat Consulting Provider: Deanna Flood Consult Reason/Comments: renal failure Do you want consulting provider notified?: Yes 05/22/20 06:04 Consult Physician Routine Consulting Provider: Wilmer Vance Consult Reason/Comments: acute renal failure Do you want consulting provider notified?: Yes Primary care physician: Crescencio Alonzo [facility] Course: HISTORY OF PRESENT ILLNESS This is a 60-year-old male patient of Dr. Alonoz with past medical history of coronary artery disease with previous myocardial infarctions and stenting, hypertension, hyperlipidemia, hypothyroidism, obstructive sleep apnea unable to tolerate CPAP, remote history of tobacco use. Patient gives history that after dinner he developed shortness of breath as well as chest pain that was in the midsternal area radiating to the left side along with nausea, vomiting, sweats and palpitations. He denies any radiation to his jaw or arm. He denies any syncopal episode. He states these are the same symptoms he presented with his first myocardial infarction. He took a couple nitroglycerin with minimal improvement of his chest pain and called 911 and was brought into the hospital by ambulance. Patient was found to have EKG changes with ST elevation. 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 He was found have a patent stent in the LAD with mild disease in the diagonal and mid LAD. Circumflex showed 100% in the proximal area, OM1 95% stenosis, 90% in the mid circumflex. Patient underwent successful PCI of the OM1 and proximal circumflex. The patient is seen today in the intensive care unit the patient has been hemodynamically stable and expected to transfer to the cardiac stepdown unit today. Patient denies any chest pain, shortness of breath, nausea or vomiting at the time of this evaluation. 05/21. Patient had gone into sustained V. tach, 13 minute episode, started amiodarone, cardiology was notified on this, patient also has fever last night, 99.8, Covid test was negative on May 19, patient has sweats, no cough, incentive spirometry ordered, repeat Steven PCR, high-risk patient. Patient denies any chest pain, has palpitations, has diaphoresis and sweats, no cough yet has chills. No urinary symptoms. 05/22: Patient had an event last night, requiring the A team he had again another episode of persistent ventricular tachycardia, while on amiodarone drip, patient was given lidocaine IV, he subsequently went into nocturnal paroxysmal dyspnea last night around 2 AM, another A team called in for these symptoms, Lasix 40 was given, however there is no urine output of only 40 mL, there is no blood pressure according to the rescue team as they were having a hard time obtaining one, however patient was alert during this episode. He was diaphoretic at that time, requested the patient be transferred to ICU, however he was subsequently stabilized, and remained on the cardiac floor. He mentions that the albuterol has helped a lot, Pulmicort started, and Solu-Medrol started. Patient was a previous smoker, quit over 5 years ago. Echocardiogram shows an EF of 25-30%, hypokinetic LV lateral wall, inferior LV wall hypokinesia, apical inferior LV wall hypokinesia, severe pulmonary hypertension, right ventricle systolic pressure of 68, consult with Dr. Cleveland pulmonary medicine chest x-ray, mild CHF with mild diffuse interstitial opacification, small pleural effusion right side, no fevers over the past 24 hours No pericardial effusion.. Start Aldactone 25 mg daily, check for PVRs, renal ultrasound for hydronephrosis 05/23:, Patient continues to improve, no paroxysmal nocturnal dyspnea last night, however patient did not sleep either. Patient has less shortness of breath, currently decreased on Solu-Medrol, nebulized treatments still scheduled 4 times a day, creatinine is improved, blood pressure systolic is around 105, heart rate in the 80s pulse ox 93% on 4 L nasal cannula creatinine are at 1.3, potassium 3.3, Replaced patient does not have any abdominal pain, no chest pain, follow-up chest x-ray to be done for opacifications of the lung, as well as pleural effusion, IV Lasix 40 mg every 12 hours. 05/24 patient feels lightheaded today, with orthostasis, hydralazine has been decreased to 25 mg 3 times a day systolic blood pressure of 99, chest x-ray still CHF changes, Lasix 40 every 12, need to be titrated up once blood pressures improved. Counseled on nutrition, high protein low salt diet, no chest pain, no PND last night. No fever and normal bowel movement, no new hemoptysis, chest 1 episode of hemoptysis 2 days ago. Hemoglobin stable. 05/25: Patient is found sitting in chair and appears to be comfortable. He is scheduled for repeat echocardiogram today and may be candidate for AICD. 05/26: Repeat echocardiogram reveals moderate concentric left ventricular hypertrophy with EF of 35-40%, severe mitral regurgitation, mild to moderate tricuspid regurgitation, severe pulmonary hypertension. Patient denies any chest pain, shortness of breath, lightheadedness or dizziness. He has been afebrile, heart rate 83, blood pressure 120/72, pulse ox 92% on room air. Repeat blood work reveals BUN 46 and creatinine 1.31. AST 101 and ALT 186. Pravastatin will be held at discharge due to elevated liver function tests. These will need to be rechecked in the outpatient setting and patient can be resumed on statin at a later time. Patient is to be set up with LifeVest prior to discharge. Nephrology is recommended maintaining Lasix. Patient was instructed to monitor his weight closely at home and to call nephrology if he gains more than 2 or 3 pounds or has worsening of edema. Patient will be discharged home today in stable condition. ASSESSMENT AND PLAN 1. Acute inferior ST elevated myocardial infarction status post PCI of the distal OM1 and proximal circumflex. 2. Acute systolic heart failure, EF of 25-30%, with ischemic cardiomyopathy. 3. Ventricular tachycardia secondary to acute CA status post denies cardioversion. 4. Acute hypoxic respiratory failure secondary to acute CA, requiring BiPAP, currently stable. 5. Severe pulmonary hypertension, secondary, right ventricle systolic pressure of 68. 6. Valvular heart disease with moderate to severe mitral regurgitation and [id number] tricuspid regurgitation. 7. History of coronary artery disease with previous myocardial infarctions and stenting. 8. COPD exacerbation. 9. Acute kidney injury, secondary to contrast leading to toxic ATN, episode of V. tach with hemodynamic instability, urinary retention. 10. Hypertension. 11. Hyperlipidemia. 12. Objective sleep apnea unable to tolerate CPAP. 13. Remote history of tobacco use. 14. Hypothyroidism. 15. Transaminitis secondary to hemodynamic instability with V. tach. Hold statin for now until rechecked in the office. 16. Morbid obesity with BMI of 44. DISCHARGE PLAN Home Impression and plan of care have been directed as dictated by the signing physician. Monica Ho nurse practitioner acting as scribe for signing physician. Patient Condition at Discharge: Good Plan - Discharge Summary Discharge Rx Participant: No New Discharge Prescriptions: New Spironolactone [Aldactone] 25 mg PO DAILY #30 tab hydrALAZINE HCL [Apresoline] 25 mg PO TID #90 tab Amiodarone [Cordarone] 200 mg PO BID #60 tab Isosorbide Mononitrate ER [Imdur] 60 mg PO DAILY #60 tab.er.24h Furosemide [Lasix] 40 mg PO BID@0900,1600 #60 tab Metoprolol Tartrate [Lopressor] 50 mg PO BID #60 tab Mexiletine [Mexitil] 150 mg PO Q12HR #60 cap predniSONE 0 mg PO DIRECTED #30 tab Continue Levothyroxine Sodium [Synthroid] 175 mcg PO DAILY HYDROcodone/APAP 10-325MG [Marydel 10-325] 1 tab PO TID PRN PRN Reason: Pain Clopidogrel Bisulfate [Plavix] 75 mg PO HS Aspirin 81 mg PO DAILY chew Nitroglycerin Sl Tabs [Nitrostat] 0.4 mg SUBLINGUAL Q5M PRN #25 tab PRN Reason: Chest Pain Discontinued Losartan/Hydrochlorothiazide [Hyzaar 100-25 Tablet] 1 tab PO DAILY Metoprolol Tartrate [Lopressor] 50 mg PO DAILY Pravastatin Sodium [Pravachol] 80 mg PO HS Discharge Medication List Levothyroxine Sodium [Synthroid] 175 mcg PO DAILY 11/29/13 [History] Clopidogrel Bisulfate [Plavix] 75 mg PO HS 02/14/18 [History] HYDROcodone/APAP 10-325MG [Marydel 10-325] 1 tab PO TID PRN 02/14/18 [History] Aspirin 81 mg PO DAILY chew 02/19/18 [Rx] Nitroglycerin Sl Tabs [Nitrostat] 0.4 mg SUBLINGUAL Q5M PRN #25 tab 02/19/18 [Rx] Amiodarone [Cordarone] 200 mg PO BID #60 tab 05/26/20 [Rx] Furosemide [Lasix] 40 mg PO BID@0900,1600 #60 tab 05/26/20 [Rx] Isosorbide Mononitrate ER [Imdur] 60 mg PO DAILY #60 tab.er.24h 05/26/20 [Rx] Metoprolol Tartrate [Lopressor] 50 mg PO BID #60 tab 05/26/20 [Rx] Mexiletine [Mexitil] 150 mg PO Q12HR #60 cap 05/26/20 [Rx] Spironolactone [Aldactone] 25 mg PO DAILY #30 tab 05/26/20 [Rx] hydrALAZINE HCL [Apresoline] 25 mg PO TID #90 tab 05/26/20 [Rx] predniSONE 0 mg PO DIRECTED #30 tab 05/26/20 [Rx] Follow up Appointment(s)/Referral(s): Maco Cleveland MD [STAFF PHYSICIAN] - 1 Week Crescencio Alonzo MD [Primary Care Provider] - 1 Week Suzi Rodrigez MD [STAFF PHYSICIAN] - 1 Week Discharge Disposition: HOME SELF-CARE
--- NOTE | 2020-05-26 13:07 | P.PN ---
Subjective Patient is seen in follow for acute kidney injury. No active complaints. Good urine output. No chest pain or shortness of breath. Blood pressure stable. Vital signs are stable. General: The patient appeared well nourished and normally developed. HEENT: Head exam is unremarkable. Neck is without jugular venous distension. LUNGS: Breath sounds decreased. HEART: Rate and Rhythm are regular. ABDOMEN: Soft, nontender. EXTREMITITES: No edema. Objective - Vital Signs Vital signs: Vital Signs Temp 97.7 F 05/26/20 07:55 Pulse 85 05/26/20 11:30 Resp 16 05/26/20 11:30 BP 120/72 05/26/20 07:55 Pulse Ox 92 L 05/26/20 07:55 Intake & Output 05/25/20 05/26/20 05/26/20 18:59 06:59 18:59 Intake Total 720 720 Output Total 650 0 Balance 70 0 720 Weight 116.7 kg Intake: Oral 720 720 Output: Urine 650 0 Other: Voiding Method Urinal Urinal # Voids 1 1 # Bowel Movements 1 0 - Labs CBC & Chem 7: 05/25/20 08:28 05/26/20 08:32 Labs: Abnormal Lab Results - Last 24 Hours (Table) 05/25/20 05/25/20 05/26/20 Range/Units 17:34 20:30 05:48 BUN (9-20) mg/dL Creatinine (0.66-1.25) mg/dL Glucose (74-99) mg/dL POC Glucose (mg/dL) 117 H 142 H 105 H (75-99) mg/dL AST (17-59) U/L ALT (4-49) U/L Albumin (3.5-5.0) g/dL 05/26/20 05/26/20 Range/Units 08:32 11:49 BUN 46 H (9-20) mg/dL Creatinine 1.31 H (0.66-1.25) mg/dL Glucose 152 H (74-99) mg/dL POC Glucose (mg/dL) 120 H (75-99) mg/dL AST 101 H (17-59) U/L ALT 186 H (4-49) U/L Albumin 3.4 L (3.5-5.0) g/dL Microbiology - Last 24 Hours (Table) 05/23/20 15:00 Gram Stain - Final Sputum Sputum Culture - Final Assessment and Plan Plan: Assessment: 1. Acute kidney injury secondary to ATN secondary to hemodynamic instability as well as contrast-induced acute kidney injury. Renal function improved. Creatinine 1.31 today. 2. Systolic CHF with ejection fraction of 20-25%. 3. STEMI status post cardiac catheterization with stent placement to the circumflex and OM. 4. Moderate to severe mitral regurgitation and severe pulmonary hypertension. 5. Benign hypertension. Controlled. 6. Metabolic alkalosis secondary to diuretics as well as prednisone. Also with likely underlying chronic respiratory acidosis. Better. Plan: Maintain Lasix for now. I advised the patient to monitor his weight closely at home and to call if gains more than 2 or 3 pounds or has worsening of edema. Avoid nephrotoxins. Follow up outpatient in the next 7-10 days.
[2020-05-26 16:40] LABS: Glucose,Whole Blood 141 mg/dL (75-99)
--- NOTE | 2020-05-26 19:38 | P.PN ---
Subjective Progress Note Date: 05/26/20 Principal diagnosis: Acute hypoxic respiratory failure Acute pulmonary edema Acute systolic heart failure, echocardiogram results reviewed ejection fraction of 30% Status post cardioversion for sustained ventricular tachycardia Acute renal failure/acute kidney injury likely contrast nephropathy and component of prerenal Acute inferior wall LA History of diffuse coronary artery disease 05/26/2020, patient seen eval examined during the rounds labs reviewed medications reviewed care plan discussed, cough congestion shortness was significant improved not coughing any blood as strange or thick sputum, off of antibiotics and steroids, off of oxygen as well, patient has a even monitor likely will be discharged in 24 hours 05/25/2020, patient seen eval examined during the rounds labs reviewed medications reviewed care plan discussed, denies any chest pain, shortness of breath improved significantly patient had another repeat echocardiogram, culture sputum have been negative, can DC Rocephin now and DC the steroids as well 05/24/2020, patient seen eval examined during the rounds labs reviewed medications reviewed care plan discussed, remains afebrile denies any hemoptysis shortness of breath significant improved off of BiPAP now, white cell count improved to 19,000, BUN/creatinine also slowly coming down last check was 47.28, remains afebrile since saturation 88-90% seizure oxygen, sputum culture and Gram stain results reviewed, gram-positive bacteria bacterial predominance is seen, patient is appropriately on IV Rocephin 05/23/2020, patient seen eval examined during the rounds labs reviewed medications reviewed, patient has been on Lasix with adequate urine output, no hemodynamic issues are present blood pressure is stable, patient remains on supplemental oxygen, FiO2 is down to 3 L, ultrasound of the abdomen has been reviewed no hydronephrosis is noted, patient remains afebrile, patient is however describing thick brownish phlegm we'll send it for Gram stain and culture we'll restart IV Rocephin patient may have component of tracheobronchitis however likely could be related to pulmonary edema and heart failure, amiodarone is oral now, patient is on Solu-Medrol 80 mg every 6 which is a hefty dose will decrease it to 40 mg IV every 12 This is a 60-year-old morbidly obese male who was seen evaluated examined on third floor currently patient is short of breath hypoxic, patient is on BiPAP 14/70-35% oxygen she is getting infusions of lidocaine drip and amiodarone drip, denies any chest pain or shortness of breath however is present, review of data revealed that patient see Dr. Sorenson for primary care activity, patient does have a history of prior LA as well as stent placement also have a history of hypertension and hypertensive cardiovascular disease dyslipidemia has obstructive sleep apnea unable to tolerate CPAP machine, as admitted into the hospital with substernal chest pain radiating to the left side, pain did not resolve with nitroglycerin was brought into the hospital by EMS EKG revealed presence of ST segment elevation found to have acute inferior wall LA underwent cardiac cath and angiogram found to have patent previous stent and LAD stent placement with mild disease in diagonal and mid LAD, circumflex shows 100% obstruction with 95% blockage and opt is marginal and 90% mid circumflex, patient underwent successful PCI obtuse marginal and proximal circumflex, yesterday evening patient noted to have sustained ventricular tachycardia synchronize cardioversion was performed, around 2 in the morning patient has acute onset of shortness of breath he was awake at that time, denies any chest pain, CHF-like finding were noted on x-ray with a small pleural effusion, labs reviewed white cell count 16,500 with stable hemoglobin arterial blood gases done at the incident pH was 7.28 pCO2 40 and pO2 400 on 100% oxygen, BUN/creatinine 32 and 1.69 from baseline of 22 and 1.03, AST ALT also up 476 and 190,, currently patient is undergoing an echocardiogram, cardio vascular service is also present at bedside evaluating the patient, Objective - Vital Signs Vital signs: Vital Signs Temp 97.0 F L 05/26/20 16:25 Pulse 78 05/26/20 16:25 Resp 18 05/26/20 16:25 BP 121/89 05/26/20 16:25 Pulse Ox 96 05/26/20 16:25 Intake & Output 05/26/20 05/26/20 05/27/20 06:59 18:59 06:59 Intake Total 960 Output Total 0 Balance 0 960 Weight 116.7 kg Intake: Oral 960 Output: Urine 0 Other: Voiding Method Urinal # Voids 2 # Bowel Movements 0 - Exam - Constitutional General appearance: disheveled, morbidly obese - EENT Eyes: PERRLA ENT: hearing grossly normal Ears: bilateral: normal - Neck Carotids: bilateral: upstroke normal Thyroid: negative: normal size - Respiratory Respiratory: bilateral: diminished - Cardiovascular Rhythm: regular Heart sounds: normal: S1, S2 - Gastrointestinal General gastrointestinal: soft - Integumentary Bilateral +1 edema of lower extremities - Neurologic Neurologic: CNII-XII intact - Musculoskeletal Musculoskeletal: gait normal, generalized weakness, strength equal bilaterally - Psychiatric Psychiatric: A&O x's 3, appropriate affect, intact judgment & insight - Labs CBC & Chem 7: 05/25/20 08:28 05/26/20 08:32 Labs: Abnormal Lab Results - Last 24 Hours (Table) 05/25/20 05/26/20 05/26/20 Range/Units 20:30 05:48 08:32 BUN 46 H (9-20) mg/dL Creatinine 1.31 H (0.66-1.25) mg/dL Glucose 152 H (74-99) mg/dL POC Glucose (mg/dL) 142 H 105 H (75-99) mg/dL AST 101 H (17-59) U/L ALT 186 H (4-49) U/L Albumin 3.4 L (3.5-5.0) g/dL 05/26/20 05/26/20 Range/Units 11:49 16:38 BUN (9-20) mg/dL Creatinine (0.66-1.25) mg/dL Glucose (74-99) mg/dL POC Glucose (mg/dL) 120 H 141 H (75-99) mg/dL AST (17-59) U/L ALT (4-49) U/L Albumin (3.5-5.0) g/dL Assessment and Plan Assessment: Acute hypoxic respiratory failure Acute pulmonary edema Paroxysmal sustained ventricular tachycardia status post cardioversion Tracheobronchitis Acute systolic heart failure, echocardiogram results reviewed ejection fraction of 35% Acute renal failure/acute kidney injury likely contrast nephropathy Acute inferior wall LA History of diffuse coronary artery disease Plan: Observe off of oxygen Sputum for Gram stain and culture negative for [place] organism Observe off of IV Rocephin, reviewed cultures reports Observe off of Solu-Medrol to every 12 Continue BiPAP each night as needed Patient will need a sleep study on outpatient basis Gentle diuresis Follow up on echocardiogram, reviewed ejection fraction 35% with global hypokinesia Finding consistent with pulmonary edema and acute respiratory failure related to that we will monitor on maximal cardiac therapy Further recommendations pending plan of care as per clinical response of the patient Time with Patient: Greater than 30
[2020-05-26 20:27] LABS: Glucose,Whole Blood 127 mg/dL (75-99)
[2020-05-26] MEDS: ALPRAZolam 0.25 MG TAB PO PRN (21:22)
[2020-05-26] MEDS: MELATONIN 3 MG TABLET PO SCH (21:22)
[2020-05-27 03:30] VITALS: RESP 18
[2020-05-27 05:51] LABS: Glucose,Whole Blood 94 mg/dL (75-99)
[2020-05-27] MEDS: LEVOTHYROXINE 100 MCG TAB PO SCH (05:53)
[2020-05-27] MEDS: LEVOTHYROXINE 75 MCG TAB PO SCH (05:53)
[2020-05-27] MEDS: INSULIN ASPART (NovoLOG) 100 UNIT/ML VIAL SQ SCH ×2 (07:11→12:15)
--- NOTE | 2020-05-27 09:06 | P.PN ---
Subjective Progress Note Date: 05/26/20 HISTORY OF PRESENT ILLNESS This is a 60-year-old male patient of Dr. Alonzo with past medical history of coronary artery disease with previous myocardial infarctions and s tenting, hypertension, hyperlipidemia, hypothyroidism, obstructive sleep apnea unable to tolerate CPAP, remote history of tobacco use. Patient gives history that after dinner he developed shortness of breath as well as chest pain that was in the midsternal area radiating to the left side along with nausea, vomiting, sweats and palpitations. He denies any radiation to his jaw or arm. He denies any syncopal episode. He states these are the same symptoms he presented with his first myocardial infarction. He took a couple nitroglycerin with minimal improvement of his chest pain and called 911 and was brought into the hospital by ambulance. Patient was found to have EKG changes with ST elev ation. He was diagnosed with acute inferior posterior MN and immediately taken to the [facility]. He was found have a patent stent in the LAD with mild disease in the diagonal and mid LAD. Circumflex showed 100% in the proximal area, OM1 95% stenosis, 90% in the mid circumflex. Patient underwent successful PCI of the OM1 and proximal circumflex. The patient is seen today in the intensive care unit the patient has been hemodynamically stable and expected to transfer to the cardiac stepdown unit today. Patient denies any chest pain, shortness of breath, nausea or vomiting at the time of this evaluation. 05/21. Patient had gone into sustained V. tach, 13 minute episode, started amiodarone, cardiology was notified on this, patient also has fever last night, 99.8, Covid test was negative on May 19, patient has sweats, no cough, incentive spirometry ordered, repeat Steven PCR, high-risk patient. Patient denies any chest pain, has palpitations, has diaphoresis and sweats, no cough yet has chills. No urinary symptoms. 05/22: Patient had an event last night, requiring the A team he had again another episode of persistent ventricular tachycardia, while on amiodarone drip, patient was given lidocaine IV, he subsequently went into nocturnal paroxysmal dyspnea last night around 2 AM, another A team called in for these symptoms, Lasix 40 was given, however there is no urine output of only 40 mL, there is no blood pressure according to the rescue team as they were having a hard time obtaining one, however patient was alert during this episode. He was diaphoretic at that time, requested the patient be transferred to ICU, however he was subsequently stabilized, and remained on the cardiac floor. He mentions that the albuterol has helped a lot, Pulmicort started, and Solu-Medrol started. Patient was a previous smoker, quit over 5 years ago. Echocardiogram shows an EF of 25-30%, hypokinetic LV lateral wall, inferior LV wall hypokinesia, apical inferior LV wall hypokinesia, severe pulmonary hypertension, right ventricle systolic pressure of 68, consult with Dr. Cleveland pulmonary medicine chest x-ray, mild CHF with mild diffuse interstitial opacification, small pleural effusion right side, no fevers over the past 24 hours No pericardial effusion.. Start Aldactone 25 mg daily, check for PVRs, renal ultrasound for hydronephrosis 05/23:, Patient continues to improve, no paroxysmal nocturnal dyspnea last night, however patient did not sleep either. Patient has less shortness of breath, currently decreased on Solu-Medrol, nebulized treatments still scheduled 4 times a day, creatinine is improved, blood pressure systolic is around 105, heart rate in the 80s pulse ox 93% on 4 L nasal cannula creatinine are at 1.3, potassium 3.3, Replaced patient does not have any abdominal pain, no chest pain, follow-up chest x-ray to be done for opacifications of the lung, as well as pleural effusion, IV Lasix 40 mg every 12 hours. 05/24 patient feels lightheaded today, with orthostasis, hydralazine has been decreased to 25 mg 3 times a day systolic blood pressure of 99, chest x-ray still CHF changes, Lasix 40 every 12, need to be titrated up once blood pressures improved. Counseled on nutrition, high protein low salt diet, no chest pain, no PND last night. No fever and normal bowel movement, no new hemoptysis, chest 1 episode of hemoptysis 2 days ago. Hemoglobin stable. 05/25: Patient is found sitting in chair and appears to be comfortable. He is scheduled for repeat echocardiogram today and may be candidate for AICD. 05/26: Repeat echocardiogram reveals moderate concentric left ventricular hypertrophy with EF of 35-40%, severe mitral regurgitation, mild to moderate tricuspid regurgitation, severe pulmonary hypertension. Patient denies any chest pain, shortness of breath, lightheadedness or dizziness. He has been afebrile, heart rate 83, blood pressure 120/72, pulse ox 92% on room air. Repeat blood work reveals BUN 46 and creatinine 1.31. AST 101 and ALT 186. Pravastatin will be held at discharge due to elevated liver function tests. Th simi will need to be rechecked in the outpatient setting and patient can be resumed on statin at a later time. Patient is to be set up with LifeVest prior to discharge. Nephrology is recommended maintaining Lasix. Patient was instructed to monitor his weight closely at home and to call nephrology if he gains more than 2 or 3 pounds or has worsening of edema. Patient will be discharged home today in stable condition. REVIEW OF SYSTEMS Constitutional: No fever, no chills, no night sweats. No weight change. No weakness, fatigue or lethargy. No daytime sleepiness. EENT: No headache. No blurred vision or double vision, no loss of vision. No loss of Hearing, no ringing in the ears, no dizziness. No nasal drainage or congestion. No epistaxis. No sore throat. Lungs: No shortness of breath, cough, no sputum production. No wheezing. Cardiovascular: No chest pain, no lower extremity edema. No palpitations. No paroxysmal nocturnal dyspnea. No orthopnea. No lightheadedness or dizziness. No syncopal episodes. Abdominal: No abdominal pain. No nausea, vomiting. No diarrhea. No constipation. No bloody or tarry stools.. No loss of appetite. Genitourinary: No dysuria, increased frequency, urgency. No urinary retention. Musculoskeletal: No myalgias. No muscle weakness, no gait dysfunction, no frequent falls. No back pain. No neck pain. Integumentary: No wounds, no lesions. No rash or pruritus. No unusual bruising. No change in hair or nails. Neurologic: No aphasia. No facial droop. No change in mentation. No head injury. No headache. No paralysis. No paresthesia. Psychiatric: No depression. No anxiety. No mood swings. Endocrine: No abnormal blood sugars. No weight change. No excessive sweating or thirst. No cold intolerance. PHYSICAL EXAMINATION Gen: This is a 60-year-old morbidly obese male. He is resting in the ICU bed and appears to be comfortable and in no acute distress. HEENT: Head is atraumatic, normocephalic. Pupils equal, round. Sclerae is anicteric. NECK: Supple. No JVD. No lymphadenopathy. No thyromegaly. LUNGS: Clear to auscultation. No wheezes or rhonchi. No intercostal retractions. HEART: Regular rate and rhythm. No murmur. ABDOMEN: Soft. Bowel sounds are present. No masses. No tenderness. EXTREMITIES: No pedal edema. No calf tenderness. Dorsalis pedis palpable bilaterally. NEUROLOGICAL: Patient is awake, alert and oriented x3. Cranial nerves 2 through 12 are grossly intact. ASSESSMENT AND PLAN 1. Acute inferior ST elevated myocardial infarction status post PCI of the distal OM1 and proximal circumflex. Continue aspirin 81 mg daily, Plavix 75 mg daily, Lopressor 50 mg daily, Pravachol -on hold . Cardiology consult [facility] ed. 2. Acute systolic heart failure, EF of 25-30%, with ischemic cardiomyopathy. Continue Lasix currently oral at 40 mg twice daily, Lopressor 50 mg twice daily, Aldactone 25 mg daily. 3. Ventricular tachycardia status post denies cardioversion. Patient may require AICD at later date. Patient is currently on amiodarone 400 mg twice daily. LifeVest ordered. 4. Acute hypoxic respiratory failure requiring BiPAP, currently stable. Patient is on room air. 5. Severe pulmonary hypertension, secondary, right ventricle systolic pressure of 68. Patient needs to be studied as an outpatient include sleep study pulmonary. 6. Valvular heart disease with moderate to severe mitral regurgitation and [id number] tricuspid regurgitation. 7. History of coronary artery disease with previous myocardial infarctions and stenting. Continue as in #1. 8. COPD exacerbation. Currently on IV Solu-Medrol 40 mg every 12 hours which will be transitioned to prednisone 40 mg in the morning, continue, nebulized solution albuterol, and budesonide 9. Acute kidney injury, secondary to contrast leading to toxic ATN, episode of V. tach with hemodynamic instability, urinary retention. Nephrology consult appreciated. Continue to monitor closely, I&O, avoid nephrotoxic agents and hypotension. 10. Hypertension. Continue hydralazine 25 mg 3 times daily, Lopressor. 11. Hyperlipidemia. Statin on hold due to elevated liver function test. 12. Objective sleep apnea unable to tolerate CPAP. 13. Remote history of tobacco use. 14. Hypothyroidism. Continue levothyroxine 175 g daily 15. Transaminitis secondary to hemodynamic instability with V. tach. 16. Morbid obesity with BMI of 44. GI prophylaxis. Pepcid DISCHARGE PLAN Home. Impression and plan of care have been directed as dictated by the signing physician. Monica Ho nurse practitioner acting as scribe for signing physician. Objective - Vital Signs Vital signs: Vital Signs Temp 97.8 F 05/27/20 03:28 Pulse 70 05/27/20 03:28 Resp 18 05/27/20 03:28 BP 148/99 05/27/20 03:28 Pulse Ox 94 L 05/27/20 03:28 Intake & Output 05/26/20 05/27/20 05/27/20 18:59 06:59 18:59 Intake Total 960 Balance 960 Weight 117.1 kg Intake: Oral 960 Other: Voiding Method Toilet # Voids 2 1 - Labs CBC & Chem 7: 05/25/20 08:28 05/26/20 08:32 Labs: Abnormal Lab Results - Last 24 Hours (Table) 05/26/20 05/26/20 05/26/20 Range/Units 08:32 11:49 16:38 BUN 46 H (9-20) mg/dL Creatinine 1.31 H (0.66-1.25) mg/dL Glucose 152 H (74-99) mg/dL POC Glucose (mg/dL) 120 H 141 H (75-99) mg/dL AST 101 H (17-59) U/L ALT 186 H (4-49) U/L Albumin 3.4 L (3.5-5.0) g/dL 05/26/20 Range/Units 20:25 BUN (9-20) mg/dL Creatinine (0.66-1.25) mg/dL Glucose (74-99) mg/dL POC Glucose (mg/dL) 127 H (75-99) mg/dL AST (17-59) U/L ALT (4-49) U/L Albumin (3.5-5.0) g/dL
[2020-05-27] MEDS: BUDESONIDE 0.5 MG/2 ML NEBU INHALATION SCH (09:09)
[2020-05-27] MEDS: IPRATROPIUM-ALBUTEROL 3 ML NEB INHALATION SCH ×3 (09:09→16:28)
[2020-05-27] MEDS: SPIRONOLACTONE 25 MG TAB PO SCH (09:21)
[2020-05-27] MEDS: FAMOTIDINE 20 MG TAB PO SCH (09:21)
[2020-05-27] MEDS: AMIODARONE 200 MG TAB PO SCH (09:21)
[2020-05-27] MEDS: ASPIRIN 81 MG PO SCH (09:21)
[2020-05-27] MEDS: SENNOSIDES-DOCUSATE SODIUM 1 EACH TAB PO SCH (09:21)
[2020-05-27] MEDS: METOPROLOL TARTRATE 50 MG TAB PO SCH (09:21)
[2020-05-27] MEDS: predniSONE 20 MG TAB PO SCH (09:21)
[2020-05-27] MEDS: MEXILETINE 150 MG CAP PO SCH (09:21)
[2020-05-27] MEDS: FUROSEMIDE 40 MG TAB PO SCH ×2 (09:22→15:39)
[2020-05-27] MEDS: ISOSORBIDE MONONITRATE ER 60 MG TAB.ER.24H PO SCH (09:22)
[2020-05-27] MEDS: hydrALAZINE HCL 25 MG TAB PO SCH ×2 (09:22→15:39)
[2020-05-27] MEDS: CLOPIDOGREL 75 MG TAB PO SCH (09:22)
--- NOTE | 2020-05-27 10:28 | P.PN ---
Subjective Patient is seen in follow for acute kidney injury. No active complaints. Good urine output. No chest pain or shortness of breath. Blood pressure stable. Potentially being discharged today. Vital signs are stable. General: The patient appeared well nourished and normally developed. HEENT: Head exam is unremarkable. Neck is without jugular venous distension. LUNGS: Breath sounds decreased. HEART: Rate and Rhythm are regular. ABDOMEN: Soft, nontender. EXTREMITITES: No edema. Objective - Vital Signs Vital signs: Vital Signs Temp 97.8 F 05/27/20 03:28 Pulse 72 05/27/20 09:24 Resp 18 05/27/20 03:28 BP 148/99 05/27/20 03:28 Pulse Ox 94 L 05/27/20 03:28 Intake & Output 05/26/20 05/27/20 05/27/20 18:59 06:59 18:59 Intake Total 960 240 Output Total 250 Balance 960 -10 Weight 117.1 kg Intake: Oral 960 240 Output: Urine 250 Other: Voiding Method Toilet # Voids 2 1 - Labs CBC & Chem 7: 05/25/20 08:28 05/26/20 08:32 Labs: Abnormal Lab Results - Last 24 Hours (Table) 05/26/20 05/26/20 05/26/20 Range/Units 11:49 16:38 20:25 POC Glucose (mg/dL) 120 H 141 H 127 H (75-99) mg/dL Assessment and Plan Plan: Assessment: 1. Acute kidney injury secondary to ATN secondary to hemodynamic instability as well as contrast-induced acute kidney injury. Renal function improved. Creatinine 1.31 as of yesterday. UA benign. 2. Systolic CHF with ejection fraction of 20-25%. 3. STEMI status post cardiac catheterization with stent placement to the circumflex and OM. 4. Moderate to severe mitral regurgitation and severe pulmonary hypertension. 5. Benign hypertension. Controlled. 6. Metabolic alkalosis secondary to diuretics as well as prednisone. Also with likely underlying chronic respiratory acidosis. Better. Plan: Maintain Lasix for now. I advised the patient to monitor his weight closely at home and to call if gains more than 2 or 3 pounds or has worsening of edema. Avoid nephrotoxins. Follow up outpatient in the next 7-10 days.
--- NOTE | 2020-05-27 11:17 | P.PN ---
Subjective Progress Note Date: 05/27/20 Principal diagnosis: Acute hypoxic respiratory failure Acute pulmonary edema Acute systolic heart failure, echocardiogram results reviewed ejection fraction of 30% Status post cardioversion for sustained ventricular tachycardia Acute renal failure/acute kidney injury likely contrast nephropathy and component of prerenal Acute inferior wall LA History of diffuse coronary artery disease 05/27/2020, patient seen eval examined during the rounds labs reviewed medications reviewed patient is being planned for discharge later on today with event monitor, cough shortness of breath is improved now patient is off of antibiotics and steroids agree with discharge planning follow-up as outpatient 05/26/2020, patient seen eval examined during the rounds labs reviewed medicatio ns reviewed care plan discussed, cough congestion shortness was significant improved not coughing any blood as strange or thick sputum, off of antibiotics and steroids, off of oxygen as well, patient has a even monitor likely will be discharged in 24 hours 05/25/2020, patient seen eval examined during the rounds labs reviewed medications reviewed care plan discussed, denies any chest pain, shortness of breath improved significantly patient had another repeat echocardiogram, culture sputum have been negative, can DC Rocephin now and DC the steroids as well 05/24/2020, patient seen eval examined during the rounds labs reviewed medications reviewed care plan discussed, remains afebrile denies any hemoptysis shortness of breath significant improved off of BiPAP now, white cell count improved to 19,000, BUN/creatinine also slowly coming down last check was 47.28, remains afebrile since saturation 88-90% seizure oxygen, sputum culture and Gram stain results reviewed, gram-positive bacteria bacterial predominance is seen, patient is appropriately on IV Rocephin 05/23/2020, patient seen eval examined during the rounds labs reviewed medications reviewed, patient has been on Lasix with adequate urine output, no hemodynamic issues are present blood pressure is stable, patient remains on supplemental oxygen, FiO2 is down to 3 L, ultrasound of the abdomen has been reviewed no hydronephrosis is noted, patient remains afebrile, patient is however describing thick brownish phlegm we'll send it for Gram stain and culture we'll restart IV Rocephin patient may have component of tracheobron chitis however likely could be related to pulmonary edema and heart failure, amiodarone is oral now, patient is on Solu-Medrol 80 mg every 6 which is a hefty dose will decrease it to 40 mg IV every 12 This is a 60-year-old morbidly obese male who was seen evaluated examined on third floor currently patient is short of breath hypoxic, patient is on BiPAP 14/70-35% oxygen she is getting infusions of lidocaine drip and amiodarone drip, denies any chest pain or shortness of breath however is present, review of data revealed that patient see Dr. Sorenson for primary care activity, patient does have a history of prior LA as well as stent placement also have a history of hypertension and hypertensive cardiovascular disease dyslipidemia has obstructive sleep apnea unable to tolerate CPAP machine, as admitted into the hospital with substernal chest pain radiating to the left side, pain did not re solve with nitroglycerin was brought into the hospital by EMS EKG revealed presence of ST segment elevation found to have acute inferior wall LA underwent cardiac cath and angiogram found to have patent previous stent and LAD stent placement with mild disease in diagonal and mid LAD, circumflex shows 100% obstruction with 95% blockage and opt is marginal and 90% mid circumflex, patient underwent successful PCI obtuse marginal and proximal circumflex, yesterday evening patient noted to have sustained ventricular tachycardia synchronize cardioversion was performed, around 2 in the morning patient has acute onset of shortness of breath he was awake at that time, denies any chest pain, CHF-like finding were noted on x-ray with a small pleural effusion, labs reviewed white cell count 16,500 with stable hemoglobin arterial blood gases done at the incident pH was 7.28 pCO2 40 and pO2 400 on 100% oxygen, BUN/creatinine 32 and 1.69 from baseline of 22 and 1.03, AST ALT also up 476 and 190,, currently patient is undergoing an echocardiogram, cardio vascular service is also present at bedside evaluating the patient, Objective - Vital Signs Vital signs: Vital Signs Temp 97.9 F 05/27/20 08:05 Pulse 72 05/27/20 09:24 Resp 18 05/27/20 08:05 BP 115/79 05/27/20 08:05 Pulse Ox 98 05/27/20 08:05 Intake & Output 05/26/20 05/27/20 05/27/20 18:59 06:59 18:59 Intake Total 960 240 Output Total 250 Balance 960 -10 Weight 117.1 kg Intake: Oral 960 240 Output: Urine 250 Other: Voiding Method Toilet # Voids 2 1 - Exam - Constitutional General appearance: disheveled, morbidly obese - EENT Eyes: PERRLA ENT: hearing grossly normal Ears: bilateral: normal - Neck Carotids: bilateral: upstroke normal Thyroid: negative: normal size - Respiratory Respiratory: bilateral: diminished - Cardiovascular Rhythm: regular Heart sounds: normal: S1, S2 - Gastrointestinal General gastrointestinal: soft - Integumentary Bilateral +1 edema of lower extremities - Neurologic Neurologic: CNII-XII intact - Musculoskeletal Musculoskeletal: gait normal, generalized weakness, strength equal bilaterally - Psychiatric Psychiatric: A&O x's 3, appropriate affect, intact judgment & insight - Labs CBC & Chem 7: 05/25/20 08:28 05/26/20 08:32 Labs: Abnormal Lab Results - Last 24 Hours (Table) 05/26/20 05/26/20 05/26/20 Range/Units 11:49 16:38 20:25 POC Glucose (mg/dL) 120 H 141 H 127 H (75-99) mg/dL Assessment and Plan Assessment: Acute hypoxic respiratory failure Acute pulmonary edema Paroxysmal sustained ventricular tachycardia status post cardioversion Tracheobronchitis Acute systolic heart failure, echocardiogram results reviewed ejection fraction of 35% Acute renal failure/acute kidney injury likely contrast nephropathy Acute inferior wall LA History of diffuse coronary artery disease Plan: Observe off of oxygen Sputum for Gram stain and culture negative for [place] organism Observe off of IV Rocephin, reviewed cultures reports Observe off of Solu-Medrol to every 12 Continue BiPAP each night as needed Patient will need a sleep study on outpatient basis Gentle diuresis Follow up on echocardiogram, reviewed ejection fraction 35% with global hypokinesia Finding consistent with pulmonary edema and acute respiratory failure related to that we will monitor on maximal cardiac therapy Further recommendations pending plan of care as per clinical response of the patient Time with Patient: Greater than 30
[2020-05-27 12:02] LABS: Glucose,Whole Blood 106 mg/dL (75-99)
--- NOTE | 2020-05-27 12:06 | P.PN ---
Subjective This is a pleasant 60-year-old male past medical history significant for coronary artery disease, hypertension and dyslipidemia who presented to the hospital with an acute inferior, posterior myocardial infarction. He underwent stenting of the circumflex and OM branch. He is seen and examined sitting up in the chair in no acute distress. He states since yesterday late afternoon he has been feeling back to his baseline. He has no symptoms of chest pain, shortness of breath, dizziness or palpitations. Telemetry tracings have been unremarkable. Repeat echo reveals impaired LV systolic function with ejection fraction 35-40% with basal lateral, basal inferior and basal septal wall motion hypokinesia and severe mitral regurgitation. Blood pressure 120/72 heart rate 85 afebrile maintaining oxygen saturation on room air. Laboratory data reviewed, sodium 137, potassium 4.0, creatinine 1.31. Currently maintained on amiodarone 400 mg twice a day, aspirin 81 mg daily, Plavix 75 mg daily, Lasix 40 mg twice a day, hydralazine 25 mg 3 times a day, Imdur 60 mg daily, metoprolol 50 mg twice a day, mexiletine 150 mg twice a day and Aldactone 25 mg daily. 05/27/2020 Pt is seen and examined resting comfortably laying flat in bed. He was fitted yesterday for [employer]. Blood pressure 115/79 heart rate 72 afebrile and maintaining oxygen saturation on room air. Telemetry tracings indicate he is maintaining sinus mechanism with no further episodes of ventricular tachycardia. He denies chest pain, shortness of breath, dizziness or palpitations. GENERAL: Well-appearing, well-nourished and in no acute distress. NECK: Supple without JVD or thyromegaly. LUNGS: Breath sounds clear to auscultation bilaterally. Respiration equal and unlabored. No wheezes, rales or rhonchi. HEART: Regular rate and rhythm with systolic ejection murmurs, rubs or gallops. S1 and S2 heard. EXTREMITIES: Normal range of motion, no edema. No clubbing or cyanosis. Peripheral pulses intact. ASSESSMENT Acute inferior and posterior myocardial infarction status post PCI of the circumflex and OM Sustained ventricular tachycardia status post synchronized cardioversion Ischemic cardiomyopathy Acute kidney injury Moderate to severe mitral regurgitation Acute systolic heart failure Severe pulmonary hypertension Hypertension Dyslipidemia Morbid obesity, BMI 44 PLAN Stable for discharge from a cardiac perspective. Follow up with Dr. Rodrigez upon discharge. Nurse Practitioner note has been reviewed, I agree with a documented findings and plan of care. Patient was seen and examined. Objective - Vital Signs Vital signs: Vital Signs Temp 97.8 F 05/27/20 03:28 Pulse 72 05/27/20 09:24 Resp 18 05/27/20 03:28 BP 148/99 05/27/20 03:28 Pulse Ox 94 L 05/27/20 03:28 Intake & Output 05/26/20 05/27/20 05/27/20 18:59 06:59 18:59 Intake Total 960 Balance 960 Weight 117.1 kg Intake: Oral 960 Other: Voiding Method Toilet # Voids 2 1 - Labs CBC & Chem 7: 05/25/20 08:28 05/26/20 08:32 Labs: Abnormal Lab Results - Last 24 Hours (Table) 05/26/20 05/26/20 05/26/20 Range/Units 08:32 11:49 16:38 BUN 46 H (9-20) mg/dL Creatinine 1.31 H (0.66-1.25) mg/dL Glucose 152 H (74-99) mg/dL POC Glucose (mg/dL) 120 H 141 H (75-99) mg/dL AST 101 H (17-59) U/L ALT 186 H (4-49) U/L Albumin 3.4 L (3.5-5.0) g/dL 05/26/20 Range/Units 20:25 BUN (9-20) mg/dL Creatinine (0.66-1.25) mg/dL Glucose (74-99) mg/dL POC Glucose (mg/dL) 127 H (75-99) mg/dL AST (17-59) U/L ALT (4-49) U/L Albumin (3.5-5.0) g/dL
[2020-05-27 16:03] VITALS: BP 119/76; PULSE 68; TEMP 97.6
== END 2020-05-27 16:19 | disposition home or self-care (01) | DRG 246 ==
LOC: EC 20:24 → 2SICU 21:00 → 3SCARD 05-20 13:24
PROVIDERS: ADMIT Internal Medicine Geriatric Medicine; ATTEND Internal Medicine Geriatric Medicine
PROC: 4A023N7 Measurement of Cardiac Sampling and Pressure, Left Heart, Percutaneous Approach (ICD-10-PCS; 2020-05-19)
PROC: B2111ZZ Fluoroscopy of Multiple Coronary Arteries using Low Osmolar Contrast (ICD-10-PCS; 2020-05-19)
PROC: B240ZZ3 Ultrasonography of Single Coronary Artery, Intravascular (ICD-10-PCS; 2020-05-19)
PROC: 027136Z Dilation of Coronary Artery, Two Arteries with Three Drug-eluting Intraluminal Devices, Percutaneous Approach (ICD-10-PCS; principal; 2020-05-19 21:05)
PROC: 5A2204Z Restoration of Cardiac Rhythm, Single (ICD-10-PCS; 2020-05-21)
PROC: 4A023N7 Measurement of Cardiac Sampling and Pressure, Left Heart, Percutaneous Approach (ICD-10-PCS; 2020-05-21)
PROC: B2111ZZ Fluoroscopy of Multiple Coronary Arteries using Low Osmolar Contrast (ICD-10-PCS; 2020-05-21)
PROC: 5A09357 Assistance with Respiratory Ventilation, Less than 24 Consecutive Hours, Continuous Positive Airway Pressure (ICD-10-PCS; 2020-05-22)
DX: I21.19 ST elevation (STEMI) myocardial infarction involving other coronary artery of inferior wall (principal); I50.23 Acute on chronic systolic (congestive) heart failure; J96.01 Acute respiratory failure with hypoxia; I50.21 Acute systolic (congestive) heart failure; N17.0 Acute kidney failure with tubular necrosis; Z68.42 Body mass index [BMI] 45.0-49.9, adult; I47.2 Ventricular tachycardia; J44.1 Chronic obstructive pulmonary disease with (acute) exacerbation; E87.4 Mixed disorder of acid-base balance; I11.0 Hypertensive heart disease with heart failure; Z20.828 Contact with and (suspected) exposure to other viral communicable diseases; I27.22 Pulmonary hypertension due to left heart disease; E66.01 Morbid (severe) obesity due to excess calories; I25.10 Atherosclerotic heart disease of native coronary artery without angina pectoris; E78.5 Hyperlipidemia, unspecified; G47.33 Obstructive sleep apnea (adult) (pediatric); M19.90 Unspecified osteoarthritis, unspecified site; E03.9 Hypothyroidism, unspecified; R33.9 Retention of urine, unspecified; F41.9 Anxiety disorder, unspecified; I08.1 Rheumatic disorders of both mitral and tricuspid valves; R74.01 Elevation of levels of liver transaminase levels; I25.5 Ischemic cardiomyopathy; N14.1 Nephropathy induced by other drugs, medicaments and biological substances; T50.1X5A Adverse effect of loop [high-ceiling] diuretics, initial encounter; T50.8X5A Adverse effect of diagnostic agents, initial encounter; I25.2 Old myocardial infarction; Z71.3 Dietary counseling and surveillance; Z79.890 Hormone replacement therapy; Z79.82 Long term (current) use of aspirin; Z79.899 Other long term (current) drug therapy; Z79.02 Long term (current) use of antithrombotics/antiplatelets; Z95.5 Presence of coronary angioplasty implant and graft; Z98.890 Other specified postprocedural states; Z87.891 Personal history of nicotine dependence; Z88.8 Allergy status to other drugs, medicaments and biological substances; Z82.49 Family history of ischemic heart disease and other diseases of the circulatory system
CPT/HCPCS: 36415; 36600; 71045; 71046; 76770; 80048; 80053; 80061; 81003; 82805; 83036; 83735; 83880; 84133; 84145; 84300; 84443; 84484; 84540; 85025; 85347; 85610; 85730; 87070; 87205; 87635; 92978; 93005; 93306; 93308; 93454; 94640; 94660; 94760; 96374; 99291

== ENCOUNTER 2020-06-15 06:35 | Inpatient (IN) | payer OTHER ==
[2020-06-15] MEDS ORDERED: SODIUM CHLORIDE 0.9% 1,000 ML IV ONE (07:00)
[2020-06-15 07:10] LABS: Basophils # (A) 0.1 k/uL (0-0.2); Basophils % (A) 1 %; Eosinophils % (A) 0 %; HCT 43.9 % (39.0-53.0); HGB 14.2 gm/dL (13.0-17.5); Lymphocytes # (A) 0.8 k/uL (1.0-4.8); Lymphocytes % (A) 7 %; MCH 30.6 pg (25.0-35.0); MCHC 32.4 g/dL (31.0-37.0); MCV 94.3 fL (80.0-100.0); Mean Platelet Volume 8.1; Monocytes # (A) 0.4 k/uL (0-1.0); Monocytes % (A) 3 %; Neutrophils # (A) 9.5 k/uL (1.3-7.7); Neutrophils % (A) 87 %; RBC 4.66 m/uL (4.30-5.90); WBC 10.8 k/uL (3.8-10.6)
[2020-06-15 07:11] LABS: Albumin 2.9 g/dL (3.5-5.0); Calcium 8.3 mg/dL (8.4-10.2); Magnesium 1.8 mg/dL (1.6-2.3); Total Bilirubin 1.3 mg/dL (0.2-1.3); Total Protein 6.5 g/dL (6.3-8.2)
--- NOTE | 2020-06-15 07:13 | XR ---
EXAMINATION TYPE: XR chest 1V portable DATE OF EXAM: 06/15/2020 HISTORY: Shortness of breath. COMPARISON: 05/24/2020 TECHNIQUE: Single view of the chest is submitted. FINDINGS: Demonstrated are scattered senescent parenchymal change. There is persistent infiltrate throughout the right lung as well as left lower lobe. Correlate for un derlying pneumonia. The heart is stable. Hilar and mediastinal structures are within normal limits. Degenerative changes are seen of the dorsal spine. IMPRESSION: 1. There is persistent infiltrate throughout the right lung as well as left lower lobe. Correlate fo r underlying pneumonia.
[2020-06-15 07:14] LABS: Platelet Count 116 k/uL (150-450)
[2020-06-15] MEDS ORDERED: PIPERACILLIN-TAZOBACTAM 3.375 GM in SODIUM CHLORIDE 0.9% 100 ML IVPB STA (07:17)
--- NOTE | 2020-06-15 07:27 | ED ---
General Adult HPI - General Chief complaint: Shortness of Breath Stated complaint: SOB Time Seen by Provider: 06/15/20 07:09 Source: patient, EMS Mode of arrival: EMS Limitations: no limitations - History of Present Illness Initial comments: Dictation was produced using [employer] dictation software. please excuse any grammatical, word or spelling errors. This patient was cared for during a federal and state declared state of emergency secondary to Covid 19 Chief Complaint: 60-year-old male past medical history of heart failure seconda ry to myocardial infarction presents to the emergency department for bilateral lower extremity pain and shortness of breath. Patient was seen and evaluated at 7: 10 AM History of Present Illness: 60-year-old male. Last month he had a heart attack and required cardiac catheterization and percutaneous coronary intervention. During hospital stay he did have an episode of ventricular fibrillation. Since then patient has had a weak heart. Those recommended to him to have a AICD placed. He is currently wearing a life vest. He had an echocardiogram performed May 25 showing wall motion abnormalities to several portions of the heart. He is discharged on May 27. Patient states that approximately 4 hours prior to arrival he woke up because he was having significant pain in his bilateral lower extremities. He states that his pain that is crampy in nature and is located to his bilateral thigh laterally. States it radiates down the side of his leg. Upon waking up patient reports that he noticed he was short of breath. He called EMS and was brought to the emergency department. Patient states that he's been short of breath since being discharged home from the hospital. Last night he had [employer] for dinner. He realizes that he is not supposed to have high salt foods. Patient states he didn't lose his taste. Denies any fever, chills or night sweats. He reports that his shortness of breath was mostly worse last night. States it is worse with lying flat. Denies any cough. The from a hospitalized patient does not have any exposures to Crohn virus. According to nurse who received report from EMS patient was hypoxic upon initial arrival. He did have some mottled skin The ROS documented in this emergency department record has been reviewed and confirmed by me. Those systems with pertinent positive or negative responses have been documented in the HPI. All other systems are other negative and/or noncontributory. PHYSICAL EXAM: General Impression: Alert and oriented x3, mildly dyspneic HEENT: Normocephalic atraumatic, extra-ocular movements intact, pupils equal and reactive to light bilaterally, mucous membranes moist. Cardiovascular: Heart regular rate and rhythm Chest: Able to complete full sentences, no retractions, no tachypnea, diffuse lung crackles Abdomen: abdomen soft, non-tender, non-distended, no organomegaly Musculoskeletal: Pulses present and equal in all extremities, 1+ pitting edema to bilateral lower extremities, no tenderness to palpation of the hips or lateral thighs Motor: no focal deficits noted Neurological: CN II-XII grossly intact, no focal motor or sensory deficits noted Skin: Intact with no visualized rashes Psych: Normal affect and mood ED course: 50-year-old male presents to the emergency department for dyspnea. Patient has recent extensive cardiac disease suffered in the month of April status post myocardial infarction. Vital signs upon arrival shows temperature 99.7, is 95% on 15 L nonrebreather, rest of initial vital signs were within acceptable limits. Patient was allegedly mottled en route to the emergency department. He was placed on nonrebreather with improvement of symptoms. At this point diagnosis is in question. There is concern that perhaps patient's clinical presentation could be secondary to pneumonia sepsis. Patient has recent history of heart failure with reduced ejection fraction. It is likely harmful to put patient on the aggressive fluid resuscitation per sepsis protocol pathway for fluids because of his heart condition. Patient will be given gentle hydration. 7:55 AM: Plan care bedside ultrasound was performed. Patient does have signs upon edema with reduced ejection fraction and Lauri B lines in the anterior upper lung marques. Patient is reevaluated at approximately 7:55 AM. He does report improvement of his breathing. He does however complain of persistent lower extremity pain to his thighs and calves bilaterally. 8:05 AM: Patient began having continuous pain in his legs. He is given 4 mg morphine with slight improvement of symptoms. Patient has ultrasound detectable, though weak lower extremity pulses at the bilateral femoral and dorsalis pedis and posterior tibial. EKG interpretation: Ventricular rate 93, normal sinus rhythm,. Interval 150, QRS 86, QTC 514. No VT prolongation, QT is prolonged with measurement of 514. No signs of ischemia or infarction. Laboratory evaluation obtained. Mild leukocytosis of 10.8. There is no cytopenia however there is elevated neutrophils. INR is 1.2. D-dimer is greater than 34.10. PH is 7.53, pCO2 of 29 with a pO2 of 70 with a FiO2 of 50. Metabolic panel shows findings within acceptable limits W2 lactic acid level was 5.9 troponin is 1.260 elevated liver markers. CRP of 361 he is chronically by rest positive. Chest x-ray shows infiltrates concerning for pulmonary in fectious processes. Computed tomography scan of the chest was obtained due to multiple questionable diagnosis. CT shows diffuse bilateral ground glass opacities assisted: Pneumonia. There is questionable healthcare acquired pneumonia due to recent hospital admission. Patient given vancomycin and Zosyn. Patient's physical presentation likely covid 19 with superimposed bacterial pneumonia. Patient case discussed Dr. Schmitt is willing to accept patients care. Case was also discussed with Dr. Cleveland who is willing to accept patients care to intensive care unit. - Related Data Home Medications Medication Instructions Recorded Confirmed Levothyroxine Sodium [Synthroid] 175 mcg PO DAILY 11/29/13 06/15/20 Clopidogrel Bisulfate [Plavix] 75 mg PO HS 02/14/18 06/15/20 HYDROcodone/APAP 10-325MG [[place] 1 tab PO TID PRN 02/14/18 06/15/20 10-325] Previous Rx's Medication Instructions Recorded Aspirin 81 mg PO DAILY chew 02/19/18 Nitroglycerin Sl Tabs [Nitrostat] 0.4 mg SUBLINGUAL Q5M PRN #25 tab 02/19/18 Amiodarone [Cordarone] 200 mg PO BID #60 tab 05/26/20 Furosemide [Lasix] 40 mg PO BID@0900,1600 #60 tab 05/26/20 Isosorbide Mononitrate ER [Imdur] 60 mg PO DAILY #60 tab.er.24h 05/26/20 Metoprolol Tartrate [Lopressor] 50 mg PO BID #60 tab 05/26/20 Mexiletine [Mexitil] 150 mg PO Q12HR #60 cap 05/26/20 Spironolactone [Aldactone] 25 mg PO DAILY #30 tab 05/26/20 hydrALAZINE HCL [Apresoline] 25 mg PO TID #90 tab 05/26/20 Allergies Allergy/AdvReac Type Severity Reaction Status Date / Time atorvastatin calcium AdvReac Swelling Verified 06/15/20 08:44 [From Lipitor] Review of Systems ROS Statement: Those systems with pertinent positive or pertinent negative responses have been documented in the HPI. ROS Other: All systems not noted in ROS Statement are negative. Past Medical History Past Medical History: Chest Pain / Angina, Hyperlipidemia, Hypertension, Myocardial Infarction ([place]), Osteoarthritis (OA), Renal Disease, Sleep Apnea/CPAP/BIPAP, Thyroid Disorder Additional Past Medical History / Comment(s): no cpap used, "lung infection"2014, constipation, hemorrhoid, poor kidney funtion- 50% function Last Myocardial Infarction Date:: 05/19/2020 History of Any Multi-Drug Resistant Organisms: None Reported Past Surgical History: Heart Catheterization With Stent, Orthopedic Surgery Additional Past Surgical History / Comment(s): LEFT HIP SX -PIN PLACED-SINCE REMOVED, one cardiac stent, rt knee surgery with clamp and screw-later removed, 2 discs in neck Past Anesthesia/Blood Transfusion Reactions: No Reported Reaction Additional Past Anesthesia/Blood Transfusion Reaction / Comment(s): . Date of Last Stent Placement:: 05/19/2020 Past Psychological History: Anxiety Smoking Status: Former smoker Past Alcohol Use History: None Reported Past Drug Use History: Marijuana - Past Family History Mother Family Medical History: Deep Vein Thrombosis (DVT) General Exam Limitations: no limitations Course Vital Signs 06/15/20 06/15/20 06/15/20 06:36 06:44 07:00 Temperature 99.7 F H Pulse Rate 98 92 Respiratory 20 20 20 Rate Blood Pressure 101/83 88/59 O2 Sat by Pulse 95 96 Oximetry 06/15/20 06/15/20 06/15/20 07:22 08:00 08:49 Temperature Pulse Rate 89 93 91 Respiratory 28 H 28 H 24 Rate Blood Pressure 141/110 140/102 125/92 O2 Sat by Pulse 97 96 96 Oximetry Medical Decision Making - Lab Data Result diagrams: 06/15/20 06:54 06/15/20 06:54 Lab Results 06/15/20 06/15/20 06/15/20 Range/Units 06:54 06:54 06:54 WBC 10.8 H (3.8-10.6) k/uL RBC 4.66 (4.30-5.90) m/uL Hgb 14.2 (13.0-17.5) gm/dL Hct 43.9 (39.0-53.0) % MCV 94.3 (80.0-100.0) fL MCH 30.6 (25.0-35.0) pg MCHC 32.4 (31.0-37.0) g/dL RDW 14.0 (11.5-15.5) % Plt Count 116 L D (150-450) k/uL MPV 8.1 Neutrophils % 87 % Lymphocytes % 7 % Monocytes % 3 % Eosinophils % 0 % Basophils % 1 % Neutrophils # 9.5 H (1.3-7.7) k/uL Lymphocytes # 0.8 L (1.0-4.8) k/uL Monocytes # 0.4 (0-1.0) k/uL Eosinophils # 0.0 (0-0.7) k/uL Basophils # 0.1 (0-0.2) k/uL PT 11.9 (9.0-12.0) sec INR 1.2 H (<1.2) APTT 22.7 (22.0-30.0) sec D-Dimer >34.10 H (<0.60) mg/L FEU Sample Site ABG pH (7.35-7.45) ABG pCO2 (35-45) mmHg ABG pO2 (83-108) mmHg ABG HCO3 (21-25) mmol/L ABG Total CO2 (19-24) mmol/L ABG O2 Saturation (94-97) % ABG Base Excess mmol/L Brady Test FiO2 % Sodium 136 L (137-145) mmol/L Potassium 4.0 (3.5-5.1) mmol/L Chloride 97 L (98-107) mmol/L Carbon Dioxide 26 (22-30) mmol/L Anion Gap 13 mmol/L BUN 45 H (9-20) mg/dL Creatinine 1.80 H (0.66-1.25) mg/dL Est GFR (CKD-EPI)AfAm 46 (>60 ml/min/1.73 sqM) Est GFR (CKD-EPI)NonAf 39 (>60 ml/min/1.73 sqM) Glucose 134 H (74-99) mg/dL Plasma Lactic Acid Gm (0.7-2.0) mmol/L Calcium 8.3 L (8.4-10.2) mg/dL Magnesium 1.8 (1.6-2.3) mg/dL Total Bilirubin 1.3 (0.2-1.3) mg/dL AST 97 H (17-59) U/L ALT 71 H (4-49) U/L Alkaline Phosphatase 177 H (38-126) U/L Troponin I (0.000-0.034) ng/mL C-Reactive Protein (<10.0) mg/L NT-Pro-B Natriuret Pep pg/mL Total Protein 6.5 (6.3-8.2) g/dL Albumin 2.9 L (3.5-5.0) g/dL Coronavirus (PCR) (Not Detectd) 06/15/20 06/15/20 06/15/20 Range/Units 06:54 06:54 06:54 WBC (3.8-10.6) k/uL RBC (4.30-5.90) m/uL Hgb (13.0-17.5) gm/dL Hct (39.0-53.0) % MCV (80.0-100.0) fL MCH (25.0-35.0) pg MCHC (31.0-37.0) g/dL RDW (11.5-15.5) % Plt Count (150-450) k/uL MPV Neutrophils % % Lymphocytes % % Monocytes % % Eosinophils % % Basophils % % Neutrophils # (1.3-7.7) k/uL Lymphocytes # (1.0-4.8) k/uL Monocytes # (0-1.0) k/uL Eosinophils # (0-0.7) k/uL Basophils # (0-0.2) k/uL PT (9.0-12.0) sec INR (<1.2) APTT (22.0-30.0) sec D-Dimer (<0.60) mg/L FEU Sample Site ABG pH (7.35-7.45) ABG pCO2 (35-45) mmHg ABG pO2 (83-108) mmHg ABG HCO3 (21-25) mmol/L ABG Total CO2 (19-24) mmol/L ABG O2 Saturation (94-97) % ABG Base Excess mmol/L Brady Test FiO2 % Sodium (137-145) mmol/L Potassium (3.5-5.1) mmol/L Chloride (98-107) mmol/L Carbon Dioxide (22-30) mmol/L Anion Gap mmol/L BUN (9-20) mg/dL Creatinine (0.66-1.25) mg/dL Est GFR (CKD-EPI)AfAm (>60 ml/min/1.73 sqM) Est GFR (CKD-EPI)NonAf (>60 ml/min/1.73 sqM) Glucose (74-99) mg/dL Plasma Lactic Acid Gm 5.9 H* (0.7-2.0) mmol/L Calcium (8.4-10.2) mg/dL Magnesium (1.6-2.3) mg/dL Total Bilirubin (0.2-1.3) mg/dL AST (17-59) U/L ALT (4-49) U/L Alkaline Phosphatase (38-126) U/L Troponin I 1.260 H* (0.000-0.034) ng/mL C-Reactive Protein (<10.0) mg/L NT-Pro-B Natriuret Pep 9250 pg/mL Total Protein (6.3-8.2) g/dL Albumin (3.5-5.0) g/dL Coronavirus (PCR) (Not Detectd) 06/15/20 06/15/20 06/15/20 Range/Units 06:54 07:21 07:41 WBC (3.8-10.6) k/uL RBC (4.30-5.90) m/uL Hgb (13.0-17.5) gm/dL Hct (39.0-53.0) % MCV (80.0-100.0) fL MCH (25.0-35.0) pg MCHC (31.0-37.0) g/dL RDW (11.5-15.5) % Plt Count (150-450) k/uL MPV Neutrophils % % Lymphocytes % % Monocytes % % Eosinophils % % Basophils % % Neutrophils # (1.3-7.7) k/uL Lymphocytes # (1.0-4.8) k/uL Monocytes # (0-1.0) k/uL Eosinophils # (0-0.7) k/uL Basophils # (0-0.2) k/uL PT (9.0-12.0) sec INR (<1.2) APTT (22.0-30.0) sec D-Dimer (<0.60) mg/L FEU Sample Site rrad ABG pH 7.53 H (7.35-7.45) ABG pCO2 29 L (35-45) mmHg ABG pO2 70 L (83-108) mmHg ABG HCO3 24 (21-25) mmol/L ABG Total CO2 25 H (19-24) mmol/L ABG O2 Saturation 94.7 (94-97) % ABG Base Excess 1.3 mmol/L Brady Test Yes FiO2 50 % Sodium (137-145) mmol/L Potassium (3.5-5.1) mmol/L Chloride (98-107) mmol/L Carbon Dioxide (22-30) mmol/L Anion Gap mmol/L BUN (9-20) mg/dL Creatinine (0.66-1.25) mg/dL Est GFR (CKD-EPI)AfAm (>60 ml/min/1.73 sqM) Est GFR (CKD-EPI)NonAf (>60 ml/min/1.73 sqM) Glucose (74-99) mg/dL Plasma Lactic Acid Gm (0.7-2.0) mmol/L Calcium (8.4-10.2) mg/dL Magnesium (1.6-2.3) mg/dL Total Bilirubin (0.2-1.3) mg/dL AST (17-59) U/L ALT (4-49) U/L Alkaline Phosphatase (38-126) U/L Troponin I (0.000-0.034) ng/mL C-Reactive Protein 361.2 H (<10.0) mg/L NT-Pro-B Natriuret Pep pg/mL Total Protein (6.3-8.2) g/dL Albumin (3.5-5.0) g/dL Coronavirus (PCR) Detected A (Not Detectd) Critical Care Time Critical Care Time: Yes Total Critical Care Time: 33 Disposition Clinical Impression: COVID-19 Disposition: ADMITTED IP TO THIS HOSP Condition: Critical Referrals: Crescencio Alonzo MD [Primary Care Provider] - 1-2 days Decision Time: 09:10
[2020-06-15 07:43] LABS: ABG Base Excess 1.3 mmol/L; ABG HCO3 24 mmol/L (21-25); ABG Oxygen Saturation 94.7 % (94-97); ABG PCO2 29 mmHg (35-45); ABG PH 7.53 (7.35-7.45); ABG PO2 70 mmHg (83-108); ABG TCO2 25 mmol/L (19-24); Allen Test Performed? Yes
[2020-06-15 07:48] LABS: INR 1.2 (<1.2); Partial Thromboplastin Time 22.7 sec (22.0-30.0); Prothrombin Time 11.9 sec (9.0-12.0)
[2020-06-15] MEDS ORDERED: MORPHINE SULFATE 4 MG/ML SYRINGE IVP STA (07:48)
[2020-06-15] MEDS ORDERED: HEPARIN SODIUM,PORCINE 5,000 UNIT/ML 1 ML VIAL IV PRN ×2 (07:49→07:51)
[2020-06-15] MEDS ORDERED: HEPARIN SODIUM,PORCINE 5,000 UNIT/ML 1 ML VIAL IV ONE (07:49)
[2020-06-15 07:50] LABS: D-Dimer >34.10 mg/L FEU (<0.60)
[2020-06-15] MEDS ORDERED: HEPARIN SODIUM,PORCINE 10,000 UNIT/ML 1 ML VIAL IV ONE (07:51)
[2020-06-15] MEDS ORDERED: HEPARIN SOD,PORK IN 0.45% NACL 25,000 UNIT in 0.45% NACL 1 250ML.BAG IV SCH (08:00)
[2020-06-15] MEDS: HEPARIN SOD,PORK IN 0.45% NACL 25,000 UNIT in 0.45% NACL 1 250ML.BAG IV SCH ×2 (08:05→20:21)
[2020-06-15] MEDS ORDERED: DEXAMETHASONE SOD PHOSPHATE 10 MG/ML 1 ML VIAL IV STA (08:27)
[2020-06-15] MEDS ORDERED: NALOXONE 0.4 MG/ML 1 ML VIAL IV PRN (08:56)
[2020-06-15] MEDS ORDERED: ACETAMINOPHEN TAB 325 MG TAB PO PRN (08:56)
[2020-06-15] MEDS ORDERED: VANCOMYCIN IV PER PHARMACY 1 EACH MISC MISCELLANE PRN (08:58)
--- NOTE | 2020-06-15 09:05 | CT ---
EXAMINATION TYPE: CT chest wo con DATE OF EXAM: 06/15/2020 COMPARISON: Radiograph same day HISTORY: 60 year-old male shortness of breath, dyspnea TECHNIQUE: Contiguous axial scanning of the chest without IV contrast. Coronal and sagittal reconstru ctions performed. CT DLP: 586.5 mGycm Automated exposure control for dose reduction was used. FINDINGS: Heart the limits of normal in size with trace pericardial fluid. LAD and circumflex coronary calcific ations are present. Ascending aorta ectatic at 3.9 cm. Ectatic upper descending thoracic aorta 3.3 cm. Mild atherosclerot ic arch calcifications. Conventional arch vessel branching anatomy. Scattered nonenlarged and borderline to mildly enlarged mediastinal lymph nodes measuring up to 1.1 c m pretracheal, precarinal, and AP window regions. Diffuse groundglass opacity is present bilaterally along with scattered septal lines. No pleural effu purnima. Visualized upper abdomen shows no gross abnormality. Bones: Overlying leads cause extensive streak and beam hardening artifact. Moderate anterior endplate spondylosis mid and lower thoracic spine. IMPRESSION: 1. DIFFUSE BILATERAL GROUNDGLASS OPACITY AND SCATTERED SEPTAL LINES. NO PLEURAL EFFUSION. CORRELATE F OR COVID PNEUMONIA, INTERSTITIAL PNEUMONITIS, AND VASCULITIS/DAH SOME POSSIBLE DIFFERENTIAL CONSID ERATIONS. 2. BORDERLINE TO MILDLY ENLARGED MEDIASTINAL LYMPH NODES MEASURING UP TO 1.1 CM LIKELY REACTIVE.
[2020-06-15] MEDS ORDERED: HYDROmorphone 1 MG/ML 1 ML SYRINGE IVP STA (09:09)
[2020-06-15] MEDS ORDERED: VANCOMYCIN 1,750 MG in SODIUM CHLORIDE 0.9% 500 ML 500 ML IVPB ONE (09:15)
[2020-06-15] MEDS: PANTOPRAZOLE 40 MG/10 ML VIAL IV SCH (09:17)
[2020-06-15] MEDS: SODIUM CHLORIDE 0.9% 1,000 ML IV SCH ×2 (09:18→20:22)
[2020-06-15] MEDS: MORPHINE SULFATE 4 MG/ML SYRINGE IV PRN (11:08)
[2020-06-15] MEDS ORDERED: HYDROcodone/APAP 10-325MG 1 EACH TAB PO PRN (11:27)
[2020-06-15] MEDS ORDERED: NITROGLYCERIN SL TABS 0.4 MG TAB SUBLINGUAL PRN (11:27)
--- NOTE | 2020-06-15 11:47 | P.CNPUL ---
History of Present Illness Consult date: 06/15/20 Reason for consult: dyspnea, cough, pneumonia Chief complaint: Progressive shortness of breath History of present illness: This is a 60-year-old male well-known to me patient recently hospitalized for cardiac cath angiogram and PTCA a month ago due to ST segment elevated NC patient has a acute on chronic systolic heart failure, he is recommended for AICD placement however it's not done yet, he came in with the onset of shortness of breath and lower extremity pain, patient was brought into the hospital for further evaluation was noted to be very hypoxic, patient noted to have elevated DMR arterial blood gas suggestive of respiratory alkalosis and severe hypoxia, lactic acid was up to 5.9, lower extremity Doppler for vascular positive, chest x-ray however revealed bilateral infiltrate computed tomography scan positive for gram glass infiltrate, BUN/creatinine is the 45 and 11.8, probes are 1.2, C- reactive protein was 361, BNP is 9250, coated 19 came back positive patient currently is on BiPAP FiO2 escalated from 50% to 80% currently setting includes 10 and 5, patient is also on heparin drip, patient is being admitted into the ICU Review of Systems All systems: negative Past Medical History Past Medical History: Chest Pain / Angina, Hyperlipidemia, Hypertension, Myocardial Infarction ([place]), Osteoarthritis ([place]), Renal Disease, Sleep Apnea/CPAP/BIPAP, Thyroid Disorder Additional Past Medical History / Comment(s): no cpap used, "lung infection"2014, constipation, hemorrhoid, poor kidney funtion- 50% function Last Myocardial Infarction Date:: 05/19/2020 History of Any Multi-Drug Resistant Organisms: None Reported Past Surgical History: Heart Catheterization With Stent, Orthopedic Surgery Additional Past Surgical History / Comment(s): LEFT HIP SX -PIN PLACED-SINCE REMOVED, one cardiac stent, rt knee surgery with clamp and screw-later removed, 2 discs in neck Past Anesthesia/Blood Transfusion Reactions: No Reported Reaction Additional Past Anesthesia/Blood Transfusion Reaction / Comment(s): . Date of Last Stent Placement:: 05/19/2020 Past Psychological History: Anxiety Smoking Status: Former smoker Past Alcohol Use History: None Reported Past Drug Use History: Marijuana - Past Family History Mother Family Medical History: Deep Vein Thrombosis (DVT) Medications and Allergies Home Medications Medication Instructions Recorded Confirmed Type Levothyroxine Sodium [Synthroid] 175 mcg PO DAILY 11/29/13 06/15/20 History Clopidogrel Bisulfate [Plavix] 75 mg PO HS 02/14/18 06/15/20 History HYDROcodone/APAP 10-325MG [[place] 1 tab PO TID PRN 02/14/18 06/15/20 History 10-325] Aspirin 81 mg PO DAILY chew 02/19/18 06/15/20 Rx Nitroglycerin Sl Tabs [Nitrostat] 0.4 mg SUBLINGUAL Q5M PRN #25 tab 02/19/18 06/15/20 Rx Amiodarone [Cordarone] 200 mg PO BID #60 tab 05/26/20 06/15/20 Rx Furosemide [Lasix] 40 mg PO BID@0900,1600 #60 tab 05/26/20 06/15/20 Rx Isosorbide Mononitrate ER [Imdur] 60 mg PO DAILY #60 tab.er.24h 05/26/20 06/15/20 Rx Metoprolol Tartrate [Lopressor] 50 mg PO BID #60 tab 05/26/20 06/15/20 Rx Mexiletine [Mexitil] 150 mg PO Q12HR #60 cap 05/26/20 06/15/20 Rx Spironolactone [Aldactone] 25 mg PO DAILY #30 tab 05/26/20 06/15/20 Rx hydrALAZINE HCL [Apresoline] 25 mg PO TID #90 tab 05/26/20 06/15/20 Rx Allergies Allergy/AdvReac Type Severity Reaction Status Date / Time atorvastatin calcium AdvReac Swelling Verified 06/15/20 08:44 [From Lipitor] Physical Exam Vitals: Vital Signs Temp Pulse Resp BP Pulse Ox 06/15/20 11:35 97.9 F 94 26 H 153/89 99 06/15/20 11:00 97 06/15/20 10:52 89 28 H 161/77 91 L 06/15/20 10:00 89 26 H 161/77 93 L 06/15/20 09:30 89 26 H 148/64 94 L 06/15/20 08:49 91 24 125/92 96 06/15/20 08:00 93 28 H 140/102 96 06/15/20 07:22 89 28 H 141/110 97 06/15/20 07:00 92 20 88/59 96 06/15/20 06:44 20 1221/20 06:36 99.7 F H 98 20 101/83 95 Intake and Output 06/14/20 06/15/20 06/15/20 22:59 06:59 14:59 Other: Weight 110.223 kg - Constitutional General appearance: disheveled, morbidly obese - EENT Eyes: PERRLA Ears: bilateral: normal - Neck Carotids: bilateral: upstroke normal - Respiratory Respiratory: bilateral: diminished - Cardiovascular Rhythm: regular Heart sounds: normal: S1, S2 - Gastrointestinal General gastrointestinal: normal bowel sounds - Neurologic Neurologic: CNII-XII intact - Musculoskeletal Musculoskeletal: gait normal, generalized weakness, strength equal bilaterally - Psychiatric Psychiatric: A&O x's 3, appropriate affect, intact judgment & insight Results - Laboratory Findings CBC and BMP: 06/15/20 06:54 06/15/20 06:54 ABG ABG pH 7.53 (7.35-7.45) H 06/15/20 07:41 ABG pCO2 29 mmHg (35-45) L 06/15/20 07:41 ABG pO2 70 mmHg (83-108) L 06/15/20 07:41 ABG O2 Saturation 94.7 % (94-97) 06/15/20 07:41 PT/INR, D-dimer PT 11.9 sec (9.0-12.0) 06/15/20 06:54 INR 1.2 (<1.2) H 06/15/20 06:54 D-Dimer >34.10 mg/L FEU (<0.60) H 06/15/20 06:54 Abnormal lab findings: Abnormal Labs 06/15/20 06/15/20 06/15/20 06:54 06:54 06:54 WBC 10.8 H Plt Count 116 L D Neutrophils # 9.5 H Lymphocytes # 0.8 L INR 1.2 H D-Dimer >34.10 H ABG pH ABG pCO2 ABG pO2 ABG Total CO2 Sodium 136 L Chloride 97 L BUN 45 H Creatinine 1.80 H Glucose 134 H Plasma Lactic Acid Gm Calcium 8.3 L AST 97 H ALT 71 H Alkaline Phosphatase 177 H Troponin I C-Reactive Protein Albumin 2.9 L Coronavirus (PCR) 06/15/20 06/15/20 06/15/20 06:54 06:54 06:54 WBC Plt Count Neutrophils # Lymphocytes # INR D-Dimer ABG pH ABG pCO2 ABG pO2 ABG Total CO2 Sodium Chloride BUN Creatinine Glucose Plasma Lactic Acid Gm 5.9 H* Calcium AST ALT Alkaline Phosphatase Troponin I 1.260 H* C-Reactive Protein 361.2 H Albumin Coronavirus (PCR) 06/15/20 06/15/20 07:21 07:41 WBC Plt Count Neutrophils # Lymphocytes # INR D-Dimer ABG pH 7.53 H ABG pCO2 29 L ABG pO2 70 L ABG Total CO2 25 H Sodium Chloride BUN Creatinine Glucose Plasma Lactic Acid Mg Calcium AST ALT Alkaline Phosphatase Troponin I C-Reactive Protein Albumin Coronavirus (PCR) Detected A - Diagnostic Findings Chest x-ray: report reviewed, image reviewed CT scan - chest: report reviewed, image reviewed Assessment and Plan Assessment: Severe sepsis Acute covid 19 pneumonia Severe ischemic cardiomyopathy acute on chronic systolic heart failure Elevated lactic acid related to above Morbid obesity and likely obstructive sleep apnea with obesity hypoventilation Chronic kidney disease History of V. tach Recent ST segment elevated NC Hypertension hypertensive cardiovascular disease Dyslipidemia Plan: Admit to ICU BiPAP support titrate oxygen down as tolerated Keep ins and outs even are negative side Elevated troponin and BNP Cardiovascular service is evaluating for another acute NC IV Decadron IV in remdesivir Deep breathing sense incentive spirometry Prone positioning if possible Time with Patient: Greater than 30
[2020-06-15 12:00] LABS: Glucose,Whole Blood 141 mg/dL (75-99)
[2020-06-15 12:13] LABS: Glucose,Whole Blood 133 mg/dL (75-99)
[2020-06-15] MEDS ORDERED: REMDESIVIR 200 MG in SODIUM CHLORIDE 0.9% 250 ML IVPB ONE (12:30)
[2020-06-15] MEDS: AMIODARONE 200 MG TAB PO SCH ×3 (14:46→21:06)
[2020-06-15] MEDS: ISOSORBIDE MONONITRATE ER 60 MG TAB.ER.24H PO SCH (14:46)
[2020-06-15] MEDS: SPIRONOLACTONE 25 MG TAB PO SCH (14:46)
[2020-06-15] MEDS: METOPROLOL TARTRATE 50 MG TAB PO SCH ×2 (14:46→20:17)
[2020-06-15] MEDS: MEXILETINE 150 MG CAP PO SCH ×2 (15:39→20:18)
[2020-06-15] MEDS: FUROSEMIDE 40 MG TAB PO SCH (15:42)
[2020-06-15] MEDS: hydrALAZINE HCL 25 MG TAB PO SCH ×2 (15:42→20:18)
--- NOTE | 2020-06-15 21:49 | P.HPIM ---
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 patient with past medical history of coronary disease previous history of myocardial infarction and stenting history of hypertension hyperlipidemia hypothyroidism and chronic obstructive sleep apnea on CPAP who was hospitalized at [facility] from 1124 till 05/27/[address] elevation need cardiac infarction post PCI and stent placement of the OM1 and the proximal circumflex, acute systolic heart failure with ejection fraction of 25-30% with ischemic cardiopathy, ventricular tachycardia secondary to acute [place] post cardioversion also was diagnosed with severe pulmonary hypertension and right ventricular systolic pressure of 68 mmHg along with severe valvular heart disease with moderate to severe mitral regurgitation and [id number] tricuspid regurgitation patient ended up leaving the hospital with vest of life with a possible need for AICD. Patient presented to the emergency department today because of worsening shortness of breath and dyspnea with lower extremity pain was seen and evaluated had an elevated d-dimer ended up going for CT of the lung after a chest x-ray was done is CTA came back with negative PE but found to have a groundglass infiltrate consistent with severe pneumonitis patient was diagnosed with Covid been positive as a Covid pneumonitis his lactic acid was elevated and patient was diagnosed with respiratory alkalosis and severe hypoxic lactic acidosis. Patient was started on heparin drip initially for possible DVT and PE was placed on BiPAP didn't keep his pulse ox above 90 percentile will consult pulmonary and cardiology and admit patient to the hospital. Review of Systems CONSTITUTIONAL: Mild obesity with acute respiratory distress EYES: No icterus sclerae, no conjunctivitis. EARS, NOSE, MOUTH, THROAT, and FACE: No sore throat, lymphadenopathy, carotid bruits or deformity. RESPIRATORY: Positive dyspnea and shortness of breath with cough and wheezes. CARDIOVASCULAR: Positive PND at of new palpitation or angina GASTROINTESTINAL: No Abd pain, Nausea or vomiting, no Diarrhea or constipation, No GI Bleed, no distention or masses. GENITOURINARY: Negative for Hematuria or UTI, no kidney stones. INTEGUMENT/BREAST: Negative for any muscular injury with mild osteoarthritis.. HEMATOLOGIC/LYMPHATIC: Negative for bleed or purpura. MUSCULOSKELTAL: Generalized muscle and joint pain. NEURLOGICAL: No LOC, Sz or syncope, blurred vision dizziness or abnormality.. BEHAVIORAL/PSYCH: Negative. ENDOCRINE: Negative. 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 Family history: His mother diet a 67 from [place], father age 68 from heart failure, patient had 9 siblings 6 of them past myocardial infarction and heart related problem. Patient has one sister is living with history of stroke to sibling with no major medical problem. Patient has 2 children with no major medical problem. Past Medical History Past Medical History: Chest Pain / Angina, Hyperlipidemia, Hypertension, Myocardial Infarction (AZ), Osteoarthritis (OA), Renal Disease, Sleep Apnea/CPAP/BIPAP, Thyroid Disorder Additional Past Medical History / Comment(s): no cpap used, "lung infection"2014, constipation, hemorrhoid, poor kidney funtion- 50% function Last Myocardial Infarction Date:: 05/19/2020 History of Any Multi-Drug Resistant Organisms: None Reported Past Surgical History: Heart Catheterization With Stent, Orthopedic Surgery Additional Past Surgical History / Comment(s): LEFT HIP SX -PIN PLACED-SINCE REMOVED, one cardiac stent, rt knee surgery with clamp and screw-later removed, 2 discs in neck Past Anesthesia/Blood Transfusion Reactions: No Reported Reaction Additional Past Anesthesia/Blood Transfusion Reaction / Comment(s): . Date of Last Stent Placement:: 05/19/2020 Past Psychological History: Anxiety Smoking Status: Former smoker Past Alcohol Use History: None Reported Past Drug Use History: Marijuana - Past Family History Mother Family Medical History: Deep Vein Thrombosis (DVT) Medications and Allergies Home Medications Medication Instructions Recorded Confirmed Type Levothyroxine Sodium [Synthroid] 175 mcg PO DAILY 11/29/13 06/15/20 History Clopidogrel Bisulfate [Plavix] 75 mg PO HS 02/14/18 06/15/20 History HYDROcodone/APAP 10-325MG [[place] 1 tab PO TID PRN 02/14/18 06/15/20 History 10-325] Aspirin 81 mg PO DAILY chew 02/19/18 06/15/20 Rx Nitroglycerin Sl Tabs [Nitrostat] 0.4 mg SUBLINGUAL Q5M PRN #25 tab 02/19/18 06/15/20 Rx Amiodarone [Cordarone] 200 mg PO BID #60 tab 05/26/20 06/15/20 Rx Furosemide [Lasix] 40 mg PO BID@0900,1600 #60 tab 05/26/20 06/15/20 Rx Isosorbide Mononitrate ER [Imdur] 60 mg PO DAILY #60 tab.er.24h 05/26/20 06/15/20 Rx Metoprolol Tartrate [Lopressor] 50 mg PO BID #60 tab 05/26/20 06/15/20 Rx Mexiletine [Mexitil] 150 mg PO Q12HR #60 cap 05/26/20 06/15/20 Rx Spironolactone [Aldactone] 25 mg PO DAILY #30 tab 05/26/20 06/15/20 Rx hydrALAZINE HCL [Apresoline] 25 mg PO TID #90 tab 05/26/20 06/15/20 Rx Allergies Allergy/AdvReac Type Severity Reaction Status Date / Time atorvastatin calcium AdvReac Swelling Verified 06/15/20 08:44 [From Lipitor] Physical Exam Vitals: Vital Signs Temp Pulse Resp BP Pulse Ox 06/15/20 15:00 87 23 101/88 92 L 06/15/20 14:52 92 26 H 101/88 87 L 06/15/20 12:00 88 29 H 153/89 87 L 06/15/20 11:35 97.9 F 94 26 H 153/89 99 06/15/20 11:00 97 06/15/20 10:52 89 28 H 161/77 91 L 06/15/20 10:00 89 26 H 161/77 93 L 06/15/20 09:30 89 26 H 148/64 94 L 06/15/20 08:49 91 24 125/92 96 06/15/20 08:00 93 28 H 140/102 96 06/15/20 07:22 89 28 H 141/110 97 06/15/20 07:00 92 20 88/59 96 06/15/20 06:44 20 06/15/20 06:36 99.7 F H 98 20 101/83 95 Intake and Output 06/15/20 06/15/20 06/15/20 06:59 14:59 22:59 Intake Total 240 80 Output Total 150 Balance 240 -70 Intake: IV 240 80 Sodium Chloride 0.9% 1, 240 80 000 ml @ 80 mls/hr IV . [id number] [facility] Rx#:[id number] Output: Urine 150 Other: Weight 110.223 kg 110.223 kg General Appearance: Obese, cooperative, in mild respiratory distress. Neck HEENT: Supple, no lymphadenopathy, no thyroid enlargement, no carotid bruits. Lungs: Decreased breath sound bilaterally with fine rhonchi positive crackles positive inspiratory expiratory wheezes. Chest Wall: Decrease expansion with deep inspiration no tenderness and no deformity was found on exam, no costochondral pain or discomfort. Still wearing vest of life. Heart: Regular rate and rhythm, S1, S2 possible history positive systolic murmur that takes. Back: Symmetric, no curvature, ROM normal, no CVA tenderness. Abdomen: Soft, non-tender, bowel sounds active all four quadrants, no masses, no organomegaly. Extremities: Extremities normal, atraumatic, trace edema Pulses: 2+ and symmetric. Skin: Skin color, texture, tugor normal, no rashes or lesions. Neurologic: Alert oriented x3 cranial nerves II through XII intact, no motor deficit, no abnormal balance or gait. Results CBC & Chem 7: 06/15/20 06:54 06/15/20 06:54 Labs: Abnormal Lab Results - Last 24 Hours (Table) 06/15/20 06/15/20 06/15/20 Range/Units 06:54 06:54 06:54 WBC 10.8 H (3.8-10.6) k/uL Plt Count 116 L D (150-450) k/uL Neutrophils # 9.5 H (1.3-7.7) k/uL Lymphocytes # 0.8 L (1.0-4.8) k/uL INR 1.2 H (<1.2) D-Dimer >34.10 H (<0.60) mg/L FEU ABG pH (7.35-7.45) ABG pCO2 (35-45) mmHg ABG pO2 (83-108) mmHg ABG Total CO2 (19-24) mmol/L Sodium 136 L (137-145) mmol/L Chloride 97 L (98-107) mmol/L BUN 45 H (9-20) mg/dL Creatinine 1.80 H (0.66-1.25) mg/dL Glucose 134 H (74-99) mg/dL POC Glucose (mg/dL) (75-99) mg/dL Plasma Lactic Acid Gm (0.7-2.0) mmol/L Calcium 8.3 L (8.4-10.2) mg/dL AST 97 H (17-59) U/L ALT 71 H (4-49) U/L Alkaline Phosphatase 177 H (38-126) U/L Troponin I (0.000-0.034) ng/mL C-Reactive Protein (<10.0) mg/L Albumin 2.9 L (3.5-5.0) g/dL Coronavirus (PCR) (Not Detectd) 06/15/20 06/15/20 06/15/20 Range/Units 06:54 06:54 06:54 WBC (3.8-10.6) k/uL Plt Count (150-450) k/uL Neutrophils # (1.3-7.7) k/uL Lymphocytes # (1.0-4.8) k/uL INR (<1.2) D-Dimer (<0.60) mg/L FEU ABG pH (7.35-7.45) ABG pCO2 (35-45) mmHg ABG pO2 (83-108) mmHg ABG Total CO2 (19-24) mmol/L Sodium (137-145) mmol/L Chloride (98-107) mmol/L BUN (9-20) mg/dL Creatinine (0.66-1.25) mg/dL Glucose (74-99) mg/dL POC Glucose (mg/dL) (75-99) mg/dL Plasma Lactic Acid Gm 5.9 H* (0.7-2.0) mmol/L Calcium (8.4-10.2) mg/dL AST (17-59) U/L ALT (4-49) U/L Alkaline Phosphatase (38-126) U/L Troponin I 1.260 H* (0.000-0.034) ng/mL C-Reactive Protein 361.2 H (<10.0) mg/L Albumin (3.5-5.0) g/dL Coronavirus (PCR) (Not Detectd) 06/15/20 06/15/20 06/15/20 Range/Units 07:21 07:41 11:06 WBC (3.8-10.6) k/uL Plt Count (150-450) k/uL Neutrophils # (1.3-7.7) k/uL Lymphocytes # (1.0-4.8) k/uL INR (<1.2) D-Dimer (<0.60) mg/L FEU ABG pH 7.53 H (7.35-7.45) ABG pCO2 29 L (35-45) mmHg ABG pO2 70 L (83-108) mmHg ABG Total CO2 25 H (19-24) mmol/L Sodium (137-145) mmol/L Chloride (98-107) mmol/L BUN (9-20) mg/dL Creatinine (0.66-1.25) mg/dL Glucose (74-99) mg/dL POC Glucose (mg/dL) (75-99) mg/dL Plasma Lactic Acid Gm 2.2 H* (0.7-2.0) mmol/L Calcium (8.4-10.2) mg/dL AST (17-59) U/L ALT (4-49) U/L Alkaline Phosphatase (38-126) U/L Troponin I (0.000-0.034) ng/mL C-Reactive Protein (<10.0) mg/L Albumin (3.5-5.0) g/dL Coronavirus (PCR) Detected A (Not Detectd) 06/15/20 06/15/20 06/15/20 Range/Units 11:59 12:11 14:33 WBC (3.8-10.6) k/uL Plt Count (150-450) k/uL Neutrophils # (1.3-7.7) k/uL Lymphocytes # (1.0-4.8) k/uL INR (<1.2) D-Dimer (<0.60) mg/L FEU ABG pH (7.35-7.45) ABG pCO2 (35-45) mmHg ABG pO2 (83-108) mmHg ABG Total CO2 (19-24) mmol/L Sodium (137-145) mmol/L Chloride (98-107) mmol/L BUN (9-20) mg/dL Creatinine (0.66-1.25) mg/dL Glucose (74-99) mg/dL POC Glucose (mg/dL) 141 H 133 H (75-99) mg/dL Plasma Lactic Acid Gm 2.7 H* (0.7-2.0) mmol/L Calcium (8.4-10.2) mg/dL AST (17-59) U/L ALT (4-49) U/L Alkaline Phosphatase (38-126) U/L Troponin I (0.000-0.034) ng/mL C-Reactive Protein (<10.0) mg/L Albumin (3.5-5.0) g/dL Coronavirus (PCR) (Not Detectd) Thrombosis Risk Factor Assmnt - DVT/VTE Prophylaxis DVT/VTE Prophylaxis: Pharmacologic Prophylaxis ordered, Mechanical Prophylaxis ordered - Choose All That Apply Each Factor Represents 1 point: Abnormal pulmonary function (COPD), Acute [place], Heart failure (<1month), Swollen legs (current) Each Risk Factor Represents 2 Points: Age 61-74 years, Patient confined to bed Each Risk Factor Represents 3 Points: Family history of DVT/PE Thrombosis Risk Factor Assessment Total Risk Factor Score: 11 Thrombosis Risk Factor Assessment Level: High Risk Assessment and Plan Assessment: 1 acute respiratory failure: Secondary to Covid pneumonitis, bilateral pneumonia, fluid overload and worsening COPD continue O2 on BiPAP, pulmonary c onsultation, continue neck management for Covid 19 pneumonitis. 2 acute Covid pneumonitis: Patient will continue Decadron, updraft, BiPAP, IV Remdesivir. The possibility of needing mechanical ventilation is still extremely high at this point. Also patient has been cover with vancomycin IV for aggressive pneumonitis. 3 severe ischemic cardiac myopathy: Patient still have vest of life, will cons ult cardiology readjust his medication. 4 mild COPD: Continue oxygen, continue steroid and nebulizer treatment. 5 running kidney disease: Continue repeat BUN/creatinine and daily basis. [address] [place]: Patient still on medication seeing cardiology regular basis possibility of need for AICD still very high at this point. 7 obstructive sleep apnea: Was on CPAP. 8 hypothyroidism: Continue patient on levothyroxine 175 g daily. 9 Hypertension: Patient remain on hydralazine, metoprolol and spironolactone. 10 ventricular tachycardia: Patient remain on Cordarone 200 mg twice a day. DVT prophylaxis: Patient has been on heparin drip will be switched to Lovenox. GI prophylaxis: Patient was started on pantoprazole IV. CODE STATUS: Full code. Admit patient to the inpatient service for more than 2 nights stay.
[2020-06-16 05:03] LABS: HCT 40.3 % (39.0-53.0); HGB 13.1 gm/dL (13.0-17.5); MCH 31.4 pg (25.0-35.0); MCHC 32.6 g/dL (31.0-37.0); MCV 96.5 fL (80.0-100.0); Mean Platelet Volume 9.2; Platelet Count 119 k/uL (150-450); RBC 4.18 m/uL (4.30-5.90); RDW 14.1 % (11.5-15.5); WBC 11.1 k/uL (3.8-10.6)
[2020-06-16 05:12] LABS: Albumin 2.5 g/dL (3.5-5.0); Calcium 7.4 mg/dL (8.4-10.2)
[2020-06-16 05:18] LABS: Potassium 4.9 mmol/L (3.5-5.1)
[2020-06-16] MEDS ORDERED: LEVOTHYROXINE 88 MCG TAB PO SCH (06:30)
[2020-06-16] MEDS ORDERED: PROPOFOL 10 MG/ML 20 ML VIAL IV ONE (07:33)
[2020-06-16] MEDS ORDERED: SUCCINYLCHOLINE CHLORIDE VIAL 200 MG/10 ML VIAL IV ONE (07:33)
--- NOTE | 2020-06-16 07:42 | XR ---
EXAMINATION TYPE: XR chest 1V DATE OF EXAM: 06/16/2020 COMPARISON: R chest x-ray 06/15/2020 HISTORY: Shortness of breath, Covid pneumonia TECHNIQUE: Single frontal view of the chest is obtained. FINDINGS: There are overlying leads and electronic devices. Bilateral airspace disease persists. No evident pneumothorax or pleural effusion. Cardiac mediastinal silhouette is stable. IMPRESSION: Correlate for pneumonia.
[2020-06-16] MEDS: SODIUM CHLORIDE 0.9% 1,000 ML IV SCH (08:00)
[2020-06-16] MEDS: SPIRONOLACTONE 25 MG TAB PO SCH (08:57)
[2020-06-16] MEDS: hydrALAZINE HCL 25 MG TAB PO SCH ×3 (08:58→20:32)
[2020-06-16] MEDS: ISOSORBIDE MONONITRATE ER 60 MG TAB.ER.24H PO SCH (08:58)
[2020-06-16] MEDS: PANTOPRAZOLE 40 MG/10 ML VIAL IV SCH (08:58)
[2020-06-16] MEDS: AMIODARONE 200 MG TAB PO SCH ×2 (08:58→20:32)
[2020-06-16] MEDS: MEXILETINE 150 MG CAP PO SCH ×2 (08:58→20:32)
[2020-06-16] MEDS: FUROSEMIDE 40 MG TAB PO SCH ×2 (08:58→16:33)
[2020-06-16] MEDS: METOPROLOL TARTRATE 50 MG TAB PO SCH ×2 (08:58→20:32)
[2020-06-16] MEDS ORDERED: DEXAMETHASONE SOD PHOSPHATE 10 MG/ML 1 ML VIAL IV SCH (09:00)
[2020-06-16] MEDS ORDERED: ASPIRIN 81 MG PO SCH (09:00)
[2020-06-16] MEDS ORDERED: VANCOMYCIN 2,000 MG in SODIUM CHLORIDE 0.9% 500 ML 500 ML IVPB SCH (10:00)
[2020-06-16] MEDS ORDERED: VANCOMYCIN 1,750 MG in SODIUM CHLORIDE 0.9% 500 ML 500 ML IVPB SCH (11:00)
--- NOTE | 2020-06-16 11:05 | P.PN ---
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 patient with past medical history of coronary disease previous history of myocardial infarction and stenting history of hypertension hyperlipidemia hypothyroidism and chronic obstructive sleep apnea on CPAP who was hospitalized at [facility] from 1124 till 05/27/[address] elevation need cardiac infarction post PCI and stent placement of the OM1 and the proximal circumflex, acute systolic heart failure with ejection fraction of 25-30% with ischemic cardiopathy, ventricular tachycardia secondary to acute [place] post cardioversion also was diagnosed with severe pulmonary hypertension and right ventricular systolic pressure of 68 mmHg along with severe valvular heart disease with moderate to severe mitral regurgitation and [id number] tricuspid regurgitation patient ended up leaving the hospital with vest of life with a possible need for AICD. Patient presented to the emergency department today because of worsening shortness of breath and dyspnea with lower extremity pain was seen and evaluated had an elevated d-dimer ended up going for CT of the lung after a chest x-ray was done is CTA came back with negative PE but found to have a groundglass infiltrate consistent with severe pneumonitis patient was diagnosed with Covid been positive as a Covid pneumonitis his lactic acid was elevated and patient was diagnosed with respiratory alkalosis and severe hypoxic lactic acidosis. Patient was started on heparin drip initially for possible DVT and PE was placed on BiPAP didn't keep his pulse ox above 90 percentile will consult pulmonary and cardiology and admit patient to the hospital. 06/16: Patient evaluated in the ICU today. He remain on Bipap with an FiO2 of 75 and is saturating at 94%. He is afebrile 97.1, blood pressure is stable at 116/86 with a heart rate of 74. He was started on Remdesivir this morning and is on day 1 of 4. He continues on Vancomycin along with Dexamethasone. Patient has complaints of bilateral lower extremity pain, will obtain Doppler of the bilateral lower extremities to rule out DVT. Patient remains on heparin. Repeat chest x-ray showed bilateral airspace disease persists, no pneumothorax or pleural effusion, consistent with pneumonia.Vest of life is in place. Objective - Vital Signs Vital signs: Vital Signs Temp 97.1 F L 06/16/20 04:00 Pulse 74 06/16/20 05:00 Resp 20 06/16/20 06:00 BP 116/86 06/16/20 06:00 Pulse Ox 94 L 06/16/20 06:00 Intake & Output 06/15/20 06/16/20 06/16/20 18:59 06:59 18:59 Intake Total 730 1296.224 Output Total 600 740 Balance 130 556.224 Weight 110.223 kg 110.5 kg Intake: IV 730 720 Remdesivir 200 mg In 250 Sodium Chloride 0.9% 250 ml @ 250 mls/hr IVPB ONCE ONE Rx#:[id number] Sodium Chloride 0.9% 1, 480 720 000 ml @ 80 mls/hr IV . [id number] [facility] Rx#:[id number] Intake, IV Titration 376.224 Amount Heparin Sod,Pork in 0.45% 376.224 NaCl 25,000 unit In 0.45 % NaCl 1 250ml.bag @ 18 UNITS/KG/HR 19.84 mls/hr IV .[id number] [facility] Rx#: [id number] Oral 200 Output: Urine 600 740 Other: Voiding Method Indwelling Catheter Indwelling Catheter - Exam General Appearance: Obese, cooperative, in mild respiratory distress. Neck HEENT: Supple, no lymphadenopathy, no thyroid enlargement, no carotid bruits Lungs: Decreased breath sound bilaterally with fine rhonchi positive crackles positive inspiratory and expiratory wheezes. Chest Wall: Decrease expansion with deep inspiration no tenderness and no deformity was found on exam, no costochondral pain or discomfort. Still wearing vest of life. Heart: Regular rate and rhythm, S1, S2 possible history positive systolic murmur that takes. Back: Symmetric, no curvature, ROM normal, no CVA tenderness. Abdomen: Soft, non-tender, bowel sounds active all four quadrants, no masses, no organomegaly. Extremities: Extremities normal, atraumatic, trace edema Pulses: 2+ and symmetric. Skin: Skin color, texture, tugor normal, no rashes or lesions. Neurologic: Alert oriented x3 cranial nerves II through XII intact, no motor deficit - Labs CBC & Chem 7: 06/16/20 04:23 06/16/20 04:23 Labs: Abnormal Lab Results - Last 24 Hours (Table) 06/15/20 06/15/20 06/15/20 Range/Units 06:54 06:54 06:54 WBC (3.8-10.6) k/uL RBC (4.30-5.90) m/uL Plt Count (150-450) k/uL INR 1.2 H (<1.2) APTT (22.0-30.0) sec D-Dimer >34.10 H (<0.60) mg/L FEU ABG pH (7.35-7.45) ABG pCO2 (35-45) mmHg ABG pO2 (83-108) mmHg ABG Total CO2 (19-24) mmol/L Carbon Dioxide (22-30) mmol/L BUN (9-20) mg/dL Glucose (74-99) mg/dL POC Glucose (mg/dL) (75-99) mg/dL Plasma Lactic Acid Gm (0.7-2.0) mmol/L Calcium (8.4-10.2) mg/dL AST (17-59) U/L ALT (4-49) U/L Alkaline Phosphatase (38-126) U/L Troponin I 1.260 H* (0.000-0.034) ng/mL C-Reactive Protein 361.2 H (<10.0) mg/L Total Protein (6.3-8.2) g/dL Albumin (3.5-5.0) g/dL Procalcitonin (0.02-0.09) ng/mL Coronavirus (PCR) (Not Detectd) 06/15/20 06/15/20 06/15/20 Range/Units 06:54 07:21 07:41 WBC (3.8-10.6) k/uL RBC (4.30-5.90) m/uL Plt Count (150-450) k/uL INR (<1.2) APTT (22.0-30.0) sec D-Dimer (<0.60) mg/L FEU ABG pH 7.53 H (7.35-7.45) ABG pCO2 29 L (35-45) mmHg ABG pO2 70 L (83-108) mmHg ABG Total CO2 25 H (19-24) mmol/L Carbon Dioxide (22-30) mmol/L BUN (9-20) mg/dL Glucose (74-99) mg/dL POC Glucose (mg/dL) (75-99) mg/dL Plasma Lactic Acid Gm (0.7-2.0) mmol/L Calcium (8.4-10.2) mg/dL AST (17-59) U/L ALT (4-49) U/L Alkaline Phosphatase (38-126) U/L Troponin I (0.000-0.034) ng/mL C-Reactive Protein (<10.0) mg/L Total Protein (6.3-8.2) g/dL Albumin (3.5-5.0) g/dL Procalcitonin 0.91 H (0.02-0.09) ng/mL Coronavirus (PCR) Detected A (Not Detectd) 06/15/20 06/15/20 06/15/20 Range/Units 11:06 11:59 12:11 WBC (3.8-10.6) k/uL RBC (4.30-5.90) m/uL Plt Count (150-450) k/uL INR (<1.2) APTT (22.0-30.0) sec D-Dimer (<0.60) mg/L FEU ABG pH (7.35-7.45) ABG pCO2 (35-45) mmHg ABG pO2 (83-108) mmHg ABG Total CO2 (19-24) mmol/L Carbon Dioxide (22-30) mmol/L BUN (9-20) mg/dL Glucose (74-99) mg/dL POC Glucose (mg/dL) 141 H 133 H (75-99) mg/dL Plasma Lactic Acid Gm 2.2 H* (0.7-2.0) mmol/L Calcium (8.4-10.2) mg/dL AST (17-59) U/L ALT (4-49) U/L Alkaline Phosphatase (38-126) U/L Troponin I (0.000-0.034) ng/mL C-Reactive Protein (<10.0) mg/L Total Protein (6.3-8.2) g/dL Albumin (3.5-5.0) g/dL Procalcitonin (0.02-0.09) ng/mL Coronavirus (PCR) (Not Detectd) 06/15/20 06/15/20 06/15/20 Range/Units 14:33 17:15 17:30 WBC (3.8-10.6) k/uL RBC (4.30-5.90) m/uL Plt Count (150-450) k/uL INR (<1.2) APTT 159.2 H* (22.0-30.0) sec D-Dimer (<0.60) mg/L FEU ABG pH (7.35-7.45) ABG pCO2 (35-45) mmHg ABG pO2 (83-108) mmHg ABG Total CO2 (19-24) mmol/L Carbon Dioxide (22-30) mmol/L BUN (9-20) mg/dL Glucose (74-99) mg/dL POC Glucose (mg/dL) (75-99) mg/dL Plasma Lactic Acid Gm 2.7 H* 2.2 H* (0.7-2.0) mmol/L Calcium (8.4-10.2) mg/dL AST (17-59) U/L ALT (4-49) U/L Alkaline Phosphatase (38-126) U/L Troponin I (0.000-0.034) ng/mL C-Reactive Protein (<10.0) mg/L Total Protein (6.3-8.2) g/dL Albumin (3.5-5.0) g/dL Procalcitonin (0.02-0.09) ng/mL Coronavirus (PCR) (Not Detectd) 06/16/20 06/16/20 06/16/20 Range/Units 04:23 04:23 04:23 WBC 11.1 H (3.8-10.6) k/uL RBC 4.18 L (4.30-5.90) m/uL Plt Count 119 L (150-450) k/uL INR (<1.2) APTT 89.8 H (22.0-30.0) sec D-Dimer (<0.60) mg/L FEU ABG pH (7.35-7.45) ABG pCO2 (35-45) mmHg ABG pO2 (83-108) mmHg ABG Total CO2 (19-24) mmol/L Carbon Dioxide 21 L (22-30) mmol/L BUN 44 H (9-20) mg/dL Glucose 111 H (74-99) mg/dL POC Glucose (mg/dL) (75-99) mg/dL Plasma Lactic Acid Gm (0.7-2.0) mmol/L Calcium 7.4 L (8.4-10.2) mg/dL AST 252 H (17-59) U/L ALT 74 H (4-49) U/L Alkaline Phosphatase 278 H (38-126) U/L Troponin I (0.000-0.034) ng/mL C-Reactive Protein (<10.0) mg/L Total Protein 6.0 L (6.3-8.2) g/dL Albumin 2.5 L (3.5-5.0) g/dL Procalcitonin (0.02-0.09) ng/mL Coronavirus (PCR) (Not Detectd) Assessment and Plan Plan: 1 acute respiratory failure: Secondary to Covid pneumonitis, bilateral pneumonia, fluid overload and worsening COPD continue O2 on BiPAP, pulmonary consultation, continue management for Covid 19 pneumonitis. 2 acute Covid pneumonitis: Patient will continue Decadron, updraft, BiPAP, IV Remdesivir. The possibility of needing mechanical ventilation is still extremely high at this point. Also patient has been cover with vancomycin IV for aggressive pneumonitis. 3 severe ischemic cardiomyopathy: Patient still have vest of life, will consult cardiology readjust his medication. 4 mild COPD: Continue oxygen, continue steroid and nebulizer treatment. 5 running kidney disease: Continue repeat BUN/creatinine and daily basis. 6 recent history of STEMI: Patient still on medication seeing cardiology regular basis possibility of need for AICD still very high at this point. 7 obstructive sleep apnea: Was on CPAP. 8 hypothyroidism: Continue patient on levothyroxine 175 g daily. 9 Hypertension: Patient remain on hydralazine, metoprolol and spironolactone. 10 ventricular tachycardia: Patient remain on Cordarone 200 mg twice a day. DVT prophylaxis: Heparin drip GI prophylaxis: Pantoprazole CODE STATUS: Full code. The above impression and plan of care have been discussed and directed by signing physician. Carmen Pang nurse practitioner acting as scribe for signing physician.
--- NOTE | 2020-06-16 11:30 | P.PN ---
Subjective Progress Note Date: 06/16/20 (Radical care time spent 35 minutes) Principal diagnosis: Severe sepsis Acute covid 19 pneumonia Severe ischemic cardiomyopathy acute on chronic systolic heart failure Elevated lactic acid related to above Morbid obesity and likely obstructive sleep apnea with obesity hypoventilation Chronic kidney disease History of V. tach Recent ST segment elevated NC Hypertension hypertensive cardiovascular disease Dyslipidemia 06/16/2020, patient seen eval reexamined during the rounds in ICU, care plan discussed with primary service as well as cardiology Dr. Rodrigez, respiratory status remains stable in fact improved somewhat, but however patient continued to require BiPAP weaning from BiPAP has caused of desaturation, currently patient is on 40 and 7 with 70% oxygen, saturation is mid 90s, labs reviewed medications reviewed, patient is on this standard therapy for: 19 pneumonia, chest x-ray stable bilateral infiltrate consistent with coated 19 pneumonia This is a 60-year-old male well-known to me patient recently hospitalized for cardiac cath angiogram and PTCA a month ago due to ST segment elevated NC patient has a acute on chronic systolic heart failure, he is recommended for AICD placement however it's not done yet, he came in with the onset of shortness of breath and lower extremity pain, patient was brought into the hospital for further evaluation was noted to be very hypoxic, patient noted to have elevated DMR arterial blood gas suggestive of respiratory alkalosis and severe hypoxia, lactic acid was up to 5.9, lower extremity Doppler for vascular positive, chest x-ray however revealed bilateral infiltrate computed tomography scan positive for gram glass infiltrate, BUN/creatinine is the 45 and 11.8, probes are 1.2, C- reactive protein was 361, BNP is 9250, coated 19 came back positive patient currently is on BiPAP FiO2 escalated from 50% to 80% currently setting includes 10 and 5, patient is also on heparin drip, patient is being admitted into the ICU Objective - Vital Signs Vital signs: Vital Signs Temp 97.1 F L 06/16/20 08:00 Pulse 77 06/16/20 10:00 Resp 15 06/16/20 10:00 BP 121/79 06/16/20 10:00 Pulse Ox 93 L 06/16/20 10:00 Intake & Output 06/15/20 06/16/20 06/16/20 18:59 06:59 18:59 Intake Total 730 1296.224 480 Output Total 600 740 150 Balance 130 556.224 330 Weight 110.223 kg 110.5 kg Intake: IV 730 720 240 Remdesivir 200 mg In 250 Sodium Chloride 0.9% 250 ml @ 250 mls/hr IVPB ONCE ONE Rx#:[id number] Sodium Chloride 0.9% 1, 480 720 240 000 ml @ 80 mls/hr IV . [id number] [facility] Rx#:[id number] Intake, IV Titration 376.224 Amount Heparin Sod,Pork in 0.45% 376.224 NaCl 25,000 unit In 0.45 % NaCl 1 250ml.bag @ 18 UNITS/KG/HR 19.84 mls/hr IV .[id number] [facility] Rx#: [id number] Oral 200 240 Output: Urine 600 740 150 Other: Voiding Method Indwelling Catheter Indwelling Catheter - Exam - Constitutional General appearance: disheveled, morbidly obese - EENT Eyes: PERRLA Ears: bilateral: normal - Neck Carotids: bilateral: upstroke normal - Respiratory Respiratory: bilateral: diminished - Cardiovascular Rhythm: regular Heart sounds: normal: S1, S2 - Gastrointestinal General gastrointestinal: normal bowel sounds - Neurologic Neurologic: CNII-XII intact - Musculoskeletal Musculoskeletal: gait normal, generalized weakness, strength equal bilaterally - Psychiatric Psychiatric: A&O x's 3, appropriate affect, intact judgment & insight - Labs CBC & Chem 7: 06/16/20 04:23 06/16/20 04:23 Labs: Abnormal Lab Results - Last 24 Hours (Table) 06/15/20 06/15/20 06/15/20 Range/Units 06:54 11:06 11:59 WBC (3.8-10.6) k/uL RBC (4.30-5.90) m/uL Plt Count (150-450) k/uL APTT (22.0-30.0) sec Carbon Dioxide (22-30) mmol/L BUN (9-20) mg/dL Glucose (74-99) mg/dL POC Glucose (mg/dL) 141 H (75-99) mg/dL Plasma Lactic Acid Gm 2.2 H* (0.7-2.0) mmol/L Calcium (8.4-10.2) mg/dL AST (17-59) U/L ALT (4-49) U/L Alkaline Phosphatase (38-126) U/L Total Protein (6.3-8.2) g/dL Albumin (3.5-5.0) g/dL Procalcitonin 0.91 H (0.02-0.09) ng/mL 06/15/20 06/15/20 06/15/20 Range/Units 12:11 14:33 17:15 WBC (3.8-10.6) k/uL RBC (4.30-5.90) m/uL Plt Count (150-450) k/uL APTT (22.0-30.0) sec Carbon Dioxide (22-30) mmol/L BUN (9-20) mg/dL Glucose (74-99) mg/dL POC Glucose (mg/dL) 133 H (75-99) mg/dL Plasma Lactic Acid Gm 2.7 H* 2.2 H* (0.7-2.0) mmol/L Calcium (8.4-10.2) mg/dL AST (17-59) U/L ALT (4-49) U/L Alkaline Phosphatase (38-126) U/L Total Protein (6.3-8.2) g/dL Albumin (3.5-5.0) g/dL Procalcitonin (0.02-0.09) ng/mL 06/15/20 06/16/20 06/16/20 Range/Units 17:30 04:23 04:23 WBC 11.1 H (3.8-10.6) k/uL RBC 4.18 L (4.30-5.90) m/uL Plt Count 119 L (150-450) k/uL APTT 159.2 H* (22.0-30.0) sec Carbon Dioxide 21 L (22-30) mmol/L BUN 44 H (9-20) mg/dL Glucose 111 H (74-99) mg/dL POC Glucose (mg/dL) (75-99) mg/dL Plasma Lactic Acid Gm (0.7-2.0) mmol/L Calcium 7.4 L (8.4-10.2) mg/dL AST 252 H (17-59) U/L ALT 74 H (4-49) U/L Alkaline Phosphatase 278 H (38-126) U/L Total Protein 6.0 L (6.3-8.2) g/dL Albumin 2.5 L (3.5-5.0) g/dL Procalcitonin (0.02-0.09) ng/mL 06/16/20 Range/Units 04:23 WBC (3.8-10.6) k/uL RBC (4.30-5.90) m/uL Plt Count (150-450) k/uL APTT 89.8 H (22.0-30.0) sec Carbon Dioxide (22-30) mmol/L BUN (9-20) mg/dL Glucose (74-99) mg/dL POC Glucose (mg/dL) (75-99) mg/dL Plasma Lactic Acid Gm (0.7-2.0) mmol/L Calcium (8.4-10.2) mg/dL AST (17-59) U/L ALT (4-49) U/L Alkaline Phosphatase (38-126) U/L Total Protein (6.3-8.2) g/dL Albumin (3.5-5.0) g/dL Procalcitonin (0.02-0.09) ng/mL Microbiology - Last 24 Hours (Table) 06/15/20 07:58 Blood Culture - Preliminary Blood No Growth after 24 hours Assessment and Plan Assessment: Severe sepsis Acute covid 19 pneumonia Severe ischemic cardiomyopathy acute on chronic systolic heart failure Elevated lactic acid related to above Morbid obesity and likely obstructive sleep apnea with obesity hypoventilation Chronic kidney disease History of V. tach Recent ST segment elevated NC Hypertension hypertensive cardiovascular disease Dyslipidemia Plan: Keep in to ICU Echocardiogram BiPAP support titrate oxygen down as tolerated Keep ins and outs even are negative side Elevated troponin and BNP Cardiovascular service is evaluating for another acute NC IV Decadron IV in remdesivir Deep breathing sense incentive spirometry Prone positioning if possible Recommendations pending plan of care as per clinical response of patient Time with Patient: Greater than 30
--- NOTE | 2020-06-16 11:53 | US ---
EXAMINATION TYPE: US venous doppler duplex LE DATE OF EXAM: 06/16/2020 11:29 AM COMPARISON: NONE CLINICAL HISTORY: edema, r/o DVT . SIDE PERFORMED: TECHNIQUE: The lower extremity deep venous system is examined utilizing real time linear array sonog soy with graded compression, doppler sonography and color-flow sonography. VESSELS IMAGED: Common Femoral Vein Deep Femoral Vein Greater Saphenous Vein * Femoral Vein Popliteal Vein Small Saphenous Vein * Proximal Calf Veins- not visualized (* superficial vessels) Technically difficult study. Patient has heavily calcified arteries, 3 people tried to dim lights in room to no avail. Patient on heavy O2. Large body habitus. Right Leg: Appears negative for DVT Left Leg: Appears negative for DVT. There is normal flow, compressibility, vascular waveforms. IMPRESSION: No evident deep venous thrombosis at or above the knees within the limitations of the exa m
[2020-06-16] MEDS: HEPARIN SOD,PORK IN 0.45% NACL 25,000 UNIT in 0.45% NACL 1 250ML.BAG IV SCH ×2 (12:25→20:32)
[2020-06-16] MEDS ORDERED: REMDESIVIR 100 MG in SODIUM CHLORIDE 0.9% 250 ML IVPB SCH (12:30)
--- NOTE | 2020-06-16 12:47 | ECHOF ---
Referral Reason:recent CT MEASUREMENTS -------- HEIGHT: 162.6 cm WEIGHT: 110.2 kg BP: FINDINGS -------- Covid positive patient: Echo 05/25, 05/22, limited echo for lv function. Overall left ventricular systolic function is moderately impaired with, an EF between 35 - 40 %. Po sterior hypokinesis Inferior Hypokinesis [id number] mitral regurgitation is present. Mild tricuspid regurgitation present. Right ventricular systolic pressure is normal at < 35 mmHg. There is no pulmonic regurgitation present. CONCLUSIONS -------- 1. Overall left ventricular systolic function is moderately impaired with, an EF between 35 - 40 %. 2. Posterior hypokinesis 3. Inferior Hypokinesis 4. Right ventricular systolic pressure is normal at < 35 mmHg. CLIPPER OPERATOR: Carol Bailon RDCS
--- NOTE | 2020-06-16 15:07 | CONS ---
CONSULTATION Tyshawn is a 60-year-old gentleman with history of previous coronary artery disease, status post recent inferior wall myocardial infarction, catheterization and angioplasty of circumflex coronary artery with severe LV dysfunction who was discharged home on a Life Vest, comes back in complaining of shortness of breath and was in severe respiratory failure and was diagnosed with COVID pneumonia. I have been consulted because of ischemic cardiomyopathy and Life Vest. The patient does not have any chest pain. He is currently on a BiPAP and is requiring and FiO2 of 70%. His CT scan of the chest was negative for pulmonary embolism. He has lactic acidosis. EKG shows sinus rhythm with nonspecific ST-T wave changes. Liver enzymes are elevated. Lactic acid is elevated. The patient is currently not in overt heart failure. He is on amiodarone because of ventricular tachycardia. He is on mexiletine. PAST MEDICAL HISTORY: Significant for coronary artery disease, status post recent myocardial infarction, ischemic cardiomyopathy with severe LV dysfunction, ventricular tachycardia status post Life Vest and hypertension. MEDICATIONS: Medications at home include include Lopressor 50 b.i.d., Synthroid, Imdur 60 daily, Lasix 40 b.i.d., Plavix 75 daily, aspirin, amiodarone, hydralazine, spironolactone and mexiletine. ALLERGIES: Allergic to LIPITOR. FAMILY HISTORY: Negative for premature coronary artery disease. SOCIAL HISTORY: Negative for smoking, EtOH abuse, or drug abuse. REVIEW OF SYSTEMS: HEENT is unremarkable. CARDIAC: As described above. RESPIRATORY: As described above. GI: Negative. GENITOURINARY: Negative. ALLERGY/IMMUNOLOGY: Negative. SKIN: Negative. MUSCULOSKELETAL: Negative. ENDOCRINE: Negative. HEMATOLOGIC: Negative. DERM: Negative. CONSTITUTIONAL: Significant for fatigue, tiredness and fever. PHYSICAL EXAMINATION: I did a tele visit with this patient. I have seen the patient from outside. He seems in respiratory distress and has a BiPAP machine on. He is afebrile. Heart rate is 77 beats per minute. Blood pressure is 120/79. Respiratory rate is 15. O2 saturation is 93% on a BiPAP and FiO2 of 75%. Chest x-ray and CT scan showed diffuse ground-glass opacity bilaterally. LABS: Labs show a hemoglobin of 13, platelet count is 119, potassium is 4.9, creatinine is 1.1. ASSESSMENT: 1. COVID pneumonia. 2. Ischemic cardiomyopathy with severe left ventricular dysfunction. 3. Coronary artery disease, status post recent myocardial infarction and angioplasty of circumflex coronary artery. 4. Ventricular tachycardia. PLAN: The patient will continue both the amiodarone and mexiletine that he is currently on. I will obtain a 2D echo on him to reassess his LV function. If the LV function improves we can gradually withdraw the antiarrhythmics. RAMON / LAI: [id number] /
[2020-06-16 20:09] VITALS: TEMP 97.5
[2020-06-16] MEDS: MORPHINE SULFATE 4 MG/ML SYRINGE IV PRN (21:52)
[2020-06-16 21:57] LABS: Glucose,Whole Blood 189 mg/dL (75-99)
[2020-06-16 22:16] LABS: ABG Base Excess -8.4 mmol/L; ABG HCO3 16 mmol/L (21-25); ABG Oxygen Saturation 77.2 % (94-97); ABG PCO2 33 mmHg (35-45); ABG PH 7.31 (7.35-7.45); Allen Test Performed? Yes
[2020-06-16 22:20] LABS: ABG PO2 52 mmHg (83-108)
[2020-06-16] MEDS ORDERED: propofoL 100 ML IV ONE (22:22)
[2020-06-16 22:51] LABS: Albumin 2.8 g/dL (3.5-5.0); Calcium 7.9 mg/dL (8.4-10.2); Potassium 4.3 mmol/L (3.5-5.1); Total Bilirubin 0.6 mg/dL (0.2-1.3); Total Protein 6.6 g/dL (6.3-8.2)
--- NOTE | 2020-06-16 22:53 | XR ---
EXAMINATION TYPE: XR chest 1V DATE OF EXAM: 06/16/2020 COMPARISON: 06/16/2020 HISTORY: Respiratory distress TECHNIQUE: Single view FINDINGS: There is pulmonary interstitial and airspace edema. There is nasogastric tube in the stomac h. Endotracheal tube is 5.5 cm from the jayro. There are chest leads. Heart is slightly enlarged. IMPRESSION: Moderately severe pulmonary edema is slightly worse than exam this morning.
[2020-06-16 23:23] LABS: Basophils # (A) 0.1 k/uL (0-0.2); Basophils % (A) 1 %; Eosinophils % (A) 0 %; HCT 42.5 % (39.0-53.0); HGB 13.1 gm/dL (13.0-17.5); Hypochromasia Moderate; Lymphocytes # (A) 1.2 k/uL (1.0-4.8); Lymphocytes % (A) 7 %; MCH 30.7 pg (25.0-35.0); MCHC 30.9 g/dL (31.0-37.0); MCV 99.4 fL (80.0-100.0); Mean Platelet Volume 9.5; Monocytes # (A) 0.5 k/uL (0-1.0); Monocytes % (A) 3 %; Neutrophils # (A) 14.7 k/uL (1.3-7.7); Neutrophils % (A) 88 %; Platelet Count 160 k/uL (150-450); RBC 4.27 m/uL (4.30-5.90); RDW 14.3 % (11.5-15.5); WBC 16.8 k/uL (3.8-10.6)
--- NOTE | 2020-06-16 23:24 | CT ---
EXAMINATION TYPE: CT brain wo con for TPA DATE OF EXAM: 06/16/2020 COMPARISON: None HISTORY: stroke Weakness CT DLP: 1872.4 mGycm Automated exposure control for dose reduction was used. Ventricles have normal size. There is no mass effect nor midline shift. There is no sign of intracran ial hemorrhage. Exam limited slightly by motion. The calvarium is intact. IMPRESSION: Negative unenhanced head CT scan.
[2020-06-16 23:29] LABS: INR 1.2 (<1.2); Partial Thromboplastin Time 66.2 sec (22.0-30.0); Prothrombin Time 12.1 sec (9.0-12.0)
--- NOTE | 2020-06-16 23:36 | CT ---
EXAMINATION TYPE: CODE STROKE: CTA head neck DATE OF EXAM: 06/16/2020 COMPARISON: None HISTORY: stroke Weakness CT DLP: 1872.4 mGycm Automated exposure control for dose reduction was used. CONTRAST: Performed with IV Contrast, patient injected with 65 mL of Isovue 370. Images were obtained from the aortic arch to the vertex of the brain with IV contrast and 3-D post pr ocessed images. Findings There is endotracheal tube. There is arterial flow in the common internal and external carotid arteri es bilaterally. There is mild plaque at the right carotid artery bifurcation and less than 20% lumina l stenosis of the origin right internal carotid artery. There is arterial flow in both vertebral luz junior. Left vertebral artery is larger than the right there is arterial flow in the vertebrobasilar ar luciano system. There is arterial flow in the anterior middle and posterior cerebral arteries. There appears to be ab rupt termination of the right middle cerebral artery at the sylvian fissure. There is relative decrea sed opacification of vessels in the right entire temporal lobe. There is absence of the distal arteri al flow in the right middle cerebral artery in the right sylvian fissure. The skull base is intact. There is arterial flow in the vertebrobasilar artery system. I see no evide nce of intracranial aneurysm or neovascularity. There is normal opacification of the venous sinuses. IMPRESSION: There is some mild plaque formation and approximate 20% stenosis at the proximal right internal carot id artery. No arterial dissection. There is abrupt termination of the right middle cerebral artery within the sylvian fissure without si gnificant brain parenchyma hypodensity. 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 Exam was discussed with the patient's nurse at 11:30 PM.
[2020-06-16 23:55] LABS: ABG Base Excess -5.9 mmol/L; ABG HCO3 21 mmol/L (21-25); ABG Oxygen Saturation 89.7 % (94-97); ABG PCO2 48 mmHg (35-45); ABG PH 7.25 (7.35-7.45); ABG PO2 69 mmHg (83-108); ABG TCO2 23 mmol/L (19-24); Allen Test Performed? Yes
[2020-06-17] MEDS ORDERED: SODIUM CHLORIDE 0.9% 1,000 ML IV ONE (00:24)
[2020-06-17 01:37] VITALS: BP 108/71; PULSE 70; RESP 35
[2020-06-17] MEDS ORDERED: CHLORHEXIDINE GLUCONATE 15 ML CUP MUCOUS MEM SCH (09:00)
--- NOTE | 2020-06-23 06:09 | CDI ---
Documentation Clarification Form Date: 06/23/20 From: Alcira Velasquez Phone: If you have a question about this query, please contact Haylee Larry, Security Technician at [phone] between 8am and 5pm Admit Date: 06/15/2020 08:56:00 AM Patient Name: Tyshawn Camacho Visit Number: [id number] Discharge Date: 06/17/2020 12:55:00 AM ATTENTION: The Clinical Documentation Specialists (CDI) and [facility] Coding Staff appreciate your assistance in clarifying documentation. Please respond to the clarification below the line at the bottom and electronically sign. The CDI & [facility] Coding staff will review the response and follow-up if needed. Please note: Queries are made part of the Legal Health Record. If you have any questions, please contact the author of this message via ITS. Dr. Tony Fisher, CKD is documented in the your consult and 08/17 PN. History/Risk Factors: Covid sepsis and pneumonia, acute respiratory failure w hypoxia, HTN w acute on chronic systolic CHF & CKD, life vest d/t ventricular tachycardia/fibrillation, ischemic cardiomyopathy, HLD, COPD w exacerbation, morbid obesity w BMI 41.8, QASIM, s/p KS Clinical indicators: 06/15-06/16/20 Current BUN: 45, 44, 42 Current CR: 1.80, 1.16, 1.41 Current GFR: 39, 68, 53 Treatment: Keep INs and OUTs even are negative side In order to capture the severity of condition, please clarify the stage of the CKD, if known: CKD Stage 1 (GFR > 90) CKD Stage 2 (GFR 60-89) CKD Stage 3a (GFR 45-59) xx CKD Stage 3b (GFR 30-44) CKD Stage 4 (GFR 15-29) CKD Stage 5 (GFR <15) ESRD Other, please specify Unable to determine MTDD
--- NOTE | 2020-06-23 06:20 | CDI ---
Documentation Clarification Form Date: 06/23/20 From: Alcira Velasquez Phone: If you have a question about this query, please contact Haylee Larry, Travel Director at [phone] between 8am and 5pm Admit Date: 06/15/2020 08:56:00 AM Patient Name: Tyshawn Camacho Visit Number: [id number] Discharge Date: 06/17/2020 12:55:00 AM ATTENTION: The Clinical Documentation Specialists (CDI) and [facility] Coding Staff appreciate your assistance in clarifying documentation. Please respond to the clarification below the line at the bottom and electronically sign. The CDI & [facility] Coding staff will review the response and follow-up if needed. Please note: Queries are made part of the Legal Health Record. If you have any questions, please contact the author of this message via ITS. Dr. Tony Fisher, Patient presented with troponin of: 1.260 Patient history/risk factors: recent MA, life vest due to ventricular tachycardia/fibrillation, ischemic cardiomyopathy, COVID sepsis & pneumonia Clinical indicators: No chest pain, EKG shows sinus rhythm with nonspecific ST-T wave changes. Treatment: Echo, on Amiodarone and Mexiletine, Plavix, In your professional opinion, can you please specify the diagnosis, if any, indicated by the above clinical indicators and treatment? Type II MA xx NSTEMI STEMI Non Q Wave MA Chest pain -Cause if known Unstable Angina Costochondritis Other, please specify Unable to determine MTDD
--- NOTE | 2020-06-28 22:17 | P.DS ---
Providers Date of admission: 06/15/20 08:56 Expected date of discharge: 06/17/20 Attending physician: Edna Gonzalez Consults: 06/15/20 08:56 Consult Physician Stat Consulting Provider: Maco Cleveland Consult Reason/Comments: icu patient, covid 19 Do you want consulting provider notified?: Already Contacted 06/15/20 21:30 Consult Physician Routine Consulting Provider: Suzi Rodrigez Consult Reason/Comments: CMP, CHF Do you want consulting provider notified?: Yes 06/16/20 22:20 Consult Physician Stat Consulting Provider: Lloyd Pérez Consult Reason/Comments: stroke symptoms Do you want consulting provider notified?: Yes Primary care physician: Crescencio Alonzo [facility] Course: 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 patient with past medical history of coronary disease previous history of myocardial infarction and stenting history of hypertension hyperlipidemia hypothyroidism and chronic obstructive sleep apnea on CPAP who was hospitalized at [facility] from 1124 till 05/27/[address] elevation need cardiac infarction post PCI and stent placement of the OM1 and the proximal circumflex, acute systolic heart failure with ejection fraction of 25-30% with ischemic cardiopathy, ventricular tachycardia secondary to acute OH post cardioversion also was diagnosed with severe pulmonary hypertension and right ventricular systolic pressure of 68 mmHg along with severe valvular heart disease with moderate to severe mitral regurgitation and [id number] tricuspid regurgitation patient ended [facility] with [facility] of life with a possible need for AICD. Patient presented to the emergency department today because of worsening shortness of breath and dyspnea with lower extremity pain was seen and evaluated had an elevated d-dimer ended up going for CT of the lung after a chest x-ray was done is CTA came back with negative PE but found to have a groundglass infiltrate consistent with severe pneumonitis patient was diagnosed with Covid been positive as a Covid pneumonitis his lactic acid was elevated and patient was diagnosed with respiratory alkalosis and severe hypoxic lactic acidosis. Patient was started on heparin drip initially for possible DVT and PE was placed on BiPAP didn't keep his pulse ox above 90 percentile will consult pulmonary and cardiology and admit patient to the hospital. 06/16: Patient evaluated in the ICU today. He remain on Bipap with an FiO2 of 75 and is saturating at 94%. He is afebrile 97.1, blood pressure is stable at 116/86 with a heart rate of 74. He was started on Remdesivir this morning and is on day 1 of 4. He continues on Vancomycin along with Dexamethasone. Patient has complaints of bilateral lower extremity pain, will obtain Doppler of the bilat eral lower extremities to rule out DVT. Patient remains on heparin. Repeat chest x-ray showed bilateral airspace disease persists, no pneumothorax or pleural effusion, consistent with pneumonia.Vest of life is in place. 06/17 severe Headache and sign of stroke; CTA was positive for Hyperacute right middle cerebral infarct, Pt will be transferred to [facility] for Neurosurgery service. Objective - Vital Signs Vital signs: Vital Signs Temp 97.1 F L 06/16/20 04:00 Pulse 74 06/16/20 05:00 Resp 20 06/16/20 06:00 BP 116/86 06/16/20 06:00 Pulse Ox 94 L 06/16/20 06:00 Intake & Output 06/15/20 06/16/20 06/16/20 18:59 06:59 18:59 Intake Total 730 1296.224 Output Total 600 740 Balance 130 556.224 Weight 110.223 kg 110.5 kg Intake: IV 730 720 Remdesivir 200 mg In 250 Sodium Chloride 0.9% 250 ml @ 250 mls/hr IVPB ONCE ONE Rx#:[id number] Sodium Chloride 0.9% 1, 480 720 000 ml @ 80 mls/hr IV . [id number] [facility] Rx#:[id number] Intake, IV Titration 376.224 Amount Heparin Sod,Pork in 0.45% 376.224 NaCl 25,000 unit In 0.45 % NaCl 1 250ml.bag @ 18 UNITS/KG/HR 19.84 mls/hr IV .[id number] [facility] Rx#: [id number] Oral 200 Output: Urine 600 740 Other: Voiding Method Indwelling Catheter Indwelling Catheter - Exam General Appearance: Obese, cooperative, in mild respiratory distress. Neck HEENT: Supple, no lymphadenopathy, no thyroid enlargement, no carotid bruits Lungs: Decreased breath sound bilaterally with fine rhonchi positive crackles positive inspiratory and expiratory wheezes. Chest Wall: Decrease expansion with deep inspiration no tenderness and no deformity was found on exam, no costochondral pain or discomfort. Still wearing vest of life. Heart: Regular rate and rhythm, S1, S2 possible history positive systolic murmur that takes. Back: Symmetric, no curvature, ROM normal, no CVA tenderness. Abdomen: Soft, non-tender, bowel sounds active all four quadrants, no masses, no organomegaly. Extremities: Extremities normal, atraumatic, trace edema Pulses: 2+ and symmetric. Skin: Skin color, texture, tugor normal, no rashes or lesions. Neurologic: Alert oriented x3 cranial nerves II through XII intact, no motor deficit - Labs CBC & Chem 7: 06/16/20 04:23 06/16/20 04:23 Labs: Abnormal Lab Results - Last 24 Hours (Table) 06/15/20 06/15/20 06/15/20 Range/Units 06:54 06:54 06:54 WBC (3.8-10.6) k/uL RBC (4.30-5.90) m/uL Plt Count (150-450) k/uL INR 1.2 H (<1.2) APTT (22.0-30.0) sec D-Dimer >34.10 H (<0.60) mg/L FEU ABG pH (7.35-7.45) ABG pCO2 (35-45) mmHg ABG pO2 (83-108) mmHg ABG Total CO2 (19-24) mmol/L Carbon Dioxide (22-30) mmol/L BUN (9-20) mg/dL Glucose (74-99) mg/dL POC Glucose (mg/dL) (75-99) mg/dL Plasma Lactic Acid Gm (0.7-2.0) mmol/L Calcium (8.4-10.2) mg/dL AST (17-59) U/L ALT (4-49) U/L Alkaline Phosphatase (38-126) U/L Troponin I 1.260 H* (0.000-0.034) ng/mL C-Reactive Protein 361.2 H (<10.0) mg/L Total Protein (6.3-8.2) g/dL Albumin (3.5-5.0) g/dL Procalcitonin (0.02-0.09) ng/mL Coronavirus (PCR) (Not Detectd) 06/15/20 06/15/20 06/15/20 Range/Units 06:54 07:21 07:41 WBC (3.8-10.6) k/uL RBC (4.30-5.90) m/uL Plt Count (150-450) k/uL INR (<1.2) APTT (22.0-30.0) sec D-Dimer (<0.60) mg/L FEU ABG pH 7.53 H (7.35-7.45) ABG pCO2 29 L (35-45) mmHg ABG pO2 70 L (83-108) mmHg ABG Total CO2 25 H (19-24) mmol/L Carbon Dioxide (22-30) mmol/L BUN (9-20) mg/dL Glucose (74-99) mg/dL POC Glucose (mg/dL) (75-99) mg/dL Plasma Lactic Acid Gm (0.7-2.0) mmol/L Calcium (8.4-10.2) mg/dL AST (17-59) U/L ALT (4-49) U/L Alkaline Phosphatase (38-126) U/L Troponin I (0.000-0.034) ng/mL C-Reactive Protein (<10.0) mg/L Total Protein (6.3-8.2) g/dL Albumin (3.5-5.0) g/dL Procalcitonin 0.91 H (0.02-0.09) ng/mL Coronavirus (PCR) Detected A (Not Detectd) 06/15/20 06/15/20 06/15/20 Range/Units 11:06 11:59 12:11 WBC (3.8-10.6) k/uL RBC (4.30-5.90) m/uL Plt Count (150-450) k/uL INR (<1.2) APTT (22.0-30.0) sec D-Dimer (<0.60) mg/L FEU ABG pH (7.35-7.45) ABG pCO2 (35-45) mmHg ABG pO2 (83-108) mmHg ABG Total CO2 (19-24) mmol/L Carbon Dioxide (22-30) mmol/L BUN (9-20) mg/dL Glucose (74-99) mg/dL POC Glucose (mg/dL) 141 H 133 H (75-99) mg/dL Plasma Lactic Acid Gm 2.2 H* (0.7-2.0) mmol/L Calcium (8.4-10.2) mg/dL AST (17-59) U/L ALT (4-49) U/L Alkaline Phosphatase (38-126) U/L Troponin I (0.000-0.034) ng/mL C-Reactive Protein (<10.0) mg/L Total Protein (6.3-8.2) g/dL Albumin (3.5-5.0) g/dL Procalcitonin (0.02-0.09) ng/mL Coronavirus (PCR) (Not Detectd) 06/15/20 06/15/20 06/15/20 Range/Units 14:33 17:15 17:30 WBC (3.8-10.6) k/uL RBC (4.30-5.90) m/uL Plt Count (150-450) k/uL INR (<1.2) APTT 159.2 H* (22.0-30.0) sec D-Dimer (<0.60) mg/L FEU ABG pH (7.35-7.45) ABG pCO2 (35-45) mmHg ABG pO2 (83-108) mmHg ABG Total CO2 (19-24) mmol/L Carbon Dioxide (22-30) mmol/L BUN (9-20) mg/dL Glucose (74-99) mg/dL POC Glucose (mg/dL) (75-99) mg/dL Plasma Lactic Acid Gm 2.7 H* 2.2 H* (0.7-2.0) mmol/L Calcium (8.4-10.2) mg/dL AST (17-59) U/L ALT (4-49) U/L Alkaline Phosphatase (38-126) U/L Troponin I (0.000-0.034) ng/mL C-Reactive Protein (<10.0) mg/L Total Protein (6.3-8.2) g/dL Albumin (3.5-5.0) g/dL Procalcitonin (0.02-0.09) ng/mL Coronavirus (PCR) (Not Detectd) 06/16/20 06/16/20 06/16/20 Range/Units 04:23 04:23 04:23 WBC 11.1 H (3.8-10.6) k/uL RBC 4.18 L (4.30-5.90) m/uL Plt Count 119 L (150-450) k/uL INR (<1.2) APTT 89.8 H (22.0-30.0) sec D-Dimer (<0.60) mg/L FEU ABG pH (7.35-7.45) ABG pCO2 (35-45) mmHg ABG pO2 (83-108) mmHg ABG Total CO2 (19-24) mmol/L Carbon Dioxide 21 L (22-30) mmol/L BUN 44 H (9-20) mg/dL Glucose 111 H (74-99) mg/dL POC Glucose (mg/dL) (75-99) mg/dL Plasma Lactic Acid Gm (0.7-2.0) mmol/L Calcium 7.4 L (8.4-10.2) mg/dL AST 252 H (17-59) U/L ALT 74 H (4-49) U/L Alkaline Phosphatase 278 H (38-126) U/L Troponin I (0.000-0.034) ng/mL C-Reactive Protein (<10.0) mg/L Total Protein 6.0 L (6.3-8.2) g/dL Albumin 2.5 L (3.5-5.0) g/dL Procalcitonin (0.02-0.09) ng/mL Coronavirus (PCR) (Not Detectd) Assessment and Plan Plan: 1 acute respiratory failure: Secondary to Covid pneumonitis, bilateral pneumonia, fluid overload and worsening COPD continue O2 on BiPAP, pulmonary consultation, continue management for Covid 19 pneumonitis. 2 acute Covid pneumonitis: Patient will continue Decadron, updraft, BiPAP, IV Remdesivir. The possibility of needing mechanical ventilation is still extremel y high at this point. Also patient has been cover with vancomycin IV for aggressive pneumonitis. 3 severe ischemic cardiomyopathy: Patient still have vest of life, will consult cardiology readjust his medication. 4 mild COPD: Continue oxygen, continue steroid and nebulizer treatment. 5 running kidney disease: Continue repeat BUN/creatinine and daily basis. 6 recent history of STEMI: Patient still on medication seeing cardiology regular basis possibility of need for AICD still very high at this point. 7 obstructive sleep apnea: Was on CPAP. 8 hypothyroidism: Continue patient on levothyroxine 175 g daily. 9 Hypertension: Patient remain on hydralazine, metoprolol and spironolactone. 10 ventricular tachycardia: Patient remain on Cordarone 200 mg twice a day. DVT prophylaxis: Heparin drip GI prophylaxis: Pantoprazole 06/17 severe Headache and sign of stroke; CTA was positive for Hyperacute right middle cerebral infarct, Pt will be transferred to [facility] for Neurosurgery service. Patient Condition at Discharge: Critical Plan - Discharge Summary New Discharge Prescriptions: No Action Levothyroxine Sodium [Synthroid] 175 mcg PO DAILY HYDROcodone/APAP 10-325MG [[place] 10-325] 1 tab PO TID PRN PRN Reason: Pain Clopidogrel Bisulfate [Plavix] 75 mg PO HS Aspirin 81 mg PO DAILY chew Nitroglycerin Sl Tabs [Nitrostat] 0.4 mg SUBLINGUAL Q5M PRN #25 tab PRN Reason: Chest Pain Spironolactone [Aldactone] 25 mg PO DAILY #30 tab hydrALAZINE HCL [Apresoline] 25 mg PO TID #90 tab Amiodarone [Cordarone] 200 mg PO BID #60 tab Isosorbide Mononitrate ER [Imdur] 60 mg PO DAILY #60 tab.er.24h Furosemide [Lasix] 40 mg PO BID@0900,1600 #60 tab Metoprolol Tartrate [Lopressor] 50 mg PO BID #60 tab Mexiletine [Mexitil] 150 mg PO Q12HR #60 cap Discharge Medication List Levothyroxine Sodium [Synthroid] 175 mcg PO DAILY 11/29/13 [History] Clopidogrel Bisulfate [Plavix] 75 mg PO HS 02/14/18 [History] HYDROcodone/APAP 10-325MG [[place] 10-325] 1 tab PO TID PRN 02/14/18 [History] Aspirin 81 mg PO DAILY chew 02/19/18 [Rx] Nitroglycerin Sl Tabs [Nitrostat] 0.4 mg SUBLINGUAL Q5M PRN #25 tab 02/19/18 [Rx] Amiodarone [Cordarone] 200 mg PO BID #60 tab 05/26/20 [Rx] Furosemide [Lasix] 40 mg PO BID@0900,1600 #60 tab 05/26/20 [Rx] Isosorbide Mononitrate ER [Imdur] 60 mg PO DAILY #60 tab.er.24h 05/26/20 [Rx] Metoprolol Tartrate [Lopressor] 50 mg PO BID #60 tab 05/26/20 [Rx] Mexiletine [Mexitil] 150 mg PO Q12HR #60 cap 05/26/20 [Rx] Spironolactone [Aldactone] 25 mg PO DAILY #30 tab 05/26/20 [Rx] hydrALAZINE HCL [Apresoline] 25 mg PO TID #90 tab 05/26/20 [Rx] Follow up Appointment(s)/Referral(s): Crescencio Alonzo MD [Primary Care Provider] - 1-2 days Discharge Disposition: DISCH/TRANS TO A [facility] [place]
== END 2020-06-17 00:55 | disposition short-term general hospital (02) | DRG 871 ==
LOC: EC 06:35 → 2SICU 08:56
PROVIDERS: ADMIT Family Medicine; ATTEND Family Medicine
PROC: XW033E5 Introduction of Remdesivir Anti-infective into Peripheral Vein, Percutaneous Approach, New Technology Group 5 (ICD-10-PCS; 2020-06-15)
PROC: 5A09457 Assistance with Respiratory Ventilation, 24-96 Consecutive Hours, Continuous Positive Airway Pressure (ICD-10-PCS; 2020-06-15)
PROC: 5A1935Z Respiratory Ventilation, Less than 24 Consecutive Hours (ICD-10-PCS; principal; 2020-06-16)
PROC: 0BH17EZ Insertion of Endotracheal Airway into Trachea, Via Natural or Artificial Opening (ICD-10-PCS; 2020-06-16)
PROC: 0D9670Z Drainage of Stomach with Drainage Device, Via Natural or Artificial Opening (ICD-10-PCS; 2020-06-16)
DX: A41.89 Other specified sepsis (principal); U07.1 COVID-19; J96.01 Acute respiratory failure with hypoxia; I49.01 Ventricular fibrillation; I21.4 Non-ST elevation (NSTEMI) myocardial infarction; I50.23 Acute on chronic systolic (congestive) heart failure; J15.9 Unspecified bacterial pneumonia; J12.89 Other viral pneumonia; I63.511 Cerebral infarction due to unspecified occlusion or stenosis of right middle cerebral artery; Z95.811 Presence of heart assist device; J44.0 Chronic obstructive pulmonary disease with (acute) lower respiratory infection; I47.2 Ventricular tachycardia; E87.4 Mixed disorder of acid-base balance; I13.0 Hypertensive heart and chronic kidney disease with heart failure and stage 1 through stage 4 chronic kidney disease, or unspecified chronic kidney disease; E66.2 Morbid (severe) obesity with alveolar hypoventilation; Z68.41 Body mass index [BMI] 40.0-44.9, adult; N18.32 Chronic kidney disease, stage 3b; I27.20 Pulmonary hypertension, unspecified; R65.20 Severe sepsis without septic shock; R29.714 NIHSS score 14; I25.5 Ischemic cardiomyopathy; E03.9 Hypothyroidism, unspecified; E78.5 Hyperlipidemia, unspecified; G47.33 Obstructive sleep apnea (adult) (pediatric); I08.1 Rheumatic disorders of both mitral and tricuspid valves; I25.10 Atherosclerotic heart disease of native coronary artery without angina pectoris; I25.2 Old myocardial infarction; M79.604 Pain in right leg; M79.605 Pain in left leg; M19.90 Unspecified osteoarthritis, unspecified site; Z79.82 Long term (current) use of aspirin; Z79.02 Long term (current) use of antithrombotics/antiplatelets; Z79.890 Hormone replacement therapy; Z79.899 Other long term (current) drug therapy; Z87.891 Personal history of nicotine dependence; Z95.5 Presence of coronary angioplasty implant and graft; Z86.59 Personal history of other mental and behavioral disorders; Z88.8 Allergy status to other drugs, medicaments and biological substances; Z82.49 Family history of ischemic heart disease and other diseases of the circulatory system; Z82.3 Family history of stroke; Z83.2 Family history of diseases of the blood and blood-forming organs and certain disorders involving the immune mechanism
CPT/HCPCS: 36415; 36600; 70450; 70496; 70498; 71045; 71250; 80053; 82805; 83605; 83735; 83880; 84145; 84484; 85025; 85027; 85379; 85610; 85730; 86140; 87040; 87635; 93005; 93306; 93970; 94002; 94660; 96361; 96365; 96366; 96368; 96375; 96376; 99291